=== PATIENT | male | born 1970 | race Caucasian/White ===

== ENCOUNTER 2022-12-29 13:15 | Outpatient (OUT) | payer OTHER, SELFPAY | END 2022-12-29 13:16 | disposition home or self-care (01) | LOC: SLEEP 12-30 07:55 | PROVIDERS: PCP Internal Medicine; Visit Provider Internal Medicine | DX: G47.33 Obstructive sleep apnea (adult) (pediatric) (principal) | CPT/HCPCS: 95806 ==

== ENCOUNTER 2023-04-20 16:53 | Outpatient (OUT) | payer OTHER, SELFPAY ==
--- NOTE | 2023-04-20 | XR_ITS ---
The [address] [address] Patient Name: MARIE DOMINIQUE MRN: [id number] date: 1970 Sex: M Assigned Patient Location: [facility] Current Patient Location: Accession/Order Number: [id number] Exam Date: 04/20/2023 17:18 Report Date: 04/21/2023 08:27 At the request of: SHAIKH PATRICK Procedure: XR cervical spine 2-3V EXAMINATION: XR cervical spine 2-3V HISTORY: neck pain M54.2 COMPARISON: No relevant comparison available. FINDINGS: BONES: Reversal of normal cervical lordosis. No acute fracture or spondylolisthesis. [id number] degenerative changes most significant C6-C7 DISC SPACES: Moderate disc space narrowing C6-C7 PARASPINOUS: Negative. No paraspinous abnormality is seen. OTHER: Negative. XR/XR cervical spine 2-3V IMPRESSION: Moderate degenerative changes C6-C7 with reversal cervical lordosis Electronically authenticated by: SUMAYA LOVE Date: 04/21/2023 08:27
== END 2023-04-20 16:54 | disposition home or self-care (01) ==
LOC: RAD 16:55
PROVIDERS: PCP Internal Medicine; Visit Provider Internal Medicine
DX: M54.2 Cervicalgia (principal)
CPT/HCPCS: 72040

== ENCOUNTER 2023-04-25 15:24 | Outpatient (RCR) | payer OTHER, SELFPAY | END 2023-05-07 15:54 | disposition home or self-care (01) | LOC: PT 15:24 | PROVIDERS: PCP Internal Medicine; Visit Provider Internal Medicine | DX: M54.2 Cervicalgia (principal) | CPT/HCPCS: 97110; 97140; 97163 ==

== ENCOUNTER 2023-05-08 23:25 | Inpatient (IN) | payer OTHER, SELFPAY ==
[2023-05-08 23:29] VITALS: BP 163/97; PULSE 82; RESP 22; TEMP 37.1; O2SAT 97; BMI 39.5
[2023-05-08 23:33] VITALS: BP 163/97; O2SAT 97
--- OUTSIDE RECORDS SUMMARY | 2023-05-08 23:43 | XMS_ITS | CCD ---
Author Name Unknown Address [address] [place] [address] Organization [facility] Care Team Providers Care Dice Dealer Name Role Phone Vj Evans Primary Care Provider [phone] VJ EVANS Referring Unavailable VJ EVANS Primary Care Unavailable VJ EVANS Referring Unavailable VJ EVANS Primary Care Unavailable Beata Cuello Unavailable FAWWAD, PINEDA H Admitting Unavailable FAWWAD, PINEDA H Attending Unavailable FAWWAD, PINEDA H Primary Care Unavailable FAWWAD, PINEDA H Admitting Unavailable FAWWAD, PINEDA H Attending Unavailable FAWWAD, PINEDA H Primary Care Unavailable FAWWAD, PINEDA H Admitting Unavailable FAWWAD, PINEDA H Attending Unavailable FAWWAD, PINEDA H Primary Care Unavailable FAWWAD, PINEDA H Consulting Unavailable Shandra Sánchez Unavailable Patricia Flower Unavailable FAWWAD, PINEDA Attending Unavailable FAWWAD, PINEDA Attending Unavailable Medications Current Medications Medication Drug Class(es) Dates Sig (Normalized) Sig (Original) 0.25 MG, 0.5 MG Dose 3 ML semaglutide 0.68 MG/ML Pen Injector [Ozempic] (2 sources) Ozempic (0.25 or 0.5 MG/DOSE) 2 MG/3ML as directed Subcutaneous Active dextromethorphan hydrobromide 15 mg / guaiFENesin 400 mg / pseudoephedrine hydrochloride 60 mg oral tablet (1 source) alpha-Adrenergic Agonist, Uncompetitive C-uvzkjs-E-aspartat e Receptor Antagonist, Sigma-1 Agonist Start: 03-15-2023 take 4 tablets by mouth every twenty-four hours as needed Capmist DM 60-15-400 MG as needed Orally every 4-6 hours as needed, max 4 tablets in 24 hours for 5 days Feb, Active hydrocortisone 10 mg/ml / neomycin 3.5 mg/ml / polymyxin b 66064 unt/ml otic solution (1 source) Aminoglycoside Antibacterial, Polymyxin-class Antibacterial, Corticosteroid Start: 07-06-2021 Neomycin-Polymyxi n-HC 3.5-22703-2 4 drops into affected ear Otic Three times a day for 7 day(s) Jun, Active predniSONE 20 mg oral tablet (3 sources) Start: 12-19-2022 take 1 tablet by mouth every twelve hours prednisone 20 MG 1 tablet Orally BID for 5 Feb, Active Problems Active Problems Problem Classification Problem Date Documented Da te Episodic/Chronic Other upper respiratory infections (2 sources) Acute pharyngitis, unspecified; Translations: [Acute upper respiratory infection, unspecified] Episodic Unclassified (3 sources) Patient encounter status; Translations: [Screening PSA (prostate specific antigen)] Past or Other Problems Problem Classification Problem Date Documented Da te Episodic/Chronic Other ear and sense organ disorders (1 source) Impacted cerumen, left ear Onset: 07-06-2021 Resolved: 07-06-2021 Episodic Other screening for suspected conditions (not mental disorders or infectious disease) (2 sources) Encounter for screening for diabetes mellitus; Translations: [Encounter for screening for lipoid disorders] Onset: 09-17-2021 Episodic Unclassified (1 source) Contact with and (suspected) exposure to covid-19 Z20.822 Viral infection (1 source) COVID-19 Results Test Name Value Interpretation Reference Range Facility COVID/FLU RT-PCRon SARS-CoV-2 (COVID-19) RNA CARLOS+probe Ql (Unsp spec) Negative [facility] Other COVID/FLU RT-PCR Negative [employer] Other COVID Quick Testingon 2022 Result Positive [facility] Other Quick Strepon 12-19-2022 S. pyogenes Org specific cx Ql (Throat) Negative [facility] Other Quick Strep [facility] Other CBC AUTO DIFFon 09-10-2021 BASO # 0.1 103/ul Normal 0.0-0.1 [facility] Comment on above: Performed By: #### C BC #### [facility] [address] [place] [address] Dr. Taylor Obregon Basophils/100 WBC (Bld) 0.6 % Normal 0.2-2.0 [facility] Comment on above: Performed By: #### C BC #### [facility] [address] [place] [address] Dr. Taylor Obregon EO # 0.1 103/ul Normal 0.0-0.7 [facility] Comment on above: Performed By: #### C BC #### [facility] [address] [place] [address] Dr. Taylor Obregon Eosinophils/100 WBC (Bld) 1.3 % Normal 0.9-7.0 [facility] Comment on above: Performed By: #### C BC #### [facility] [address] [place] [address] Dr. Taylor Obregon Erythrocyte distribution width (RBC) [Ratio] 12.7 % Normal 11.0-15.0 [facility] Comment on above: Performed By: #### C BC #### [facility] [address] [place] [address] Dr. Taylor Obregon Hematocrit (Bld) [Volume fraction] 43.3 % Normal 42.0-54.0 [facility] Comment on above: Performed By: #### C BC #### [facility] [address] [place] [address] Dr. Taylor Obregon Hemoglobin (Bld) [Mass/Vol] 14.5 g/dL Normal 14.0-18.0 [facility] Comment on above: Performed By: #### C BC #### [facility] [address] [place] [address] Dr. Taylor Obregon IG # 0.01 10e3/ul Normal 0.00-0.03 [facility] Comment on above: Performed By: #### C BC #### [facility] [address] [place] [address] Dr. Taylor Obregon IG % 0.1 % Normal 0.0-0.5 [facility] Comment on above: Performed By: #### C BC #### [facility] [address] [place] [address] Dr. Taylor Obregon LYMPH # 3.1 103/ul Normal 1.2-3.8 [facility] Comment on above: Performed By: #### C BC #### [facility] [address] [place] [address] Dr. Taylor Obregon Lymphocytes/100 WBC (Bld) 39.4 % Normal 20.5-60.0 [facility] Comment on above: Performed By: #### C BC #### [facility] [address] [place] [address] Dr. Taylor Obregon MANUAL DIFF REQ NO Normal [facility] Comment on above: Performed By: #### C BC #### [facility] [address] [place] [address] Dr. Taylor Obregon MCH (RBC) [Entitic mass] 30.2 pg Normal 25.9-34.0 [facility] Comment on above: Performed By: #### C BC #### [facility] [address] [place] [address] Dr. Taylor Obregon MCHC (RBC) [Mass/Vol] 33.5 g/dL Normal 29.9-35.2 [facility] Comment on above: Performed By: #### C BC #### [facility] [address] [place] [address] Dr. Taylor Obregon MCV (RBC) [Entitic vol] 90.2 fL Normal 80.0-94.0 [facility] Comment on above: Performed By: #### C BC #### [facility] [address] [place] [address] Dr. Taylor Obregon MONO # 0.6 103/ul Normal 0.3-0.8 [facility] Comment on above: Performed By: #### C BC #### [facility] [address] [place] [address] Dr. Taylor Obregon Monocytes/100 WBC (Bld) 7.2 % Normal 1.7-12.0 [facility] Comment on above: Performed By: #### C BC #### [facility] [address] [place] [address] Dr. Taylor Obregon NEUT # 4.1 103/ul Normal 1.4-6.5 [facility] Comment on above: Performed By: #### C BC #### [facility] [address] [place] [address] Dr. Taylor Obregon Neutrophils/100 WBC (Bld) 51.4 % Normal 43.0-75.0 [facility] Comment on above: Performed By: #### C BC #### [facility] [address] [place] [address] Dr. Taylor Obregon Platelet mean volume (Bld) [Entitic vol] 9.5 fL Normal 9.5-13.5 [facility] Comment on above: Performed By: #### C BC #### [facility] [address] [place] [address] Dr. Taylor Obregon PLT 249 103/ul Normal 150-450 [facility] Comment on above: Performed By: #### C BC #### [facility] [address] [place] [address] Dr. Taylor Obregon RBC 4.80 106/ul Normal 4.70-6.10 [facility] Comment on above: Performed By: #### C BC #### [facility] [address] [place] [address] Dr. Taylor Obregon WBC 7.9 103/ul Normal 4.0-11.0 [facility] Comment on above: Performed By: #### C BC #### [facility] [address] [place] [address] Dr. Taylor Obregon GLYCOHEMOGLOBIN A1Con 2021 ADA RECOMMENDATION SEE BELOW Normal [facility] Comment on above: Result Comment: ADA RECOMMENDED LIMIT 4.0 - 6.0 ADA THERAPEUTIC TARGET < 7.0 ACTION SUGGESTED > 7.0 Performed By: #### A 1C #### [facility] [address] [place] [address] Dr. Taylor Obregon Glucose [Mass/Vol] 140 mg/dL Normal [facility] Comment on above: Performed By: #### A 1C #### [facility] [address] [address] [address] Taylor Obregon HbA1c (Bld) [Mass fraction] 6.5 % Critically high 4.5-6.2 [facility] Comment on above: Performed By: #### A 1C #### [facility] [address] [place] [address] Dr. Taylor Obregon LIPID PROFILEon 09-10-2021 CHOL-HDL RATIO NORM SEE BELOW Normal [facility] Comment on above: Result Comment: 3.3 - 4.4 LOW RISK 4.4 - 7.1 AVERAGE RISK 7.1 - 11.0 MODERATE RISK >11.0 HIGH RISK Performed By: #### L IPID, CMP #### [facility] [address] [place] [address] Dr. Taylor Obregon Cholesterol [Mass/Vol] 176 mg/dL Normal <=200 [facility] Comment on above: Performed By: #### L IPID, CMP #### [facility] [address] [place] [address] Dr. Taylor Obregon Cholesterol in HDL [Mass/Vol] 40 mg/dL Normal 40-60 [facility] Comment on above: Performed By: #### L IPID, CMP #### [facility] [address] [place] [address] Dr. Taylor Obregon Cholesterol in LDL [Mass/Vol] 116.4 mg/dL Normal [facility] Comment on above: Performed By: #### L IPID, CMP #### [facility] [address] [place] [address] Dr. Taylor Obregon Cholesterol.total/Ch olesterol in HDL [Mass ratio] 4.4 {ratio} Normal [facility] Comment on above: Performed By: #### L IPID, CMP #### [facility] [address] [address] [address] Taylor Obregon HDL NORMAL > or = 60 mg/dl - LOW CARDIOVASCULAR RISK <40 mg/dl - HIGH CARDIOVASCULAR RISK Normal [facility] Comment on above: Performed By: #### L IPID, CMP #### [facility] [address] [address] [address] Taylor Obregon LDL CALC NORMAL SEE BELOW Normal [facility] Comment on above: Result Comment: <100 mg/dl OPTIMAL 100 - 129 mg/dl NEAR OR ABOVE OPTIMAL 130 - 159 mg/dl BORDERLINE HIGH 160 - 189 mg/dl HIGH >190 mg/dl VERY HIGH Performed By: #### L IPID, CMP #### [facility] [address] [place] [address] Dr. Taylor Obregon Triglyceride [Mass/Vol] 98 mg/dL Normal <=150 [facility] Comment on above: Performed By: #### L IPID, CMP #### [facility] [address] [address] [address] Taylor Obregon VLDL CALC 19.6 mg/dL Normal [facility] Comment on above: Performed By: #### L IPID, CMP #### [facility] [address] [place] [address] Dr. Taylor Obregon PROF 14(COMP METB)on 022 Albumin [Mass/Vol] 4.0 g/dL Normal 3.4-5.0 [facility] Comment on above: Performed By: #### L IPID, CMP #### [facility] [address] [place] [address] Dr. Taylor Obregon Albumin/Globulin [Mass ratio] 1.1 {ratio} Normal [facility] Comment on above: Performed By: #### L IPID, CMP #### [facility] [address] [place] [address] Dr. Taylor Obregon ALP [Catalytic activity/Vol] 65 U/L Normal 46-116 [facility] Comment on above: Performed By: #### L IPID, CMP #### [facility] [address] [place] [address] Dr. Taylor Obregon ALT [Catalytic activity/Vol] 40 U/L Normal 16-63 [facility] Comment on above: Performed By: #### L IPID, CMP #### [facility] [address] [place] [address] Dr. Taylor Obregon Anion gap [Moles/Vol] 11.4 mmol/L Normal [facility] Comment on above: Performed By: #### L IPID, CMP #### [facility] [address] [place] [address] Dr. Taylor Obregon AST [Catalytic activity/Vol] 23 U/L Normal 15-37 [facility] Comment on above: Performed By: #### L IPID, CMP #### [facility] [address] [place] [address] Dr. Taylor Obregon Bilirubin [Mass/Vol] 0.5 mg/dL Normal 0.2-1.0 [facility] Comment on above: Performed By: #### L IPID, CMP #### [facility] [address] [place] [address] Dr. Taylor Obregon Calcium [Mass/Vol] 9.3 mg/dL Normal 8.5-10.1 [facility] Comment on above: Performed By: #### L IPID, CMP #### [facility] [address] [place] [address] Dr. Taylor Obregon Chloride [Moles/Vol] 103 mmol/L Normal 98-107 [facility] Comment on above: Performed By: #### L IPID, CMP #### [facility] [address] [place] [address] Dr. Taylor Obregon CO2 [Moles/Vol] 25.8 mmol/L Normal 21.0-32.0 [facility] Comment on above: Performed By: #### L IPID, CMP #### [facility] [address] [place] [address] Dr. Taylor Obregon Creatinine [Mass/Vol] 1.15 mg/dL Normal 0.70-1.30 [facility] Comment on above: Performed By: #### L IPID, CMP #### [facility] [address] [address] [address] Taylor Obregon EGFR-AF WELSH >60 Normal >=60 [facility] Comment on above: Performed By: #### L IPID, CMP #### [facility] [address] [address] [address] Taylor Obregon EGFR-NON AF WELSH >60 Normal >=60 [facility] Comment on above: Performed By: #### L IPID, CMP #### [facility] [address] [address] [address] Taylor Obregon Globulin (S) [Mass/Vol] 3.7 g/dL Normal [facility] Comment on above: Performed By: #### L IPID, CMP #### [facility] [address] [place] [address] Dr. Taylor Obregon Glucose [Mass/Vol] 115 mg/dL Critically high 74-106 [facility] Comment on above: Performed By: #### L IPID, CMP #### [facility] [address] [place] [address] Dr. Taylor Obregon Potassium [Moles/Vol] 4.2 mmol/L Normal 3.5-5.1 [facility] Comment on above: Performed By: #### L IPID, CMP #### [facility] [address] [place] [address] Dr. Taylor Obregon Protein [Mass/Vol] 7.7 g/dL Normal 6.4-8.2 [facility] Comment on above: Performed By: #### L IPID, CMP #### [facility] [address] [place] [address] Dr. Taylor Obregon Sodium [Moles/Vol] 136 mmol/L Normal 136-145 [facility] Comment on above: Performed By: #### L IPID, CMP #### [facility] [address] [place] [address] Dr. Taylor Obregon Urea nitrogen [Mass/Vol] 16.0 mg/dL Normal 7.0-18.0 [facility] Comment on above: Performed By: #### L IPID, CMP #### [facility] [address] [address] [address] Taylor Obregon Urea nitrogen/Creatinine [Mass ratio] 13.9 mg/mg Normal [facility] Comment on above: Performed By: #### L IPID, CMP #### [facility] [address] [address] [address] KNEE LEFT WO CONTRASTon 0 12-14-2019 CT KNEE LEFT WO CONTRAST EXAMINATION: CT OF THE LEFT KNEE WITHOUT CONTRAST 12/14/2019 1:41 pm TECHNIQUE: CT of the left knee was performed without the administration of intravenous contrast. Multiplanar reformatted images are provided for review. Dose modulation, iterative reconstruction, and/or weight based adjustment of the mA/kV was utilized to reduce the radiation dose to as low as reasonably achievable. COMPARISON: None HISTORY ORDERING SYSTEM PROVIDED HISTORY: Sprain of left knee, unspecified ligament, initial encounter TECHNOLOGIST PROVIDED HISTORY: pain Reason for Exam: patient sprained his left knee Acuity: Unknown Type of Exam: Unknown 49-year-old male who sprained left knee. FINDINGS: Bones: Bone island in the lateral femoral condyle measuring 1.1 cm. Fragmentation of the anterior tibial tubercle likely related to remote Mcdonough-Schlatter's disease. Osseous alignment is normal. No acute fracture or dislocation. Bone island at the central femoral trochlea on images 26, series 602 measuring 8 mm. Soft Tissue: ACL and PCL are seen in their expected locations. Iliotibial band, biceps femoris, popliteus muscle/tendon and lateral collateral ligament as well as the MCL are seen in their expected locations. Distal quadriceps tendon and patellar tendon are seen in their expected locations. Joint: Small joint effusion. Mild degenerative changes of the patellofemoral compartment. Medial and lateral compartment joint spaces are relatively well maintained. IMPRESSION: 1. Bone islands as detailed above. Remote Dennis-Schlatter's disease. 2. No acute fracture or dislocation. 3. Small joint effusion. 4. Mild degenerative change of the patellofemoral compartment. Interpreted by: Luis Leslie MD Signed by: Luis Leslie MD 12/14/19 Final result Normal [facility] Glucose, Fastingon 0 Glucose [Mass/Vol] 110 mg/dL High 70-99 [facility] Comment on above: Performed By: #### G LUF, LIPRF, PSAS #### [facility] [place] [address] Sign Painter Helper: Param Hancock MD Glucose [Mass/Vol] 110 mg/dL High 70 - 99 mg/dL [facility] [place] Lipid Prof, Fastingon 2019 Cholesterol [Mass/Vol] 173 mg/dL Normal <200 [facility] Comment on above: Result Comment: Cholesterol Guidelines: <200 Desirable 200-240 Borderline >240 Undesirable Performed By: #### G LUF, LIPRF, PSAS #### [facility] [address] [place] [id number] Sign Painter Helper: Param Hancock MD Cholesterol in HDL [Mass/Vol] 37 mg/dL Low >40 [facility] Comment on above: Result Comment: HDL Guidelines: <40 Undesirable 40-59 Borderline >59 Desirable Performed By: #### G MARANDA, LIPRF, PSAS #### [facility] [address] [place] [id number] Sign Painter Helper: Param Hancock MD Cholesterol in LDL [Mass/Vol] 108 mg/dL Normal 0-130 [facility] Comment on above: Result Comment: LDL Guidelines: <100 Desirable 100-129 Near to/above Desirable 130-159 Borderline >159 Undesirable Direct (measured) LDL and calculated LDL are not interchangeable tests. Performed By: #### G KATERINAF, LIPRF, PSAS #### [facility] [address] [place] [id number] Sign Painter Helper: Param Hancock MD Cholesterol.total/Ch olesterol in HDL [Mass ratio] 4.7 {ratio} Normal <5 [facility] Comment on above: Performed By: #### G LUF, LIPRF, PSAS #### [facility] [address] [place] [phone] Sign Painter Helper: Param Hancock MD Triglyceride,Fasting 139 mg/dL Normal <150 [facility] Comment on above: Result Comment: Triglyceride Guidelines: <150 Desirable 150-199 Borderline 200-499 High >499 Very high Based on AHA Guidelines for fasting triglyceride, January 2012. Performed By: #### G REJI LOW, PSAS #### [facility] [address] [place] [address] Sign Painter Helper: Param Hancock MD Cholesterol in VLDL [Mass/Vol] NOT REPORTED Normal 1-30 [facility] Comment on above: Performed By: #### G KATERINAF, LIPRF, PSAS #### [facility] [address] [place], [place] [id number] Sign Painter Helper: Param Hancock MD Lipid, Fastingon 10-12-2019 Cholesterol [Mass/Vol] 173 mg/dL <200 [place], [place] Comment on above: Cholesterol Guidelines: <200 Desirable 200-240 Borderline >240 Undesirable Cholesterol in HDL [Mass/Vol] 37 mg/dL Low >40 [place] Comment on above: HDL Guidelines: <40 Undesirable 40-59 Borderline >59 Desirable Cholesterol in LDL [Mass/Vol] 108 mg/dL 0 - 130 mg/dL [place] Comment on above: LDL Guidelines: <100 Desirable 100-129 Near to/above Desirable 130-159 Borderline >159 Undesirable Direct (measured) LDL and calculated LDL are not interchangeable tests. Cholesterol in VLDL [Mass/Vol] NOT REPORTED 1 - 30 mg/dL [place], [place] Cholesterol.total/Ch olesterol in HDL [Mass ratio] 4.7 {ratio} <5 [place] Triglyceride, Fasting 139 mg/dL <150 [place], [place] Comment on above: Triglyceride Guidelines: <150 Desirable 150-199 Borderline 200-499 High >499 Very high Based on AHA Guidelines for fasting triglyceride, January 2012. Otheron 10-12-2019 Interpretation and review of laboratory results Abnormal [place], [place] PSA, Screeningon 10-12-2019 Prostatic Spec. Ag 1.34 ug/L Normal <4.1 [facility] Comment on above: Result Comment: The [employer] ECLIA assay is used. Results obtained with different assay methods cannot be used interchangeably. Performed By: #### G LUF, LIPRF, PSAS #### [facility] [employer] [address] [place] [address] Sign Painter Helper: Param Hancock MD Vital Signs Date Time Vital Sign Value Performing Clinician Facility 03-15-2023 17:20-0500 Body height 175.26 cm Patricia Flower Other [facility] Other 03-15-2023 17:20-0500 Body mass index (BMI) [Ratio] 41.43 kg/m2 Patricia Flower Other [facility] Other 03-15-2023 17:20-0500 Body temperature 99 [degF] Patricia Flower Other [facility] Other 03-15-2023 17:20-0500 Body weight 127.28 kg Patricia Flower Other [facility] Other 03-15-2023 17:20-0500 Diastolic blood pressure 71 mm[Hg] Patricia Flower Other [facility] Other 03-15-2023 17:20-0500 Respiratory rate 18 /min Patricia Flower Other [facility] Other 03-15-2023 17:20-0500 SaO2% (BldA) [Mass fraction] 95 % Patricia Flower Other [facility] Other 03-15-2023 17:20-0500 Systolic blood pressure 119 mm[Hg] Patricia Flower Other [facility] Other 12-19-2022 14:20-0400 Body height 175.26 cm Shandra Sánchez Other [facility] Other 12-19-2022 14:20-0400 Body mass index (BMI) [Ratio] 40.4 kg/m2 Shandra Sánchez Other [facility] Other 12-19-2022 14:20-0400 Body temperature 102 [degF] Shandra Sánchez Other [facility] Other 12-19-2022 14:20-0400 Body weight 124.1 kg Shandra Sánchez Other [facility] Other 12-19-2022 14:20-0400 Diastolic blood pressure 91 mm[Hg] Shandra Sánchez Other [facility] Other 12-19-2022 14:20-0400 Respiratory rate 20 /min Shandra Sánchez Other [facility] Other 12-19-2022 14:20-0400 SaO2% (BldA) [Mass fraction] 94 % Shandra Sánchez Other [facility] Other 12-19-2022 14:20-0400 Systolic blood pressure 124 mm[Hg] Shandra Sánchez Other [facility] Other 07-06-2021 16:30-0400 Body height 175.26 cm Beata Cuate Other [facility] Other 07-06-2021 16:30-0400 Body mass index (BMI) [Ratio] 40.61 kg/m2 Beata Cuate Other [facility] Other 07-06-2021 16:30-0400 Body temperature 98.4 [degF] Beata Cuate Other [facility] Other 07-06-2021 16:30-0400 Body weight 124.74 kg Beata Cuello Other [facility] Other 07-06-2021 16:30-0400 Diastolic blood pressure 81 mm[Hg] Beata Cuello Other [facility] Other 07-06-2021 16:30-0400 Respiratory rate 20 /min Beata Cuello Other [facility] Other 07-06-2021 16:30-0400 SaO2% (BldA) [Mass fraction] 99 % Beata Cuello Other [facility] Other 07-06-2021 16:30-0400 Systolic blood pressure 122 mm[Hg] Beata Cuello Other [facility] Other Encounters Encounter Date Encounter Type Care Provider Facility Start: 04-28-2023 End: 04-28-2023 ambulatory SHAIKH PATRICK Not Available Start: 04-20-2023 End: 04-20-2023 ambulatory SHAIKH PATRICK Not Available Start: 03-15-2023 End: 03-15-2023 ambulatory Patricia Flower Other [facility] Other Start: 03-15-2023 Office outpatient vi sit 25 minutes Patricia Flower [facility] Start: 12-19-2022 End: 12-19-2022 ambulatory Shandra Sánchez Other [facility] Other Start: 12-19-2022 Office outpatient vi sit 15 minutes Shandra Sánchez [facility] Start: 06-10-2022 ambulatory SHAIKH Triston NGUYEN Facilit y:H1 Start: 10-13-2021 ambulatory SHAIKH Triston NGUYEN Facilit y:[facility]1 Start: 09-17-2021 Encounter for genera l adult medical examination without abnormal findings SHAIKH Triston NGUYEN [facility] Start: 09-10-2021 End: 09-11-2021 ambulatory SHAIKH Triston NGUYEN Facility:[facility] Start: 09-10-2021 End: 09-11-2021 Encounter for general adult medical examination without abnormal findings SHAIKH Triston NGUYEN Facility:[facility]1 Start: 07-06-2021 End: 07-06-2021 ambulatory Beata Cuello Other [place] [facility] Other Start: 07-06-2021 Office outpatient vi sit 25 minutes Beata Cuello [facility] Start: 12-14-2019 End: 12-17-2019 Patient encounter procedure VJ Holly [facility] Start: 10-12-2019 End: 10-13-2019 [facility] Start: 10-12-2019 End: 10-12-2019 Subsequent hospital visit by physician [facility] Comment on above: Screening PSA (prost ate specific antigen); Screening for diabetes mellitus; Encounter for lipid screening for cardiovascular disease Procedures Date Procedure Procedure Detail Performing Clinician Start: 12-14-2019 Ct lower extremity w /o contrast material VJ EVANS Start: 10-12-2019 [object Object] Vj gaitan Comment on above: The Kavin ECLIA as say is used. Results obtained with different assay methods cannot be used interchangeably. Start: 10-12-[address] gtt 3 specimens VJ EVANS Start: 10-12-2019 Lipid panel VJ SANTOSAMBER NICK Start: 10-12-2019 PSA screening VJ NANCY DAILY Start: 10-12-[address] gtt 3 specimens Vj Holly Cristina Work Phone: Start: 10-12-2019 Lipid panel Vj Holly Santosleroy sean Work Phone: Start: 10-12-2019 PSA screening Vj Avni Santos gaitan Work Phone: Plan of Treatment Date Care Activity Detail Author Start: 12-18-2019 Influenza vaccination Flu vacc ine (Season Ended) [place], [place] Start: 2019 Screening for malign ant neoplasm of colon Colon cancer screen colonoscopy [place], [place] Start: 2019 Shingles Vaccine (1 of 2) Shingles Vaccine (1 of 2) [place], [place] Start: 2009 Lipid panel Lipid screen [place], [place] Start: 1988 DTaP/Tdap/Td vaccine (1 - Tdap) DTaP/Tdap/Td vaccine (1 - Tdap) [place], [place] Start: 1984 HIV screening HIV screen [place], [place] Immunizations Immunization Date Immunization Notes Care Provider Marty martinez 01-24-2016 tetanus toxoid, reduced diphtheria toxoid, and acellular pertussis vaccine, adsorbed Beata Cuello Other [facility] Other Payers Date Payer Category Payer Private Health Insurance [employer] A ETNA NAP CHOICE POS II xxxxxxxxxx 2019-Present [phone] [address] [place] [address] xxxxxxxxxx [id number] 1970 Unknown [id number] 1970 Unknown [id number] 1970 Unknown [id number] 1970 Unknown [id number] 1970 Unknown [id number] 1970 Unknown [id number] 1970 Unknown [id number] 1960 Private Health Insurance [id number] 1960 Self-pay Private Health Insurance [id number] Social History Date Type Detail Facility Start: 10-12-2019 Tobacco smoking status NHIS Never smoker [place], [place] Start: 10-12-2019 Alcohol intake Ex-drinker (finding) [place], [place] Sex Assigned At Not on file [place], [place] Sex Assigned At Sex Assigned At Bir th [facility] Other Evaluation note 03-15-2023 Note Date & Type Note Facility 03-15-2023 Evaluation note Encounter Date Diagnosis Assessment Notes Feb, Contact with and (suspected) exposure to covid-19 (ICD-10 - Z20.822) Feb, Viral URI with cough (ICD-10 - J06.9) Advised patient that COVID/Influenza A/B test PCR test was negative today. Advised patient that will treat as viral URI. Supportive care as directed, increase fluids and rest, Tylenol as directed, rx of Capmist and steroid, cool mist humidifier, throat lozenges. Discussed infection control practices such as good hand washing and mask wearing. Patient to follow up with PCP if symptoms persist or worsen despite treatment. Immediate eval for SOB, difficulty breathing, chest pain, fevers that do not break with antipyretic or any other concerning symptoms as reviewed on patient education handout. Patient verbalizes understanding and is agreeable to treatment plan. Patient left in stable condition [facility] Other Evaluation note 12-19-2022 Note Date & Type Note Facility 12-19-2022 Evaluation note Encounter Date Diagnosis Assessment Notes Dec, Sore throat (ICD-10 - J02.9) Dec, COVID-19 (ICD-10 - U07.1) Discharge Instructions for COVID-19 (Suspected or Confirmed ) material was printed Drink plenty fluids, get plenty of rest. Take Tylenol or Motrin for aches pains or fevers. You must quarantine for 5 days after the onset of your symptoms of COVID. Follow-up with your family physician if no improvement in 2 to 3 days [facility] Other Evaluation note 07-06-2021 Note Date & Type Note Facility 07-06-2021 Evaluation note Encounter Date Diagnosis Assessment Notes Jun, Impacted cerumen of left ear (ICD-10 - H61.22) Ear wax removal completed in office today. Recommend Debrox ear drops as directed in box to prevent future impaction as well as refraining from using Q-tips or other objects to clear out ears. Follow up with PCP or ENT if no improvement of symptoms or symptom return [facility] Other History general Narrative - Reported Note Date & Type Note Facility History general Narrative - Reported Type Surgical History right leg plates inserted 2015 Surgical History wisdom teeth Surgical History vasectomy Hospitalization History see above [facility] Other History general Narrative - Reported Note Date & Type Note Facility History general Narrative - Reported Type Surgical History right leg plates inserted 2015 Surgical History wisdom teeth Surgical History vasectomy Surgical History leg knee surgery Hospitalization History see above [facility] Other Assessments Diagnosis Screening PSA (prostate specific antigen) Special screening for malignant neoplasm of prostate Screening for diabetes mellitus Encounter for lipid screening for cardiovascular disease Advance Directives No Advanced Directives Records FoundDocuments on File Type Date Recorded Patient Digital Advisor Expl anation Advance Directives and Living Will Power of Adult Basic Education Instructor Summary Purpose Family History No Family History Records FoundNo Family History Records FoundNo Family History Records FoundNo Family History Records Found Additional Source Comments (unrecognized sect ion and content) No Status Records FoundNo Status Records FoundNo Status Records FoundNo Status Records Found INFORMATION SOURCE (unrecogn ized section and content) DATE CREATED AUTHOR 11/07/2019 [facility] DATE CREATED AUTHOR AUTHOR'S ORGANIZ ATION 12/17/2019 [facility] DATE CREATED AUTHOR AUTHOR'S ORGANIZ ATION 05/27/[address] [facility] DATE CREATED AUTHOR AUTHOR'S ORGANIZ ATION 04/30/2023 [facility] EPIC REASON FOR VISIT (unrecogniz ed section and content) LEFT EAR FEELS CLOGGEDCHEST HURTS WHEN HE COUGH, HEADACHE, CHILLS, COLD AND WEAKTHROAT SORE, NOSE INFECTION, COUGH, DRAINAGE, PHLEM FOR RECORDS PERTAINING TO PATIENTS WHO ARE OR HAVE BEEN ENROLLED IN A CHEMICAL DEPENDENCY/SUBSTANCEABUSE PROGRAM, SOME INFORMATION MAY BE OMITTED. This clinical summary was aggregated from multiple sources. Caution should be exercised in using it in the provision of clinical care. This summary normalizes information from multiple sources, and as a consequence, information in this document may materially change the coding, format and clinical context of patient data. In addition, data may be omitted in some cases. CLINICAL DECISIONS SHOULD BE BASED ON THE PRIMARY CLINICAL RECORDS. [employer] [facility]. provides no warranty or guarantee of the accuracy or completeness of information in this document.
--- NOTE | 2023-05-08 23:48 | ED_ITS ---
HPI - Fall General Chief Complaint: Fall Stated Complaint: BACK PAIN/ LEG WEAKNESS Time Seen by Provider: 05/08/23 23:40 Source: patient Mode of arrival: walk-in Limitations: no limitations History of Present Illness HPI Narrative: presents complaining of upper back pain ongoing since march. Seen by his PCP. States xray demonstrated degenerative disc disease. Treated with steroids and pain improved but did not resolved. has had a numbing sensation of his arms and across his chest. States his legs have felt weak for at least a couple of weeks. Now presents stating his hands and legs feel week bilat. 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 Standing tonight his left leg gave out and he fell back onto his tailbone and also struck his head. Family insisted he come in. Describes a numbness of his arms and across his chest Related Data Home Medications Medication Instructions Recorded Confirmed baclofen 10 mg tablet 10 mg PO BID 05/09/23 05/09/23 gabapentin 300 mg capsule 300 mg PO BID 05/09/23 05/09/23 meloxicam 15 mg tablet 15 mg PO DAILY 05/09/23 05/09/23 semaglutide 0.25 mg or 0.5 mg (2 0.25 mg subcut QWEEK 05/09/23 05/09/23 mg/1.5 mL) subcutaneous pen injector Allergies Allergy/AdvReac Type Severity Reaction Status Date / Time No Known Drug Allergies Allergy Verified 05/08/23 23:37 Review of Systems ROS Status of ROS 10 or more systems reviewed and unremark able except as noted in history and below [facility] Medical History (Updated 05/09/23 @ 12:30 by Ruddy Cash MD) Fall ?W19.XXXA - Unspecified fall, initial encounter (ICD-10) Degenerative tear of left medial meniscus ?M23.204 - Derangement of unspecified medial meniscus due to old tear or injury, left knee (ICD-10) Right leg injury ?S89.91XA - Unspecified injury of right lower leg, initial encounter (ICD-10) Weakness ?R53.1 - Weakness (ICD-10) Numbness ?R20.0 - Anesthesia of skin (ICD-10) Back pain ?M54.9 - Dorsalgia, unspecified (ICD-10) Surgical History (Updated 05/09/23 @ 02:31 by Anuja Walsh) H/O: vasectomy ?Z98.52 - Vasectomy status (ICD-10) Family History (Updated 05/09/23 @ 02:31 by Anuja Walsh) Mother Family history of diabetes mellitus Social History (Updated 05/09/23 @ 02:32 by Anuja Walsh) Within the past year, how often did you have a drink containing alcohol: never Score interpretation: A score less than 4 is consistent with normal alcohol consumption. 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 Highest level of school completed/degree received: Associate degree: academic program Are you now , , , , never or living with a partner: In a typical week, how many times do you talk on the telephone with family, friends, or neighbors: 3 or more times per week How often do you get together with friends or relatives: 3 or more times per week How often do you attend mu-ism or holiness services: never Do you belong to any clubs or organizations such as mu-ism groups unions, 55social or athletic groups, or school groups: no Total score: 2 Score interpretation: A score of greater than or equal to 2 indicates the lowest level of social isolation. Little interest or pleasure in doing things: not at all Feeling down, depressed, or hopeless: not at all Feel stressed/tense/nervous/anxious/difficulty sleeping: not at all Do you think of yourself as: straight/heterosexual Gender Identity: male Exam Constitutional Vital Signs, click to edit/add: Last Vital Signs Temp 97.9 F 05/09/23 13:29 Pulse 85 05/09/23 13:29 Resp 20 05/09/23 19:25 BP 128/79 05/09/23 13:29 Pulse Ox 97 05/09/23 13:29 O2 Del Method Room Air 05/09/23 13:29 Common normals: no apparent distress, average body habitus, oriented x3, no limitations, healthy appearing, alert and well nourished [facility] Common normals: normocephalic and head/scalp atraumatic Eye Common normals: PERRL, EOMs intact bilaterally and conjunctivae normal Respiratory Common normals: normal respiratory effort, no retractions, no use of accessory muscles and clear to auscultation bilaterally Cardio Common normals: regular rate, regular rhythm, S1 normal heart sound and S2 normal heart sound GI Common normals: Normal to inspection, nondistended, normoactive bowel sounds present, soft to palpation and non-tender Extremity Common normals: normal to inspection and full ROM Neuro Common normals: oriented x3, CN's II-XII intact bilaterally, moves all extremities, no focal motor deficits, no sensory deficits noted and deep tendon reflexes 2+ bilaterally (reflexes are not hype reflexive ) Psych Appearance: grossly normal Course Vital Signs Vital signs: Vital Signs Temperature 98.8 F 05/08/23 23:29 Pulse Rate 82 05/08/23 23:29 Respiratory Rate 22 05/08/23 23:29 Blood Pressure 163/97 H 05/08/23 23:29 Pulse Oximetry 97 05/08/23 23:29 Oxygen Delivery Method Room Air 05/08/23 23:29 Temperature 97.9 F 05/09/23 13:29 Pulse Rate 85 05/09/23 13:29 Respiratory Rate 20 05/09/23 19:25 Blood Pressure 128/79 05/09/23 13:29 Pulse Oximetry 97 05/09/23 13:29 Oxygen Delivery Method Room Air 05/09/23 13:29 MDM - Fall MDM Narrative Medical decision making narrative: patient presents complaining of pain of his upper thoracic spine area ongoing for past month. States he did see his PCP who treated him with steroids and the pain improved but did not resolved. has continued to experience numbing sensation of his arms and across his chest. Legs have felt weak for a couple of weeks. 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 Tonight he was standing in the bathroom and his left leg gave out and he fell. He now presents for evaluation. His exam is unremakable. CT with beam artifact of C-spine. no acute fracture. T-spine normal . CT L spine with mod-severe right and mod. left neural foraminal stenosis. Discussed with Neurologist Dr Hernandez at [facility] who recommends obs admission and MRI of C-T spine. he will also need EMG on nonemergent basis. Discussed with hospitalist and will plan obs admission Lab Data Labs: Lab Results 05/09/23 Range/Units 00:05 WBC 8.8 (4.0-11.0) 10^3/uL RBC 4.67 L (4.70-6.10) 10^6/uL Hgb 14.3 (14.0-18.0) g/dL Hct 42.9 (42.0-54.0) % MCV 91.9 (80.0-94.0) fL MCH 30.6 (25.9-34.0) pg MCHC 33.3 (29.9-35.2) g/dL RDW 12.4 (11.0-15.0) % Plt Count 236 (150-450) 10^3/uL MPV 8.9 L (9.5-13.5) fL Neut % (Auto) 52.6 (43.0-75.0) % Lymph % (Auto) 36.3 (20.5-60.0) % Overton % (Auto) 8.8 (1.7-12.0) % Eos % (Auto) 1.5 (0.9-7.0) % Baso % (Auto) 0.6 (0.2-2.0) % Neut # (Auto) 4.6 (1.4-6.5) 10^3/uL Lymph # (Auto) 3.2 (1.2-3.8) 10^3/uL Overton # (Auto) 0.8 (0.3-0.8) 10^3/uL Eos # (Auto) 0.1 (0.0-0.7) 10^3/uL Baso # (Auto) 0.1 (0.0-0.1) 10^3/uL Abs Immat Gran (auto) 0.02 (0.00-0.03) 10^3/uL Imm/Tot Granulo (auto) 0.2 (0.0-0.5) % ESR 23 H (<=20) mm/hr Sodium 141 (136-145) mmol/L Potassium 3.7 (3.5-5.1) mmol/L Chloride 106 (98-107) mmol/L Carbon Dioxide 27.4 (21.0-32.0) mmol/L Anion Gap 11.3 BUN 18.0 (7.0-18.0) mg/dL Creatinine 1.44 H (0.70-1.30) mg/dL Est GFR ( Amer) >60 (>=60) Est GFR (Non-Af Amer) 51 L (>=60) BUN/Creatinine Ratio 12.5 Glucose 119 H (74-106) mg/dL Calcium 8.6 (8.5-10.1) mg/dL C-Reactive Protein <0.50 (<=0.50) mg/dL Imaging Data CT scan - chest: Radiologist's impression: ITS Impressions Cervical Spine CT 05/08/23 23:51 IMPRESSION: 1. No acute intracranial abnormality. No hemorrhage or mass effect. 2. Vascular calcification. 3. Allowing for Beam hardening artifacts, cervical spondylosis. No acute cervical fracture. Electronically authenticated by: STEVE LEIVA Date: 05/09/2023 00:[address] 05/08/23 23:51 IMPRESSION: 1. No acute intracranial abnormality. No hemorrhage or mass effect. 2. Vascular calcification. 3. Allowing for Beam hardening artifacts, cervical spondylosis. No acute cervical fracture. Electronically authenticated by: STEVE LEIVA Date: 05/09/2023 00:[address] 05/08/23 23:51 IMPRESSION: No acute findings of the thoracolumbar spine. Moderate disc degeneration at L5-S1 with moderate to severe right and moderate left neural foraminal stenoses. Electronically authenticated by: TERESA STEPHENS Date: 05/09/2023 01:[address] 05/08/23 23:51 IMPRESSION: No acute findings of the thoracolumbar spine. Moderate disc degeneration at L5-S1 with moderate to severe right and moderate left neural foraminal stenoses. Electronically authenticated by: TERESA STEPHENS Date: 05/09/2023 01:02 Discharge Plan Discharge Chief Complaint: Fall Clinical Impression: Paresthesia and pain of both upper extremities, Fall Patient Disposition: Admitted as Observation Discharge Date/Time: 05/09/23 02:18
--- NOTE | 2023-05-08 23:51 | CT_ITS ---
[address] [address] Patient Name: MARIE DOMINIQUE MRN: [id number] date: 1970 Sex: M Assigned Patient Location: ER Current Patient Location: Accession/Order Number: [id number] Exam Date: 05/08/2023 23:59 Report Date: 05/09/2023 00:43 At the request of: JOSE YAO Procedure: CT cervical spine wo con INDICATION: 53 years old; Male. Fell off toilet and hit side of head against the bathtub. Numbness and tingling in fingers and weakness in the legs. TECHNIQUE: CT Head (ax/cor/sag reformats). Ionizing radiation dose reduced via iterative reconstruction/FBP blend and body size kV/mA adjustment. Comparison: None FINDINGS: POSTOPERATIVE CHANGES: None. BRAIN PARENCHYMA: No focal lesions. No mass effect. No midline shift or herniation. No intraparenchymal or extra-axial hemorrhage. Normal aguilera/white differentiation. VENTRICLES/EXTRA-AXIAL SPACES: Normal for patient's age. SINUSES/MASTOIDS: The visualized sinuses are clear. Mastoids and middle ears are clear. MSK: No displaced or depressed calvarial fracture. OTHER: Vascular calcification. No hyperdense intraluminal thrombus. TECHNIQUE: CT imaging of the cervical spine was performed. IV contrast: None. Dose reduction techniques were achieved by using automated exposure control and/or adjustment of mA and/or kV according to patient size and/or use of iterative reconstruction technique. COMPARISON: None available. FINDINGS: POSTOPERATIVE CHANGES: None. ALIGNMENT: Nonspecific straightening of the normal cervical curve. COMPRESSION FRACTURES: No fracture or vertebral body collapse is seen. No bone displacement is seen. No asymmetric widening of the facets. PREVERTEBRAL SOFT TISSUES: Normal. CRANIOCERVICAL JUNCTION: There is a normal relationship of the occipital condyles, lateral masses of C1, and articular surfaces of C2. The base of the dens and body of C2 are intact. There is narrowing of the predental space with spurring arising from the anterior arch of C1 and the dens. There is additional spurring along the undersurface of the anterior arch of C1 as well as calcification at the insertion of the longus colli tendon. POSTERIOR FOSSA: Cerebellar tonsils are above the foramen magnum. Disc levels: C2-C3: No disc herniation. No spinal canal or foraminal narrowing. C3-C4: Beam hardening artifacts. Facet degeneration. Central canal patent. Neural foramina patent. C4-C5: Beam hardening artifacts. Disc space narrowing. Posterior osteophyte formation uncovertebral joint degeneration. Facet degeneration. Central canal patent. Mild right foraminal stenosis. C5-C6: Beam hardening artifacts. Central canal patent. Neural foramina patent. Facet degeneration bilaterally. C6-C7: Beam hardening artifacts. Disc space narrowing. Anterior osteophyte formation. Disc osteophyte complex and uncovertebral joint degeneration posteriorly. Mild central canal stenosis. Mild bilateral foraminal stenosis. C7-T1: Beam hardening artifacts. Bony canal is patent. UPPER THORACIC SPINE: Not included in this examination. OTHER: No thyroid nodule or adenopathy. CT/CT cervical spine wo con IMPRESSION: 1. No acute intracranial abnormality. No hemorrhage or mass effect. 2. Vascular calcification. 3. Allowing for Beam hardening artifacts, cervical spondylosis. No acute cervical fracture. Electronically authenticated by: STEVE LEIVA Date: 05/09/2023 00:43
--- NOTE | 2023-05-08 23:51 | CT_ITS ---
The [address] [address] Patient Name: MARIE DOMINIQUE MRN: [id number] date: 1970 Sex: M Assigned Patient Location: ER Current Patient Location: ER Accession/Order Number: [id number] Exam Date: 05/08/2023 23:59 Report Date: 05/09/2023 01:02 At the request of: JOSE YAO Procedure: CT lumbar spine wo con EXAM: CT thoracic spine wo con, CT lumbar spine wo con HISTORY: pain upper T-spine weakness of extremities COMPARISON: None. TECHNIQUE: CT thoracic and lumbar spine without contrast. Multiplanar reformats obtained. The current study utilizes one or more of the following dose-reduction techniques: automated exposure control, iterative reconstruction, and/or manual adjustment of tube current and voltage for size. FINDINGS: Thoracic spine: No evidence of acute fracture or traumatic malalignment. Spinal canal neural foramen are grossly patent. Mild to moderate multilevel degenerative changes. Lumbar spine: No evidence of acute fracture or traumatic malalignment. Moderate disc degeneration at L5-S1. Moderate to severe right L5-S1 neural foraminal stenosis. Moderate left L5-S1 neural foraminal stenosis. Moderate left L4-L5 neural foraminal stenosis. Spinal canal is grossly patent. CT/CT lumbar spine wo con IMPRESSION: No acute findings of the thoracolumbar spine. Moderate disc degeneration at L5-S1 with moderate to severe right and moderate left neural foraminal stenoses. Electronically authenticated by: TERESA STEPHENS Date: 05/09/2023 01:02
--- NOTE | 2023-05-08 23:51 | CT_ITS ---
[address] [address] Patient Name: MARIE DOMINIQUE MRN: [id number] date: 1970 Sex: M Assigned Patient Location: ED.MAIN Current Patient Location: Accession/Order Number: [id number] Exam Date: 05/08/2023 23:59 Report Date: 05/09/2023 00:43 At the request of: JOSE YAO Procedure: CT head/brain wo con INDICATION: 53 years old; Male. Fell off toilet and hit side of head against the bathtub. Numbness and tingling in fingers and weakness in the legs. TECHNIQUE: CT Head (ax/cor/sag reformats). Ionizing radiation dose reduced via iterative reconstruction/FBP blend and body size kV/mA adjustment. Comparison: None FINDINGS: POSTOPERATIVE CHANGES: None. BRAIN PARENCHYMA: No focal lesions. No mass effect. No midline shift or herniation. No intraparenchymal or extra-axial hemorrhage. Normal aguilera/white differentiation. VENTRICLES/EXTRA-AXIAL SPACES: Normal for patient's age. SINUSES/MASTOIDS: The visualized sinuses are clear. Mastoids and middle ears are clear. MSK: No displaced or depressed calvarial fracture. OTHER: Vascular calcification. No hyperdense intraluminal thrombus. TECHNIQUE: CT imaging of the cervical spine was performed. IV contrast: None. Dose reduction techniques were achieved by using automated exposure control and/or adjustment of mA and/or kV according to patient size and/or use of iterative reconstruction technique. COMPARISON: None available. FINDINGS: POSTOPERATIVE CHANGES: None. ALIGNMENT: Nonspecific straightening of the normal cervical curve. COMPRESSION FRACTURES: No fracture or vertebral body collapse is seen. No bone displacement is seen. No asymmetric widening of the facets. PREVERTEBRAL SOFT TISSUES: Normal. CRANIOCERVICAL JUNCTION: There is a normal relationship of the occipital condyles, lateral masses of C1, and articular surfaces of C2. The base of the dens and body of C2 are intact. There is narrowing of the predental space with spurring arising from the anterior arch of C1 and the dens. There is additional spurring along the undersurface of the anterior arch of C1 as well as calcification at the insertion of the longus colli tendon. POSTERIOR FOSSA: Cerebellar tonsils are above the foramen magnum. Disc levels: C2-C3: No disc herniation. No spinal canal or foraminal narrowing. C3-C4: Beam hardening artifacts. Facet degeneration. Central canal patent. Neural foramina patent. C4-C5: Beam hardening artifacts. Disc space narrowing. Posterior osteophyte formation uncovertebral joint degeneration. Facet degeneration. Central canal patent. Mild right foraminal stenosis. C5-C6: Beam hardening artifacts. Central canal patent. Neural foramina patent. Facet degeneration bilaterally. C6-C7: Beam hardening artifacts. Disc space narrowing. Anterior osteophyte formation. Disc osteophyte complex and uncovertebral joint degeneration posteriorly. Mild central canal stenosis. Mild bilateral foraminal stenosis. C7-T1: Beam hardening artifacts. Bony canal is patent. UPPER THORACIC SPINE: Not included in this examination. OTHER: No thyroid nodule or adenopathy. CT/CT head/brain wo con IMPRESSION: 1. No acute intracranial abnormality. No hemorrhage or mass effect. 2. Vascular calcification. 3. Allowing for Beam hardening artifacts, cervical spondylosis. No acute cervical fracture. Electronically authenticated by: STEVE LEIVA Date: 05/09/2023 00:43
--- NOTE | 2023-05-08 23:51 | CT_ITS ---
The [address] [address] Patient Name: MARIE DOMINIQUE MRN: [id number] date: 1970 Sex: M Assigned Patient Location: ER Current Patient Location: ER Accession/Order Number: [id number] Exam Date: 05/08/2023 23:59 Report Date: 05/09/2023 01:02 At the request of: JOSE YAO Procedure: CT thoracic spine wo con EXAM: CT thoracic spine wo con, CT lumbar spine wo con HISTORY: pain upper T-spine weakness of extremities COMPARISON: None. TECHNIQUE: CT thoracic and lumbar spine without contrast. Multiplanar reformats obtained. The current study utilizes one or more of the following dose-reduction techniques: automated exposure control, iterative reconstruction, and/or manual adjustment of tube current and voltage for size. FINDINGS: Thoracic spine: No evidence of acute fracture or traumatic malalignment. Spinal canal neural foramen are grossly patent. Mild to moderate multilevel degenerative changes. Lumbar spine: No evidence of acute fracture or traumatic malalignment. Moderate disc degeneration at L5-S1. Moderate to severe right L5-S1 neural foraminal stenosis. Moderate left L5-S1 neural foraminal stenosis. Moderate left L4-L5 neural foraminal stenosis. Spinal canal is grossly patent. CT/CT thoracic spine wo con IMPRESSION: No acute findings of the thoracolumbar spine. Moderate disc degeneration at L5-S1 with moderate to severe right and moderate left neural foraminal stenoses. Electronically authenticated by: TERESA STEPHENS Date: 05/09/2023 01:02
[2023-05-09] VITALS (17 sets, daily range): BP systolic 97–174; BP diastolic 56–90; PULSE 74–104; RESP 18–20; TEMP 36.6–37.2; O2SAT 92–98; BMI 52.4
[2023-05-09 00:25] LABS: Basophils Absolute Auto 0.1 10^3/uL (0.0-0.1); Basophils Percent Auto 0.6 % (0.2-2.0); Eosinophils Absolute Auto 0.1 10^3/uL (0.0-0.7); Eosinophils Percent Auto 1.5 % (0.9-7.0); Hematocrit 42.9 % (42.0-54.0); Hemoglobin 14.3 g/dL (14.0-18.0); Immature Granulocytes Abs Auto 0.02 10^3/uL (0.00-0.03); Immature Granulocytes Pct Auto 0.2 % (0.0-0.5); Lymphocytes Absolute Auto 3.2 10^3/uL (1.2-3.8); Lymphocytes Percent Auto 36.3 % (20.5-60.0); Mean Corpuscular HGB Conc 33.3 g/dL (29.9-35.2); Mean Corpuscular Hemoglobin 30.6 pg (25.9-34.0); Mean Corpuscular Volume 91.9 fL (80.0-94.0); Mean Platelet Volume 8.9 fL (9.5-13.5); Monocytes Absolute Auto 0.8 10^3/uL (0.3-0.8); Monocytes Percent Auto 8.8 % (1.7-12.0); Neutrophils Absolute Auto 4.6 10^3/uL (1.4-6.5); Neutrophils Percent Auto 52.6 % (43.0-75.0); Platelet Count 236 10^3/uL (150-450); Red Blood Count 4.67 10^6/uL (4.70-6.10); Red Cell Distribution Width 12.4 % (11.0-15.0); White Blood Count 8.8 10^3/uL (4.0-11.0)
[2023-05-09 00:32] LABS: Anion Gap 11.3; BUN Creatinine Ratio 12.5; Calcium 8.6 mg/dL (8.5-10.1); Carbon Dioxide 27.4 mmol/L (21.0-32.0); Chloride 106 mmol/L (98-107); Estimated GFR (African America >60 (>=60); Estimated GFR (Non-African Ame 51 (>=60); Glucose 119 mg/dL (74-106); Potassium 3.7 mmol/L (3.5-5.1); Sodium 141 mmol/L (136-145)
[2023-05-09 00:35] LABS: Erythrocyte Sedimentation Rate 23 mm/hr (<=20)
[2023-05-09 00:44] LABS: C Reactive Protein <0.50 mg/dL (<=0.50)
--- OUTSIDE RECORDS SUMMARY | 2023-05-09 02:24 | XMS_ITS | CCD ---
Author Name Unknown Address [address] [place] [address] Organization [facility] Care Team Providers Care Senior Trial Attorney Name Role Phone Vj Evans Primary Care Provider VJ EVANS Referring Unavailable VJ EVANS Primary [...] oral tablet (1 source) alpha-Adrenergic Agonist, Uncompetitive H-lametr-O-aspartat e Receptor Antagonist, Sigma-1 Agonist Start: 03-15-2023 take 4 tablets by mouth every twenty-four hours as needed Capmist DM 60-15-400 MG as needed Orally every 4-6 hours as needed, max 4 tablets in 24 hours for 5 days Feb, Active hydrocortisone 10 mg/ml / neomycin 3.5 mg/ml / polymyxin b [id number] unt/ml otic solution (1 source) Aminoglycoside Antibacterial, Polymyxin-class Antibacterial, Corticosteroid Start: 07-06-2021 Neomycin-Polymyxi n-HC 3.5-51027-0 4 drops into affected ear Otic Three [...] (COVID-19) RNA CARLOS+probe Ql (Unsp spec) Negative [facility] Other COVID/FLU RT-PCR Negative [email or web address] Other COVID Quick Testingon 2022 Result Positive [facility] Other Quick Strepon 12-19-2022 S. pyogenes Org specific cx Ql (Throat) Negative [facility] [employer] Other Quick Strep [facility] Other CBC AUTO DIFFon 09-10-2021 BASO # 0.1 103/ul Normal 0.0-0.1 [facility] Comment on above: Performed By: #### C BC #### [facility] [address] [place] [address] Dr. Taylor Obregon Basophils/100 WBC (Bld) 0.6 % Normal 0.2-2.0 [facility] Comment on above: Performed By: #### C BC #### [facility] [address] [place] [address] Dr. Taylor Obregon EO # 0.1 103/ul Normal 0.0-0.7 [facility] Comment on above: Performed By: #### C BC #### [facility] [address] [place] [address] Dr. Taylor Obregon Eosinophils/100 WBC (Bld) 1.3 % Normal 0.9-7.0 [facility] Comment on above: Performed By: #### C BC #### [facility] [address] [place] [address] Dr. Taylor Obregon Erythrocyte distribution width (RBC) [Ratio] 12.7 % Normal 11.0-15.0 [facility] Comment on above: Performed By: #### C BC #### [facility] [address] [place] [address] Dr. Taylor Obregon Hematocrit (Bld) [Volume fraction] 43.3 % Normal 42.0-54.0 [facility] Comment on above: Performed By: #### C BC #### [facility] [address] [place] [address] Dr. Taylor Obregon Hemoglobin (Bld) [Mass/Vol] 14.5 g/dL Normal 14.0-18.0 [facility] Comment on above: Performed By: #### C BC #### [facility] [address] [place] [address] Dr. Taylor Obregon IG # 0.01 10e3/ul Normal 0.00-0.03 [facility] Comment on above: Performed By: #### C BC #### [facility] [address] [place] [address] Dr. Taylor Obregon IG % 0.1 % Normal 0.0-0.5 [facility] Comment on above: Performed By: #### C BC #### [facility] [address] [place] [address] Dr. Taylor Obregon LYMPH # 3.1 103/ul Normal 1.2-3.8 [facility] Comment on above: Performed By: #### C BC #### [facility] [address] [place] [address] Dr. Taylor Obregon Lymphocytes/100 WBC (Bld) 39.4 % Normal 20.5-60.0 [facility] Comment on above: Performed By: #### C BC #### [facility] [address] [place] [address] Dr. Taylor Obregon MANUAL DIFF REQ NO Normal [facility] Comment on above: Performed By: #### C BC #### [facility] [address] [place] [address] Dr. Taylor Obregon MCH (RBC) [Entitic mass] 30.2 pg Normal 25.9-34.0 [facility] Comment on above: Performed By: #### C BC #### [facility] [address] [place] [address] Dr. Taylor Obregon MCHC (RBC) [Mass/Vol] 33.5 g/dL Normal 29.9-35.2 [facility] Comment on above: Performed By: #### C BC #### [facility] [address] [place] [address] Dr. Taylor Obregon MCV (RBC) [Entitic vol] 90.2 fL Normal 80.0-94.0 [facility] Comment on above: Performed By: #### C BC #### [facility] [address] [place] [address] Dr. Taylor Obregon MONO # 0.6 103/ul Normal 0.3-0.8 [facility] Comment on above: Performed By: #### C BC #### [facility] [address] [place] [address] Dr. Taylor Obregon Monocytes/100 WBC (Bld) 7.2 % Normal 1.7-12.0 [facility] Comment on above: Performed By: #### C BC #### [facility] [address] [place] [address] Dr. Taylor Obregon NEUT # 4.1 103/ul Normal 1.4-6.5 [facility] Comment on above: Performed By: #### C BC #### [facility] [address] [place] [address] Dr. Taylor Obregon Neutrophils/100 WBC (Bld) 51.4 % Normal 43.0-75.0 [facility] Comment on above: Performed By: #### C BC #### [facility] [address] [place] [address] Dr. Taylor Obregon Platelet mean volume (Bld) [Entitic vol] 9.5 fL Normal 9.5-13.5 [facility] Comment on above: Performed By: #### C BC #### [facility] [address] [place] [address] Dr. Taylor Obregon PLT 249 103/ul Normal 150-450 [facility] Comment on above: Performed By: #### C BC #### [facility] [address] [place] [address] Dr. Taylor Obregon RBC 4.80 106/ul Normal 4.70-6.10 [facility] Comment on above: Performed By: #### C BC #### [facility] [address] [place] [address] Dr. Taylor Obregon WBC 7.9 103/ul Normal 4.0-11.0 [facility] Comment on above: Performed By: #### C BC #### [facility] [address] [place] [address] Dr. Taylor Obregon GLYCOHEMOGLOBIN A1Con 2021 ADA RECOMMENDATION SEE BELOW Normal [facility] Comment on above: Result Comment: ADA RECOMMENDED LIMIT 4.0 - 6.0 ADA THERAPEUTIC TARGET < 7.0 ACTION SUGGESTED > 7.0 Performed By: #### A 1C #### [facility] [address] [place] [address] Dr. Taylor Obregon Glucose [Mass/Vol] 140 mg/dL Normal [facility] Comment on above: Performed By: #### A 1C #### [facility] [address] [address] [address] Taylor Obregon HbA1c (Bld) [Mass fraction] 6.5 % Critically high 4.5-6.2 [facility] Comment on above: Performed By: #### A 1C #### [facility] [address] [place] [address] Dr. Taylor Obregon LIPID PROFILEon 09-10-2021 CHOL-HDL RATIO NORM SEE BELOW Normal [facility] Comment on above: Result Comment: 3.3 - 4.4 LOW RISK 4.4 - 7.1 AVERAGE RISK 7.1 - 11.0 MODERATE RISK >11.0 HIGH RISK Performed By: #### L IPID, CMP #### [facility] [address] [place] [address] Dr. Taylor Obregon Cholesterol [Mass/Vol] 176 mg/dL Normal <=200 [facility] Comment on above: Performed By: #### L IPID, CMP #### [facility] [address] [place] [address] Dr. Taylor Obregon Cholesterol in HDL [Mass/Vol] 40 mg/dL Normal 40-60 [facility] Comment on above: Performed By: #### L IPID, CMP #### [facility] [address] [place] [address] Dr. Taylor Obregon Cholesterol in LDL [Mass/Vol] 116.4 mg/dL Normal [facility] Comment on above: Performed By: #### L IPID, CMP #### [facility] [address] [place] [address] Dr. Taylor Obregon Cholesterol.total/Ch olesterol in HDL [Mass ratio] 4.4 {ratio} Normal [facility] Comment on above: Performed By: #### L IPID, CMP #### [facility] [address] [address] [address] Taylor Obregon HDL NORMAL > or = 60 mg/dl - LOW CARDIOVASCULAR RISK <40 mg/dl - HIGH CARDIOVASCULAR RISK Normal [facility] Comment on above: Performed By: #### L IPID, CMP #### [facility] [address] [address] [address] Taylor Obregon LDL CALC NORMAL SEE BELOW Normal [facility] Comment on above: Result Comment: <100 mg/dl OPTIMAL 100 - 129 mg/dl NEAR OR ABOVE OPTIMAL 130 - 159 mg/dl BORDERLINE HIGH 160 - 189 mg/dl HIGH >190 mg/dl VERY HIGH Performed By: #### L IPID, CMP #### [facility] [address] [place] [address] Dr. Taylor Obregon Triglyceride [Mass/Vol] 98 mg/dL Normal <=150 [facility] Comment on above: Performed By: #### L IPID, CMP #### [facility] [address] [address] [address] Taylor Obregon VLDL CALC 19.6 mg/dL Normal [facility] Comment on above: Performed By: #### L IPID, CMP #### [facility] [address] [place] [address] Dr. Taylor Obregon PROF 14(COMP METB)on 022 Albumin [Mass/Vol] 4.0 g/dL Normal 3.4-5.0 [facility] Comment on above: Performed By: #### L IPID, CMP #### [facility] [address] [place] [address] Dr. Taylor Obregon Albumin/Globulin [Mass ratio] 1.1 {ratio} Normal [facility] Comment on above: Performed By: #### L IPID, CMP #### [facility] [address] [place] [address] Dr. Taylor Obregon ALP [Catalytic activity/Vol] 65 U/L Normal 46-116 [facility] Comment on above: Performed By: #### L IPID, CMP #### [facility] [address] [place] [address] Dr. Taylor Obregon ALT [Catalytic activity/Vol] 40 U/L Normal 16-63 [facility] Comment on above: Performed By: #### L IPID, CMP #### [facility] [address] [place] [address] Dr. Taylor Obregon Anion gap [Moles/Vol] 11.4 mmol/L Normal [facility] Comment on above: Performed By: #### L IPID, CMP #### [facility] [address] [place] [address] Dr. Taylor Obregon AST [Catalytic activity/Vol] 23 U/L Normal 15-37 [facility] Comment on above: Performed By: #### L IPID, CMP #### [facility] [address] [place] [address] Dr. Taylor Obregon Bilirubin [Mass/Vol] 0.5 mg/dL Normal 0.2-1.0 [facility] Comment on above: Performed By: #### L IPID, CMP #### [facility] [address] [place] [address] Dr. Taylor Obregon Calcium [Mass/Vol] 9.3 mg/dL Normal 8.5-10.1 [facility] Comment on above: Performed By: #### L IPID, CMP #### [facility] [address] [place] [address] Dr. Taylor Obregon Chloride [Moles/Vol] 103 mmol/L Normal 98-107 [facility] Comment on above: Performed By: #### L IPID, CMP #### [facility] [address] [place] [address] Dr. Taylor Obregon CO2 [Moles/Vol] 25.8 mmol/L Normal 21.0-32.0 [facility] Comment on above: Performed By: #### L IPID, CMP #### [facility] [address] [place] [address] Dr. Taylor Obregon Creatinine [Mass/Vol] 1.15 mg/dL Normal 0.70-1.30 [facility] Comment on above: Performed By: #### L IPID, CMP #### [facility] [address] [address] [address] Taylor Obregon EGFR-AF MONEGASQUE >60 Normal >=60 [facility] Comment on above: Performed By: #### L IPID, CMP #### [facility] [address] [address] [address] Taylor Obregon EGFR-NON AF MONEGASQUE >60 Normal >=60 [facility] Comment on above: Performed By: #### L IPID, CMP #### [facility] [address] [address] [address] Taylor Obregon Globulin (S) [Mass/Vol] 3.7 g/dL Normal [facility] Comment on above: Performed By: #### L IPID, CMP #### [facility] [address] [place] [address] Dr. Taylor Obregon Glucose [Mass/Vol] 115 mg/dL Critically high 74-106 [facility] Comment on above: Performed By: #### L IPID, CMP #### [facility] [address] [place] [address] Dr. Taylor Obregon Potassium [Moles/Vol] 4.2 mmol/L Normal 3.5-5.1 [facility] Comment on above: Performed By: #### L IPID, CMP #### [facility] [address] [place] [address] Dr. Taylor Obregon Protein [Mass/Vol] 7.7 g/dL Normal 6.4-8.2 [facility] Comment on above: Performed By: #### L IPID, CMP #### [facility] [address] [place] [address] Dr. Taylor Obregon Sodium [Moles/Vol] 136 mmol/L Normal 136-145 [facility] Comment on above: Performed By: #### L IPID, CMP #### [facility] [address] [place] [address] Dr. Taylor Obregon Urea nitrogen [Mass/Vol] 16.0 mg/dL Normal 7.0-18.0 [facility] Comment on above: Performed By: #### L IPID, CMP #### [facility] [address] [address] [address] Taylor Obregon Urea nitrogen/Creatinine [Mass ratio] 13.9 mg/mg Normal [facility] Comment on above: Performed By: #### L IPID, CMP #### [facility] [address] [address] KNEE LEFT WO [...] anterior tibial tubercle likely related to remote Shoshoni-Schlatter's disease. Osseous alignment is normal. No acute [...] Luis Leslie MD 12/14/19 Final result Normal [facility] Glucose, Fastingon 0 Glucose [Mass/Vol] 110 mg/dL High 70-99 [facility] Comment on above: Performed By: #### G LUF, LIPRF, PSAS #### [facility] [place] [address] Station Agent: Param Hancock MD Glucose [Mass/Vol] 110 mg/dL High 70 - 99 mg/dL [facility] [place] Lipid Prof, Fastingon 2019 Cholesterol [Mass/Vol] 173 mg/dL Normal <200 [facility] Comment on above: Result Comment: Cholesterol Guidelines: <200 Desirable 200-240 Borderline >240 Undesirable Performed By: #### G LUF, LIPRF, PSAS #### [employer] [address] [place] [address] [id number] Station Agent: Param Hancock MD Cholesterol in HDL [Mass/Vol] 37 mg/dL Low >40 [facility] Comment on above: Result Comment: HDL Guidelines: <40 Undesirable 40-59 Borderline >59 Desirable Performed By: #### G MARANDA, LIPRF, PSAS #### [employer] [address] [place] [id number] Station Agent: Param Hancock MD Cholesterol in LDL [Mass/Vol] 108 mg/dL Normal 0-130 [facility] Comment on above: Result Comment: LDL Guidelines: <100 Desirable 100-129 Near to/above Desirable 130-159 Borderline >159 Undesirable Direct (measured) LDL and calculated LDL are not interchangeable tests. Performed By: #### G KATERINAF, LIPRF, PSAS #### [employer] [address] [place] [id number] Station Agent: Param Hancock MD Cholesterol.total/Ch olesterol in HDL [Mass ratio] 4.7 {ratio} Normal <5 [facility] Comment on above: Performed By: #### G LUF, LIPRF, PSAS #### [employer] [address] [place] [address] Station Agent: Param Hancock MD Triglyceride,Fasting 139 mg/dL Normal <150 [facility] Comment on above: Result Comment: Triglyceride Guidelines: <150 Desirable 150-199 Borderline 200-499 High >499 Very high Based on AHA Guidelines for fasting triglyceride, January 2012. Performed By: #### G REJI LOW, PSAS #### [facility] [address] [place] [address] Station Agent: Param Hancock MD Cholesterol in VLDL [Mass/Vol] NOT REPORTED Normal 1-30 [facility] Comment on above: Performed By: #### G KATERINAF, LIPRF, PSAS #### [facility] [address] [place], [place] [id number] Station Agent: Param Hancock MD Lipid, Fastingon 10-12-2019 Cholesterol [Mass/Vol] 173 mg/dL <200 [place] Comment on above: Cholesterol Guidelines: <200 Desirable 200-240 Borderline >240 Undesirable Cholesterol in HDL [Mass/Vol] 37 mg/dL Low >40 [place] Comment on above: HDL Guidelines: <40 Undesirable 40-59 Borderline >59 Desirable Cholesterol in LDL [Mass/Vol] 108 mg/dL 0 - 130 mg/dL [place] Comment on above: LDL Guidelines: <100 Desirable 100-129 Near to/above Desirable 130-159 Borderline >159 Undesirable Direct (measured) LDL and calculated LDL are not interchangeable tests. Cholesterol in VLDL [Mass/Vol] NOT REPORTED 1 - 30 mg/dL [place] Cholesterol.total/Ch olesterol in HDL [Mass ratio] 4.7 {ratio} <5 [place] Triglyceride, Fasting 139 mg/dL <150 [place] Comment on above: Triglyceride Guidelines: <150 Desirable 150-199 Borderline 200-499 High >499 Very high Based on AHA Guidelines for fasting triglyceride, January 2012. Otheron 10-12-2019 Interpretation and review of laboratory results Abnormal [place], [place] PSA, Screeningon 10-12-2019 Prostatic Spec. Ag 1.34 ug/L Normal <4.1 [facility] Comment on above: Result Comment: The Kavin ECLIA assay is used. Results obtained with different assay methods cannot be used interchangeably. Performed By: #### G LUF, LIPRF, PSAS #### [facility] [address] [place] [address] Station Agent: Param Hancock MD Vital Signs Date Time Vital Sign Value Performing Clinician Facility 03-15-2023 17:20-0500 Body height 175.26 cm Patricia Flower Other [facility] Other 03-15-2023 17:20-0500 Body mass index (BMI) [Ratio] 41.43 kg/m2 Patricia Flower Other [facility] Other 03-15-2023 17:20-0500 Body temperature 99 [degF] Patricia Flower Other [facility] Other 03-15-2023 17:20-0500 Body weight 127.28 kg Patricia Flower Other [facility] Other 03-15-2023 17:20-0500 Diastolic blood pressure 71 mm[Hg] Patricia Flower Other [facility] Other 03-15-2023 17:20-0500 Respiratory rate 18 /min Patricia Flower Other [facility] Other 03-15-2023 17:20-0500 SaO2% (BldA) [Mass fraction] 95 % Patricia Flower Other [facility] Other 03-15-2023 17:20-0500 Systolic blood pressure 119 mm[Hg] Patricia Flower Other [facility] Other 12-19-2022 14:20-0400 Body height 175.26 cm Shandra Sánchez Other [facility] Other 12-19-2022 14:20-0400 Body mass index (BMI) [Ratio] 40.4 kg/m2 Shandra Sánchez Other [facility] Other 12-19-2022 14:20-0400 Body temperature 102 [degF] Shandra Sánchez Other [facility] Other 12-19-2022 14:20-0400 Body weight 124.1 kg Shandra Sánchez Other [facility] Other 12-19-2022 14:20-0400 Diastolic blood pressure 91 mm[Hg] Shandra Sánchez Other [facility] Other 12-19-2022 14:20-0400 Respiratory rate 20 /min Shandra Sánchez Other [facility] Other 12-19-2022 14:20-0400 SaO2% (BldA) [Mass fraction] 94 % Shandra Sánchez Other [facility] Other 12-19-2022 14:20-0400 Systolic blood pressure 124 mm[Hg] Shandra Sánchez Other [facility] Other 07-06-2021 16:30-0400 Body height 175.26 cm Beata Cuate Other [facility] Other 07-06-2021 16:30-0400 Body mass index (BMI) [Ratio] 40.61 kg/m2 Betaa Cuate Other [facility] Other 07-06-2021 16:30-0400 Body temperature 98.4 [degF] Beata Cuate Other [facility] Other 07-06-2021 16:30-0400 Body weight 124.74 kg Beata Cuello Other [facility] Other 07-06-2021 16:30-0400 Diastolic blood pressure 81 mm[Hg] Beata Cuello Other [facility] Other 07-06-2021 16:30-0400 Respiratory rate 20 /min Beata Cuello Other [facility] Other 07-06-2021 16:30-0400 SaO2% (BldA) [Mass fraction] 99 % Beata Cuello Other [facility] Other 07-06-2021 16:30-0400 Systolic blood pressure 122 mm[Hg] Beata Cuello Other [facility] Other Encounters Encounter Date Encounter Type Care Provider Facility Start: 04-28-2023 End: 04-28-2023 ambulatory SHAIKH PATRICK Not Available Start: 04-20-2023 End: 04-20-2023 ambulatory SHAIKH PATRICK Not Available Start: 03-15-2023 End: 03-15-2023 ambulatory Patricia Flower Other [facility] Other Start: 03-15-2023 Office outpatient vi sit 25 minutes Patricia Flower [facility] Start: 12-19-2022 End: 12-19-2022 ambulatory Shandra Sánchez Other [facility] Other Start: 12-19-2022 Office outpatient vi sit 15 minutes Shandra Sánchez [facility] Start: 06-10-2022 ambulatory SHAIKH Triston NGUYEN Facilit y:[facility]1 Start: 10-13-2021 ambulatory SHAIKH Triston NGUYEN Facilit y:[facility] Start: 09-17-2021 Encounter for genera l adult medical examination without abnormal findings SHAIKH Triston NGUYEN [facility] Start: 09-10-2021 End: 09-11-2021 ambulatory SHAIKH Triston NGUYEN Facility:[facility] Start: 09-10-2021 End: 09-11-2021 Encounter for general adult medical examination without abnormal findings SHAIKH Triston NGUYEN Facility:[facility]1 Start: 07-06-2021 End: 07-06-2021 ambulatory Beata Cuello Other [facility] Other Start: 07-06-2021 Office outpatient vi sit 25 minutes Beata Cuello [facility] Start: 12-14-2019 End: 12-17-2019 Patient encounter procedure VJ Holly [facility] Start: 10-12-2019 End: 10-13-2019 [facility] Start: 10-12-2019 End: 10-12-2019 Subsequent hospital visit by physician [facility]j [facility] Comment on above: Screening PSA [...] Influenza vaccination Flu vacc ine (Season Ended) [place], [place] Start: 2019 Screening for malign ant neoplasm of colon Colon cancer screen colonoscopy [place], [place] Start: 2019 Shingles Vaccine (1 of 2) Shingles Vaccine (1 of 2) [place], [place] Start: 2009 Lipid panel Lipid screen [place], [place] Start: 1988 DTaP/Tdap/Td vaccine (1 - Tdap) DTaP/Tdap/Td vaccine (1 - Tdap) [place], [place] Start: 1984 HIV screening HIV screen [place], [place] Immunizations Immunization Date Immunization Notes Care Provider Marty martinez 01-24-2016 tetanus toxoid, reduced diphtheria toxoid, and acellular pertussis vaccine, adsorbed Beata Cuello Other [facility] Other Payers Date Payer Category Payer Private Health Insurance [employer] A ETNA NAP CHOICE POS II xxxxxxxxxx 2019-Present [phone] [address] [place] [address] xxxxxxxxxx [id number] 1969 Unknown [id number] 1969 Unknown [id number] 1969 Unknown [id number] .[id number] 1969 Unknown [id number] .593 1969 Unknown [id number] .593 1969 Unknown [id number] .[id number] 1969 Unknown [id number] .[id number] 1959 Private Health Insurance [id number] 1960 Self-pay Private Health Insurance [id number] Social History Date Type Detail Facility Start: 10-12-2019 Tobacco smoking status NHIS Never smoker [place], [place] Start: 10-12-2019 Alcohol intake Ex-drinker (finding) [place] Sex Assigned At Not on file [place] Sex Assigned At Sex Assigned At Bir th [facility] Other Evaluation note 03-15-2023 Note Date & [...] treatment plan. Patient left in stable condition [facility] Other Evaluation note 12-19-2022 Note Date & [...] no improvement in 2 to 3 days [facility] Other Evaluation note 07-06-2021 Note Date & [...] no improvement of symptoms or symptom return [facility] Other History general Narrative - Reported Note Date & Type Note Facility History general Narrative - Reported Type Surgical History right leg plates inserted 2015 Surgical History wisdom teeth Surgical History vasectomy Hospitalization History see above [facility] Other History general Narrative - Reported Note Date & Type Note Facility History general Narrative - Reported Type Surgical History right leg plates inserted 2015 Surgical History wisdom teeth Surgical History vasectomy Surgical History leg knee surgery Hospitalization History see above [facility] Other Assessments Diagnosis Screening PSA (prostate specific antigen) Special screening for malignant neoplasm of prostate Screening for diabetes mellitus Encounter for lipid screening for cardiovascular disease Advance Directives No Advanced Directives Records FoundDocuments on File Type Date 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 Advance Directives and Living Will Power of Weight Recorder Summary Purpose Family History No Family History Records FoundNo Family History Records FoundNo Family History Records FoundNo Family History Records Found Additional Source Comments (unrecognized sect ion and content) No Status Records FoundNo Status Records FoundNo Status Records FoundNo Status Records Found INFORMATION SOURCE (unrecogn ized section and content) DATE CREATED AUTHOR 11/07/2019 [facility] DATE CREATED AUTHOR AUTHOR'S ORGANIZ ATION 12/17/2019 [facility] DATE CREATED AUTHOR AUTHOR'S ORGANIZ ATION 05/27/2022 [facility] DATE CREATED AUTHOR AUTHOR'S ORGANIZ ATION 04/30/2023 [facility] EPIC REASON FOR VISIT (unrecogniz ed [...] BE BASED ON THE PRIMARY CLINICAL RECORDS. [facility]. provides no warranty or guarantee of the accuracy or completeness of information in this document.
--- NOTE | 2023-05-09 02:35 | MR_ITS ---
The [address] [address] Patient Name: MARIE DOMINIQUE MRN: [id number] date: 1970 Sex: M Assigned Patient Location: MS Current Patient Location: MS Accession/Order Number: [id number] Exam Date: 05/09/2023 09:45 Report Date: 05/09/2023 10:55 At the request of: HOMAR LLAMAS Procedure: MR cervical spine wo con HISTORY: Weakness in the arms with loss of strength. MR cervical spine wo con: 05/09/2023 9:45 AM EST COMPARISON: CT scan cervical spine 05/09/2023. TECHNIQUE: Sagittal T1, T2, STIR, axial T2, and T2 gradient echo images of the cervical spine were obtained. FINDINGS: There is moderate to severe discogenic disease again seen at the C6-C7 level and mild discogenic disease at the C5-C6 level. No fracture or subluxation is seen. The bone marrow signal intensity appears age appropriate. The craniovertebral junction appears grossly within normal limits. There is mild congenital/developmental spinal canal stenosis at the C3-C4 through the C6-C7 level secondary to short pedicles. C2-C3 level: No significant disc protrusion, spinal canal stenosis, or foraminal narrowing is seen. C3-C4 level: There is a small central disc protrusion contributing to mild spinal canal stenosis. No foraminal narrowing is seen. C4-C5 level: There is a small central/right paracentral disc protrusion causing moderate spinal canal stenosis with effacement of the thecal sac anteriorly and posteriorly. Uncovertebral arthropathy on the right appears to cause moderate to severe right foraminal narrowing. There is no left foraminal narrowing. C5-C6 level: There is a large broad-based central/bilateral paracentral disc extrusion with cranial and caudal migration of approximately 5 mm. This causes severe spinal canal stenosis with severe compression of the AP dimension of the cervical spinal cord to approximately 3 mm in the AP dimension. Uncovertebral arthropathy appears to cause moderate to severe bilateral foraminal narrowing. C6-C7 level: There is a posterior disc-osteophyte complex again seen and this causes moderate to severe spinal canal stenosis with mild flattening of the AP dimension of the spinal cord. Uncovertebral arthropathy appears to cause moderate to severe right and moderate left foraminal narrowing. C7-T1 level: There is moderate to severe bilateral facet joint arthropathy and there appears to be mild bilateral foraminal narrowing. No central spinal canal stenosis. The signal intensity of the cervical spinal cord appears grossly within normal limits. MR/MR cervical spine wo con IMPRESSION: 1. There are varying degrees of spinal canal stenosis at the C3-C4 through the C6-C7 level secondary to a combination of congenital/developmental spinal canal stenosis and other factors described above. This spinal canal stenosis is most severe at the C5-C6 level where there is a large broad-based central/bilateral paracentral disc extrusion causing severe compression of the spinal cord. However, the signal intensity of the cervical spinal cord appears grossly within normal limits. 2. There is multilevel foraminal narrowing at the C4-C5 through the C6-C7 level secondary to uncovertebral arthropathy. 3. There is mild bilateral foraminal narrowing at the C7-T1 level secondary to moderate to severe facet joint arthropathy. 4. Discogenic disease at the C5-C6 and C6-C7 levels. I discussed the critical findings of this case with the referring clinician, Dr. Negrito Cash, at 10:53 AM on 05/09/2023 shortly after the study was presented for interpretation. Electronically authenticated by: MUNDO PITTS Date: 05/09/2023 10:55
[2023-05-09 04:35] LABS: Basophils Absolute Auto 0.1 10^3/uL (0.0-0.1); Basophils Percent Auto 0.5 % (0.2-2.0); Eosinophils Absolute Auto 0.1 10^3/uL (0.0-0.7); Eosinophils Percent Auto 1.1 % (0.9-7.0); Hematocrit 41.5 % (42.0-54.0); Immature Granulocytes Abs Auto 0.02 10^3/uL (0.00-0.03); Immature Granulocytes Pct Auto 0.2 % (0.0-0.5); Lymphocytes Absolute Auto 3.2 10^3/uL (1.2-3.8); Lymphocytes Percent Auto 32.2 % (20.5-60.0); Mean Corpuscular HGB Conc 33.7 g/dL (29.9-35.2); Mean Corpuscular Hemoglobin 30.2 pg (25.9-34.0); Mean Corpuscular Volume 89.4 fL (80.0-94.0); Monocytes Absolute Auto 0.8 10^3/uL (0.3-0.8); Monocytes Percent Auto 7.7 % (1.7-12.0); Neutrophils Absolute Auto 5.8 10^3/uL (1.4-6.5); Neutrophils Percent Auto 58.3 % (43.0-75.0); Platelet Count 230 10^3/uL (150-450); Red Blood Count 4.64 10^6/uL (4.70-6.10); Red Cell Distribution Width 12.2 % (11.0-15.0); White Blood Count 9.9 10^3/uL (4.0-11.0)
[2023-05-09 04:52] LABS: Alanine Aminotransferase 35 U/L (16-63); Albumin Globulin Ratio 0.9; Albumin Level 3.4 g/dL (3.4-5.0); Alkaline Phosphatase 55 U/L (46-116); Anion Gap 12.5; Aspartate Amino Transferase 19 U/L (15-37); BUN Creatinine Ratio 18.2; Bilirubin Total 0.5 mg/dL (0.2-1.0); Calcium 8.6 mg/dL (8.5-10.1); Carbon Dioxide 27.2 mmol/L (21.0-32.0); Chloride 105 mmol/L (98-107); Estimated GFR (African America >60 (>=60); Estimated GFR (Non-African Ame >60 (>=60); Globulin 3.6 g/dL; Glucose 118 mg/dL (74-106); Potassium 3.7 mmol/L (3.5-5.1); Sodium 141 mmol/L (136-145)
[2023-05-09] MEDS: ENOXAPARIN SODIUM 40 MG/0.4 ML SYRINGE SUBQ (08:22)
--- NOTE | 2023-05-09 10:04 | CM.NOTE ---
Rounds made with Dr. Cash, pt will have MRI today and possible discharge to home this afternoon.
[2023-05-09] MEDS: METHYLPREDNISOLONE SOD SUCC PF 125 MG/2 ML VIAL 60 MG IVP ×3 (10:33→21:17)
[2023-05-09] MEDS: GABAPENTIN 300 MG CAPSULE PO ×2 (10:39→21:17)
[2023-05-09] MEDS: BACLOFEN 10 MG TABLET PO ×2 (10:39→21:17)
[2023-05-09] MEDS: MELOXICAM 7.5 MG TABLET 15 MG PO (10:44)
--- NOTE | 2023-05-09 10:48 | PM.HP ---
H&P: HPI History of Present Illness Chief complaint: BACK PAIN/ LEG WEAKNESS Narrative: 53 y/o male to ER with weakness in legs and numbness in hands. C/o neck pain and numbness in hands for several weeks. Seen by PCP and steroids helped pain. X-ray with cervical spondylosis. Started PT but radicular symptoms worsened. Continued numbness in hands and now weak hand slitter. Several days ago patient had problems using tongs. Developed increased weakness in legs and hard to lift. Day admission standing and left leg gave out causing patient to fall. To ER and CT cervical and lumbar spine with narrowing and arthritis changes. Thoracic spine normal. Continued pain and weakness and admitted. No loss of bowel or bladder control. Review of Systems ROS Constitutional Denies: fever, chills or fatigue Cardiovascular Denies: chest pain, palpitations or edema Respiratory Denies: shortness of breath, cough or wheezing Gastrointestinal Denies: abdominal pain, nausea, vomiting or diarrhea Genitourinary Denies: painful urination Musculoskeletal Reports: back pain, neck pain and muscle weakness Neurological Reports: numbness in extremities and weakness in extremities [facility] Medical History (Updated 05/09/23 @ 12:30 by Ruddy Cash MD) Fall ?W19.XXXA - Unspecified fall, initial encounter (ICD-10) Degenerative tear of left medial meniscus ?M23.204 - Derangement of unspecified medial meniscus due to old tear or injury, left knee (ICD-10) Right leg injury ?S89.91XA - Unspecified injury of right lower leg, initial encounter (ICD-10) Weakness ?R53.1 - Weakness (ICD-10) Numbness ?R20.0 - Anesthesia of skin (ICD-10) Back pain ?M54.9 - Dorsalgia, unspecified (ICD-10) Surgical History (Updated 05/09/23 @ 02:31 by Anuja Walsh) H/O: vasectomy ?Z98.52 - Vasectomy status (ICD-10) Family History (Updated 05/09/23 @ 02:31 by Anuja Walsh) Mother Family history of diabetes mellitus Social History (Updated 05/09/23 @ 02:32 by Anuja Walsh) Within the past year, how often did you have a drink containing alcohol: never Score interpretation: A score less than 4 is consistent with normal alcohol consumption. 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 Highest level of school completed/degree received: Associate degree: academic program Are you now , , , , never or living with a partner: In a typical week, how many times do you talk on the telephone with family, friends, or neighbors: 3 or more times per week How often do you get together with friends or relatives: 3 or more times per week How often do you attend mandaeism or confucianist services: never Do you belong to any clubs or organizations such as mandaeism groups unions, [employer] or athletic groups, or school groups: no Total score: 2 Score interpretation: A score of greater than or equal to 2 indicates the lowest level of social isolation. Little interest or pleasure in doing things: not at all Feeling down, depressed, or hopeless: not at all Feel stressed/tense/nervous/anxious/difficulty sleeping: not at all Do you think of yourself as: straight/heterosexual Gender Identity: male Meds Home Medications and Allergies Home Medications Medication Instructions Recorded Confirmed Type baclofen 10 mg tablet 10 mg PO BID 05/09/23 05/09/23 History gabapentin 300 mg capsule 300 mg PO BID 05/09/23 05/09/23 History meloxicam 15 mg tablet 15 mg PO DAILY 05/09/23 05/09/23 History semaglutide 0.25 mg or 0.5 mg (2 0.25 mg subcut QWEEK 05/09/23 05/09/23 History mg/1.5 mL) subcutaneous pen injector Allergies Allergy/AdvReac Type Severity Reaction Status Date / Time No Known Drug Allergies Allergy Verified 05/08/23 23:37 Exam Constitutional Vital Signs, click to edit/add: Last Vital Signs Temp 97.8 F 05/09/23 06:00 Pulse 75 05/09/23 06:00 Resp 18 05/09/23 06:00 BP 118/72 05/09/23 06:00 Pulse Ox 96 05/09/23 06:00 O2 Del Method Room Air 05/09/23 06:00 Documenting provider has reviewed patient's vital signs: yes Common normals: oriented x3 and alert HENMT Common normals: normocephalic Eye Common normals: PERRL and EOMs intact bilaterally Respiratory Common normals: normal respiratory effort and clear to auscultation bilaterally Cardio Common normals: regular rate, regular rhythm, no gallops, no murmurs and no rub GI Common normals: Normal to inspection, nondistended, normoactive bowel sounds present and non-tender Extremity Common normals: no pedal edema Results Labs Labs: Short CBC 05/09/23 05/09/23 Range/Units 00:05 04:05 WBC 8.8 9.9 (4.0-11.0) 10^3/uL Hgb 14.3 14.0 (14.0-18.0) g/dL Hct 42.9 41.5 L (42.0-54.0) % Plt Count 236 230 (150-450) 10^3/uL BMP 05/09/23 05/09/23 00:05 04:05 Sodium 141 141 Potassium 3.7 3.7 Chloride 106 105 Carbon Dioxide 27.4 27.2 BUN 18.0 22.0 H Creatinine 1.44 H 1.21 Glucose 119 H 118 H Calcium 8.6 8.6 Liver Function 05/09/23 Range/Units 04:05 Total Bilirubin 0.5 (0.2-1.0) mg/dL AST 19 (15-37) U/L ALT 35 (16-63) U/L Alkaline Phosphatase 55 (46-116) U/L Albumin 3.4 (3.4-5.0) g/dL Assessment and Plan Assessment and Plan (1) 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 Start solu-medrol for inflammation. MRI cervical spine showed disc herniation at C5/C6 with severe compression of spinal cord. Findings discussed with radiology and recommended urgent evaluation by neurosurgery. Contacted neurosurgeon at [facility] and recommended transfer. Spoke to hospitalist and accepted for transfer.
--- NOTE | 2023-05-09 21:43 | PC.NURSE ---
[facility] transfer line contacted regarding update on bed. Pt will not have a bed available until probably tomorrow afternoon, discharge dependent. Transfer line wants updated if any change in condition
[2023-05-10] MEDS: METHYLPREDNISOLONE SOD SUCC PF 125 MG/2 ML VIAL 60 MG IVP ×3 (04:16→15:01)
[2023-05-10 04:19] VITALS: BP 149/68; PULSE 98; RESP 18; TEMP 36.6; O2SAT 94
[2023-05-10 05:32] LABS: Basophils Percent Auto 0.1 % (0.2-2.0); Hematocrit 44.1 % (42.0-54.0); Hemoglobin 14.9 g/dL (14.0-18.0); Immature Granulocytes Abs Auto 0.06 10^3/uL (0.00-0.03); Immature Granulocytes Pct Auto 0.4 % (0.0-0.5); Lymphocytes Absolute Auto 1.6 10^3/uL (1.2-3.8); Lymphocytes Percent Auto 10.8 % (20.5-60.0); Mean Corpuscular HGB Conc 33.8 g/dL (29.9-35.2); Mean Corpuscular Hemoglobin 29.9 pg (25.9-34.0); Mean Corpuscular Volume 88.6 fL (80.0-94.0); Mean Platelet Volume 9.3 fL (9.5-13.5); Monocytes Absolute Auto 0.4 10^3/uL (0.3-0.8); Monocytes Percent Auto 2.5 % (1.7-12.0); Neutrophils Absolute Auto 12.7 10^3/uL (1.4-6.5); Neutrophils Percent Auto 86.2 % (43.0-75.0); Platelet Count 284 10^3/uL (150-450); Red Blood Count 4.98 10^6/uL (4.70-6.10); White Blood Count 14.7 10^3/uL (4.0-11.0)
[2023-05-10 05:56] LABS: Alanine Aminotransferase 32 U/L (16-63); Albumin Globulin Ratio 0.8; Albumin Level 3.4 g/dL (3.4-5.0); Alkaline Phosphatase 62 U/L (46-116); Anion Gap 13.1; Aspartate Amino Transferase 12 U/L (15-37); BUN Creatinine Ratio 14.7; Bilirubin Total 0.4 mg/dL (0.2-1.0); Calcium 9.3 mg/dL (8.5-10.1); Carbon Dioxide 22.8 mmol/L (21.0-32.0); Chloride 106 mmol/L (98-107); Estimated GFR (African America 59 (>=60); Estimated GFR (Non-African Ame 49 (>=60); Globulin 4.2 g/dL; Glucose 255 mg/dL (74-106); Potassium 3.9 mmol/L (3.5-5.1); Sodium 138 mmol/L (136-145); Total Protein 7.6 g/dL (6.4-8.2)
[2023-05-10] MEDS: GABAPENTIN 300 MG CAPSULE PO (09:16)
[2023-05-10] MEDS: BACLOFEN 10 MG TABLET PO (09:16)
--- NOTE | 2023-05-10 11:25 | CM.NOTE ---
Rounds made with Dr. Cash, pt awaiting transport to [facility].
[2023-05-10 13:13] VITALS: BP 125/85; PULSE 98; TEMP 36.6; O2SAT 98
[2023-05-10 16:11] VITALS: BMI 38.5
[2023-05-10 20:18] VITALS: BP 169/75; PULSE 100; RESP 18; TEMP 36.4; O2SAT 98
--- NOTE | 2023-05-10 20:50 | P.DS_ITS ---
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 53 y/o male to ER with weakness in legs and numbness in hands. C/o neck pain and numbness in hands for several weeks. Seen by PCP and steroids helped pain. X-ray with cervical spo ndylosis. Started PT but radicular symptoms worsened. 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 Several days ago patient had problems using tongs. Developed increased weakness in legs and hard to lift. Day admission standing and left leg gave out causing patient to fall. To ER and CT cervical and lumbar spine with narrowing and arthritis changes. Thoracic spine normal. Continued pain and weakness and admitted after failing outpatient treatment. Hospital course: MRI cervical spine ordered and started IV steroids. Discussed case with PT who was seeing as outpatient. Patient having hard time ambulating with a walker due to severe weakness in legs. Therapy concerned with quick progression of weakness and worsening radicular symptoms that suggested nerve involvement. Continued to have numbness and weakness but no loss of bowel or bladder control. MRI performed and received a call from radiologist to discuss results. MRI showed C5/C6 disc herniation with cord compression requiring urgent intervention. Contacted [facility] and discussed with neurosurgeon combination machine tool setter who also felt presentation consistent with cord compression and recommended transfer. Discussed with hospitalist who accepted patient for admission but no bed available. Pain and weakness in legs improved with steroids but continued numbness in hands. Bed available and patient transferred to [facility] in stable condition for further treatment. Time Spent with Patient Time attestation: Total time spent providing and/or coordinating discharge services: Exam Constitutional Vital Signs, click to edit/add: Last Vital Signs Temp 97.5 F L 05/10/23 20:18 Pulse 100 H 05/10/23 20:18 Resp 18 05/10/23 20:18 BP 169/75 H 05/10/23 20:18 Pulse Ox 98 05/10/23 20:18 O2 Del Method Room Air 05/10/23 20:18 Documenting provider has reviewed patient's vital signs: yes Common normals: no apparent distress, oriented x3 and alert HENMT Common normals: normocephalic Eye Common normals: PERRL and EOMs intact bilaterally Respiratory Common normals: normal respiratory effort and clear to auscultation bilaterally Cardio Common normals: regular rate, regular rhythm, no gallops, no murmurs and no rub GI Common normals: Normal to inspection, nondistended, normoactive bowel sounds present and non-tender Extremity Common normals: no pedal edema DS: Data Data Completed and Pending Labs on day of discharge: Labs from last 24 hours 05/10/23 04:33 WBC 14.7 H RBC 4.98 Hgb 14.9 Hct 44.1 MCV 88.6 MCH 29.9 MCHC 33.8 RDW 12.0 Plt Count 284 MPV 9.3 L Neut % (Auto) 86.2 H Lymph % (Auto) 10.8 L Mcminn % (Auto) 2.5 Eos % (Auto) 0.0 L Baso % (Auto) 0.1 L Neut # (Auto) 12.7 H Lymph # (Auto) 1.6 Mcminn # (Auto) 0.4 Eos # (Auto) 0.0 Baso # (Auto) 0.0 Abs Immat Gran (auto) 0.06 H Imm/Tot Granulo (auto) 0.4 Sodium 138 Potassium 3.9 Chloride 106 Carbon Dioxide 22.8 Anion Gap 13.1 BUN 22.0 H Creatinine 1.50 H Est GFR ( Amer) 59 L Est GFR (Non-Af Amer) 49 L BUN/Creatinine Ratio 14.7 Glucose 255 H Calcium 9.3 Total Bilirubin 0.4 AST 12 L ALT 32 Alkaline Phosphatase 62 Total Protein 7.6 Albumin 3.4 Globulin 4.2 Albumin/Globulin Ratio 0.8 Discharge Plan Discharge Disposition: [facility] Condition: Good Discharge Date/Time: 05/10/23 20:45 Discharge Location: [facility]
== END 2023-05-10 20:45 | disposition short-term general hospital (02) | DRG 552 ==
LOC: ER 05-09 02:02 → MS 05-09 02:22
PROVIDERS: Nurse Practitioner Acute Care; Admitting Provider Family Medicine; Emergency Provider Internal Medicine; PCP Internal Medicine; Visit Provider Family Medicine
DX: M50.022 Cervical disc disorder at C5-C6 level with myelopathy (principal); M47.12 Other spondylosis with myelopathy, cervical region; M48.02 Spinal stenosis, cervical region; M48.061 Spinal stenosis, lumbar region without neurogenic claudication; R20.2 Paresthesia of skin; E11.65 Type 2 diabetes mellitus with hyperglycemia; G47.33 Obstructive sleep apnea (adult) (pediatric); E66.01 Morbid (severe) obesity due to excess calories; Z98.52 Vasectomy status; Z83.3 Family history of diabetes mellitus; Z91.81 History of falling; Z68.38 Body mass index [BMI] 38.0-38.9, adult; Z79.85 Long-term (current) use of injectable non-insulin antidiabetic drugs
CPT/HCPCS: 36415; 70450; 72125; 72128; 72131; 72141; 80048; 80053; 85025; 85652; 86140; 96372; 96374; 96376; 99285; J1650; J2930

== ENCOUNTER 2024-07-16 12:49 | Outpatient (OUT) | payer OTHER, SELFPAY ==
--- NOTE | 2024-07-16 12:59 | ECG_ITS ---
The [facility] Test Date: 2024-07-16 Pat Name: MARIE DOMINIQUE Department: Room: - Gender: Male [employer]: : 1970 Requested By: ARELY BA Order Number: [id number] Reading MD: HOMAR LEHMAN M.D. Measurements Intervals [place] Rate: 69 P: 42 CT: 166 QRS: 46 QRSD: 89 T: 56 QT: 375 QTc: 404 Interpretive Statements SINUS RHYTHM Normal ECG No previous ECG available for comparison Electronically Signed On 07-16-2024 20:29:21 EDT by HOMAR LEHMAN M.D.
--- NOTE | 2024-07-16 13:26 | XR_ITS ---
[address] [address] Patient Name: MARIE DOMINIQUE MRN: [id number] date: 1970 Sex: M Assigned Patient Location: LAB Current Patient Location: LAB Accession/Order Number: [id number] Exam Date: 07/16/2024 14:46 Report Date: 07/16/2024 14:48 At the request of: ARELY BA NP Procedure: XR lumbar spine 2-3V 2 views Lumbar Spine HISTORY: Chronic back pain COMPARISON: None POSTSURGICAL CHANGES: None BONY ALIGNMENT: Adequate HYPERMOBILITY:No bending imaging. LISTHESIS:None FRACTURE: None DEGENERATIVE CHANGES: Moderate L5-S1 disc space narrowing with endplate spurring. Moderate retrolisthesis at the L5-S1 level. Lower lumbar facet degeneration. SOFT TISSUES: Unremarkable BONY MINERALIZATION:Adequate XR/XR lumbar spine 2-3V IMPRESSION: Extensive L5-S1 degeneration. Impression dictated by: Aubrey Marie M.D.07/16/2024 2:48 PM Dictation Location: [employer] Electronically authenticated by: [id number] Y Date: 07/16/2024 14:48
--- NOTE | 2024-07-16 13:26 | XR_ITS ---
The [address] [address] Patient Name: MARIE DOMINIQUE MRN: [id number] date: 1970 Sex: M Assigned Patient Location: LAB Current Patient Location: LAB Accession/Order Number: [id number] Exam Date: 07/16/2024 14:48 Report Date: 07/16/2024 14:50 At the request of: ARELY BA NP Procedure: XR thoracic spine 3V 3 views of thoracic spine COMPARISON: 05/09/2023 HISTORY: Chronic chest pain. The thoracic kyphosis is adequate. The disc spaces are maintained. Similar multilevel thoracic spondylosis/hyperostosis. No compression deformity identified The bony mineralization is adequate. No paraspinal abnormality seen. Postsurgical changes of the lower cervical spine. XR/XR thoracic spine 3V IMPRESSION: Similar multilevel thoracic hyperostosis/spondylosis. No acute findings. Impression dictated by: Aubrey Marie M.D.07/16/2024 2:50 PM Dictation Location: [employer] Electronically authenticated by: [id number] Y Date: 07/16/2024 14:50
[2024-07-16 13:47] LABS: Basophils Absolute Auto 0.1 10^3/uL (0.0-0.1); Basophils Percent Auto 0.7 % (0.2-2.0); Eosinophils Absolute Auto 0.1 10^3/uL (0.0-0.7); Eosinophils Percent Auto 1.1 % (0.9-7.0); Hematocrit 45.4 % (42.0-54.0); Hemoglobin 15.9 g/dL (14.0-18.0); Immature Granulocytes Abs Auto 0.02 10^3/uL (0.00-0.03); Immature Granulocytes Pct Auto 0.2 % (0.0-0.5); Lymphocytes Absolute Auto 3.1 10^3/uL (1.2-3.8); Mean Corpuscular Hemoglobin 30.7 pg (25.9-34.0); Mean Corpuscular Volume 87.6 fL (80.0-94.0); Mean Platelet Volume 8.7 fL (9.5-13.5); Monocytes Absolute Auto 0.7 10^3/uL (0.3-0.8); Monocytes Percent Auto 7.2 % (1.7-12.0); Neutrophils Absolute Auto 5.2 10^3/uL (1.4-6.5); Neutrophils Percent Auto 56.8 % (43.0-75.0); Platelet Count 267 10^3/uL (150-450); Red Blood Count 5.18 10^6/uL (4.70-6.10); Red Cell Distribution Width 12.4 % (11.0-15.0); White Blood Count 9.1 10^3/uL (4.0-11.0)
[2024-07-16 13:51] LABS: Bilirubin Urine NEGATIVE (NEGATIVE); Blood Urine TRACE-I (NEGATIVE); Clarity Urine CLEAR (CLEAR); Color Urine YELLOW (YELLOW); Glucose Urine UA NEGATIVE (NEGATIVE); Ketones Urine NEGATIVE (NEGATIVE); Leukocyte Esterase Urine NEGATIVE (NEGATIVE); Nitrite Urine NEGATIVE (NEGATIVE); Protein Urine NEGATIVE (NEG/TRACE); Specific Gravity Urine 1.025 (1.005-1.025); Urobilinogen Urine 0.2 EU/dL (0.2-1.0)
[2024-07-16 13:53] LABS: Urine Microscopic Indicated YES
[2024-07-16 14:00] LABS: Creatinine Urine Random 248.54 mg/dL (20.00-300.00); Microalbumin Urine Random 1.5 mg/dL (<=30.0)
[2024-07-16 14:01] LABS: Alanine Aminotransferase 36 U/L (16-63); Albumin Globulin Ratio 1.1; Alkaline Phosphatase 80 U/L (46-116); Anion Gap 15.4; Aspartate Amino Transferase 24 U/L (15-37); BUN Creatinine Ratio 10.8; Bilirubin Total 0.7 mg/dL (0.2-1.0); Calcium 9.2 mg/dL (8.5-10.1); Carbon Dioxide 25.8 mmol/L (21.0-32.0); Chloride 103 mmol/L (98-107); Cholesterol 177 mg/dL (<=200); Estimated GFR (African America >60 (>=60 mL/min/1.73m^2); Estimated GFR (Non-African Ame >60 (>=60 mL/min/1.73m^2); Globulin 3.6 g/dL; Glucose 141 mg/dL (74-106); HDL Cholesterol 44 mg/dL (40-60); Potassium 4.2 mmol/L (3.5-5.1); Sodium 140 mmol/L (136-145); Total Protein 7.6 g/dL (6.4-8.2); Triglycerides 153 mg/dL (<=150); VLDL CHOLESTEROL 30.6 mg/dL
[2024-07-16 14:02] LABS: Bacteria Urine NONE SEEN #/HPF (NONE SEEN); Cast Seen? SEEN #/LPF (NONE SEEN); Crystals Seen? None Seen #/HPF (None Seen); Hyaline Casts Urine RARE; Mucus Urine NONE SEEN (NONE SEEN); Squamous Epithelial Cell Urine RARE #/LPF (NONE/RARE); Urine Culture Indicated NO; WBC Urine 0-2 #/HPF (NONE SEEN)
[2024-07-16 14:06] LABS: Estimated Average Glucose 160 mg/dL; Glycohemoglobin A1C 7.2 % (4.5-6.2)
== END 2024-07-16 12:50 | disposition home or self-care (01) ==
LOC: LAB 12:52
PROVIDERS: PCP Internal Medicine; Visit Provider Nurse Practitioner
DX: R07.9 Chest pain, unspecified (principal); G89.29 Other chronic pain; M54.50 Low back pain, unspecified; Z12.5 Encounter for screening for malignant neoplasm of prostate; E11.9 Type 2 diabetes mellitus without complications; E78.5 Hyperlipidemia, unspecified; M47.814 Spondylosis without myelopathy or radiculopathy, thoracic region; M51.369 Other intervertebral disc degeneration, lumbar region without mention of lumbar back pain or lower extremity pain
CPT/HCPCS: 36415; 72072; 72100; 80053; 80061; 81001; 82043; 82570; 83036; 85025; 93005

== ENCOUNTER 2025-01-14 15:33 | Outpatient (OUT) | payer OTHER, SELFPAY ==
--- OUTSIDE RECORDS SUMMARY | 2025-01-14 15:00 | XMS_ITS ---
Author Name Auto Generated Organization OHIP Support Name Relationship Address Phone Pamella Lang Next of Kin Unknown [phone] RENETTA LANG Next of Kin [address] [place] [address] [address] [place] [address] Unavailable RENETTA LANG Next of Kin [address] [place] [address] [address] [place] [address] Unavailable RENETTA LANG Next of Kin [address] [place] [address] [address] [place] [address] Unavailable RENETTA LANG Next of Kin [address] [place] [address] [address] [place] [address] Unavailable RENETTA LANG Next of Kin [address] [place] [address] [address] [place] [address] Unavailable RENETTA LANG Next of Kin [address] [place] [address] [address] [place] [address] Unavailable PAMELLA LANG Next of Kin Unknown [phone] RENETTA LANG Next of Kin [address] [place] [address] [address] [place] [address] Unavailable PAMELLA LANG Next of Kin Unknown [phone] Pamella Lang Next of Kin Unknown [phone] Pamella Lang Next of Kin Unknown [phone] PAMELLA LANG Next of Kin Unknown [phone] PAMELLA LANG Next of Kin Unknown [phone] Pamella Lang Next of Kin Unknown [phone] Pamella Lang Next of Kin Unknown [phone] RENETTA LANG Next of Kin [address] [place] [address] [address] [place] [address] Unavailable [place] [address] [phone] RENETTA LANG Next of Kin [facility] [address] [place] [address] Unavailable [place] [address] [phone] PAMELLA LANG Next of Kin Unknown [phone] Care Team Providers Care Zigzag Stitcher Name Role Phone ARELY BA Attending Unavailable ARELY BA Attending Unavailable CALIXTO, AALIYAH Attending Unavailabl e ARELY BA Attending Unavailable FAWWAD, PINEDA Referring Unavailable FAWWAD, PINEDA Primary Care Unavailable EGAN, DYAN Attending Unavailable EGAN, DYAN Referring Unavailable FAWWAD, PINEDA Primary Care Unavailable NAVEENHARELY CAMACHO Referring Unavailable FAWWAD, PINEDA Primary Care Unavailable EGAN, DYAN Referring Unavailable FAWWAD, PINEDA Primary Care Unavailable EGAN, DYAN Attending Unavailable FAWWAD, PINEDA Referring Unavailable FAWWAD, PINEDA Primary Care Unavailable VERMARY SANCHEZ Attending Unavailable EGAN, DYAN Referring Unavailable FAWWAD, PINEDA Primary Care Unavailable CASTRO, SALIMA E Admitting Unavailable CASTRO, SALIMA E Attending Unavailable EGAN, DYAN Referring Unavailable FAWWAD, PINEDA Primary Care Unavailable CASTRO, SALIMA E Attending Unavailable CASTRO, SALIMA E Referring Unavailable FAWWAD, PINEDA Primary Care Unavailable VERHOMARY GAUTHIER Attending Unavailable FAWWAD, PINEDA Referring Unavailable FAWWAD, PINEDA Primary Care Unavailable RadhaIsamar durna E Attending Unavailable Radha, Isamar E Admitting Unavailable NO FAMILY, PHYSICIAN Primary Care Unavailable RADHA, ISAMAR E Attending Unavailable CALIXTO, AALIYAH Primary Care Unavailabl e RADHA, ISAMAR E Admitting Unavailable RADHA, ISAMAR E Attending Unavailable CALIXTO, AALIYAH Primary Care Unavailabl e RADHA ISAMAR E Attending Unavailable CALIXTO, AALIYAH Primary Care Unavailabl e RADHA, ISAMAR E Attending Unavailable CALIXTO, AALIYAH Primary Care Unavailabl e RADHA ISAMAR E Attending Unavailable CALIXTO, AALIYAH Primary Care Unavailabl e PROBLEMS DATE TYPE CONDITION / CODE ATTENDING STATUS [facility] 11/23/2024 Unknown Lumbosacral spondylosis without myelopathy [721.3] / UNK(Unknown) SALIMA CASTRO [facility] 10/31/2024 Unknown Spondylosis with out myelopathy or radiculopathy, lumbosacral region / M47.817(ICD-10) [facility] 10/31/2024 Unknown Spondylosis with out myelopathy or radiculopathy, lumbar region / M47.816(ICD-10) MARY VEGAS [facility] 10/31/2024 Unknown Back Pain / FREETEXT(AOF) MARY VEGAS [facility] 10/22/2024 Unknown Spinal stenosis, lumbar region without neurogenic claudication / M48.061(ICD-10) JIGNESH [facility] 10/22/2024 Unknown Anesthesia of sk in / R20.0(ICD-10) HOLLY BLUFF [facility] 10/22/2024 Unknown Paresthesia of s kin / R20.2(ICD-10) HOLLY BLUFF [facility] 10/03/2024 Unknown Low back pain, unspecified / M54.50(ICD-10) [facility] 10/03/2024 Unknown Spondylolisthesi s, lumbosacral region / M43.17(ICD-10) [facility] 07/18/2024 Unknown Elevated prostat e specific antigen [PSA] / R97.20(ICD-10) Isamar Garcia [facility] 04/24/2024 Unknown Arthrodesis stat us / Z98.1(ICD-10) JIGNESH [facility] 04/24/2024 Unknown Follow-up / FREETEXT(AOF) JIGNESH [facility] PROCEDURES No Procedure Records Found RESULTS BEDSIDE GLUCOSE Collected: 11/23/2024 12:28 PM Status: COMPLETED Source: [facility] TYPE CODE TESTS RESULT OUT OF RANGE REFERENCE UNITS LAB BEDG BEDSIDE GLUCOSE BEDG 138 High 65-99 mg/dL Performed By: #### BEDG #### [facility]) [address] [place] [place] [address] VIR XR LUMBAR SPINE AP, LATERAL, FLEXION AND EXTENSION ONLY Observed: 10/22/2024 10:39 AM Status: COMPLETED Source: [facility] XR LUMBAR SPINE AP, LATERAL, FLEXION AND EXTENSION ONLY EXAM: XR LUMBAR SPINE AP, LATERAL, FLEXION AND EXTENSION ONLY CLINICAL INFORMATION: Low back pain, unspecified back pain laterality, unspecified chronicity, unspecified whether sciatica present. COMPARISON: None. FINDINGS: The lumbar spine maintains a normal lordotic curvature. Minimal 1 degenerative anterolisthesis of L4 on L5 and minimal degenerative retrolisthesis of L5 on S1 is stable in flexion and extension. There is no significant loss of the vertebral body heights. There is localized moderate L5-S1 degenerative disc disease. There is no radiographic evidence for an acute displaced fracture. IMPRESSION: 1. No evidence for an acute displaced fracture of the lumbar spine. 2. Minimal grade 1 degenerative anterolisthesis of L4 on L5 and minimal degenerative retrolisthesis of L5 on S1, stable in flexion and extension. Finalized by Stevie Callahan MD on 10/24/2024 11:48 PM MR LUMBAR SPINE WO CONT Observed: 2024 10:21 AM Status: COMPLETED Source: [facility] MR LUMBAR SPINE WO CONT MR LUMBAR SPINE WO CONT: 10/03/2024 PROVIDED HISTORY: * 54 years old Male * Lumbar back pain; Acquired spondylolisthesis of lumbosacral region COMPARISON: MRI lumbar spine 09/20/2023 TECHNIQUE: Multiplanar multisequence imaging of the lumbar spine was performed. Examination performed without the administration of intravenous contrast. Findings: The lumbar spine is visualized on sagittal imaging from the thoracolumbar junction through the sacrum with the lowest complete disc space labeled L5/S1. Mild lumbar lordosis straightening. Minimal retrolisthesis L5 on S1, favor degenerative. Vertebral body heights and facet joint alignment are relatively preserved. Edema along the left greater than right pedicles articular facets at L4 and L5, similar to prior, favor degenerative. No suspicious marrow signal abnormality. Disc height loss with desiccation which is moderate at L5-S1 and mild at L4-L5. Visualized spinal cord is within normal limits without signal abnormality. Conus medullaris terminates at L2. Cauda equina nerve roots, without suspicious nodularity or clumping. L1-L2: Ligamentum flavum redundancy. No significant spinal canal or foraminal stenosis. L2-L3: Disc bulge, ligamentum flavum redundancy. Mild abutment of the descending L3 nerve roots. Mild spinal canal stenosis. Mild bilateral foraminal stenosis. L3-L4: Disc bulge, ligamentum flavum redundancy. Mild spinal stenosis. Mild bilateral foraminal stenosis. L4-L5: Disc bulge with central protrusion component, facet arthrosis, ligamentum flavum redundancy. Mild/moderate spinal canal stenosis. Mild/moderate left greater than right foraminal stenosis. L5-S1: Disc bulge with right foraminal protrusion component. No significant spinal canal stenosis. Moderate right greater than left foraminal stenosis. Paraspinal soft tissues are within normal limits. No acute process in the visualized abdominal or pelvic compartment. IMPRESSION: Multilevel spondylotic changes most notable at L5/S1 where there is moderate bilateral foraminal stenosis, overall similar to prior. Finalized by Sonia Norton MD on 10/05/2024 2:39 PM PATIENT EDUCATION Observed: 07/26/2024 9:44 AM Status: F Source: [facility] Patient Education Oncology Prostate Cancer Screening Prostate cancer screening is testing that is done to check for the presence of prostate cancer in men. The prostate gland is a walnut-sized gland that is located below the bladder and in front of the rectum in males. The function of the prostate is to add fluid to semen during ejaculation. Prostate cancer is one of the most common types of cancer in men. Who should have prostate cancer screening? Screening recommendations vary based on age and other risk factors, as well as between the professional organizations who make the recommendations. In general, screening is recommended if: ??? You are age 50 to 70 and have an average risk for prostate cancer. You should talk with your health care provider about your need for screening and how often screening should be done. Because most prostate cancers are slow growing and will not cause , screening in this age group is generally reserved for men who have a 10- to 15-year life expectancy. ??? You are younger than age 50, and you have these risk factors: ? Having a father, brother, or uncle who has been diagnosed with prostate cancer. The risk is higher if your family member's cancer occurred at an early age or if you have multiple family members with prostate cancer at an early age. ? Being a male who is Black or is of [place] or sub-Saharan descent. In general, screening is not recommended if: ??? You are younger than age 40. ??? You are between the ages of 40 and 49 and you have no risk factors. ??? You are 70 years of age or older. At this age, the risks that screening can cause are greater than the benefits that it may provide. If you are at high risk for prostate cancer, your health care provider may recommend that you have screenings more often or that you start screening at a younger age. How is screening for prostate cancer done? The recommended prostate cancer screening test is a blood test called the prostate-specific antigen (PSA) test. PSA is a protein that is made in the prostate. As you age, your prostate naturally produces more PSA. Abnormally high PSA levels may be caused by: ??? Prostate cancer. ??? An enlarged prostate that is not caused by cancer (benign prostatic hyperplasia, or BPH). This condition is very common in older men. ??? A prostate gland infection (prostatitis) or urinary tract infection. ??? Certain medicines such as male hormones (like testosterone) or other medicines that raise testosterone levels. A rectal exam may be done as part of prostate cancer screening to help provide information about the size of your prostate gland. When a rectal exam is performed, it should be done after the PSA level is drawn to avoid any effect on the results. Depending on the PSA results, you may need more tests, such as: ??? A physical exam to check the size of your prostate gland, if not done as part of screening. ??? Blood and imaging tests. ??? A procedure to remove tissue samples from your prostate gland for testing (biopsy). This is the only way to know for certain if you have prostate cancer. What are the benefits of prostate cancer screening? Screening can help to identify cancer at an early stage, before symptoms start and when the cancer can be treated more easily. ??? There is a small chance that screening may lower your risk of dying from prostate cancer. The chance is small because prostate cancer is a slow-growing cancer, and most men with prostate cancer from a different cause. What are the risks of prostate cancer screening? The main risk of prostate cancer screening is diagnosing and treating prostate cancer that would never have caused any symptoms or problems. This is called overdiagnosisand overtreatment. PSA screening cannot tell you if your PSA is high due to cancer or a different cause. A prostate biopsy is the only procedure to diagnose prostate cancer. Even the results of a biopsy may not tell you if your cancer needs to be treated. Slow-growing prostate cancer may not need any treatment other than monitoring, so diagnosing and treating it may cause unnecessary stress or other side effects. Questions to ask your health care provider ??? When should I start prostate cancer screening? What is my risk for prostate cancer? How often do I need screening? What type of screening tests do I need? How do I get my test results? What do my results mean? Do I need treatment? Where to find more information ??? The [place] [employer]: www.cancer.org ??? [place] [employer]: www.auanet.org Contact a health care provider if: ??? You have difficulty urinating. ??? You have pain when you urinate or ejaculate. ??? You have blood in your urine or semen. ??? You have pain in your back or in the area of your prostate. Summary ??? Prostate cancer is a common type of cancer in men. The prostate gland is located below the bladder and in front of the rectum. This gland adds fluid to semen during ejaculation. ??? Prostate cancer screening may identify cancer at an early stage, when the cancer can be treated more easily and is less likely to have spread to other areas of the body. ??? The prostate-specific antigen (PSA) test is the recommended screening test for prostate cancer, but it has associated risks. ??? Discuss the risks and benefits of prostate cancer screening with your health care provider. If you are age 70 or older, the risks that screening can cause are greater than the benefits that it may provide. This information is not intended to replace advice given to you by your health care provider. Make sure you discuss any questions you have with your health care provider. Document Revised: 09/28/2021 Document Reviewed: 09/28/2021 [employer] Patient Education ? 2023 [employer]. AMBULATORY VISIT SUMMARY Observed: 07/26 8:08 AM Status: F Source: [facility] Ambulatory Visit Summary MARIE LANG :1970 Visit Date:07/26/2024 Ambulatory Visit Instructions Your Diagnosis Elevated PSA Your Care Team Attending Physician - ISAMAR GARCIA PA-C Primary Care Physician - EVERARDO, MS. AALIYAH PRAKASH This Is Your Medications List oxybutynin (oxybutynin 5 mg ER Tab) Procedures Performed History of knee surgery, Post-surgery back pain. Discharge Vitals Temperature (Temporal Artery) 36.8 ???C Heart Rate (Peripheral) 79 Respiratory Rate 16 Blood Pressure 138/82 Height 177 cm Height 70 in Weight 130.5 kg Weight 287.703 lb BMI 41.65 Medications What How Much When Instructions Unchanged oxybutynin (oxybutynin 5 mg ER Tab) 1 Tablets By Mouth Every day Allergies No Known Allergies Problems Ongoing - Any problem that you are currently receiving treatment for. Elevated PSA Prostate cancer screening Urinary urgency Patient Survey You may receive a survey via text or e-mail asking about your office visit. Please share your experience with us by completing your survey. We appreciate your feedback and thank you for choosing us for your care. UROLOGY OFFICE/CLINIC NOTE Observed: 01/2025 8:08 AM Status: F Source: [facility] Urology Office/Clinic Note Chief Complaint f/u with MRI HPI Staff 54yr old male here for MRI f/u and med check Previous Dx: urinary urgency, prostate cancer screening *oxybutynin 5mg qd, pt is not taking, has not gotten yet PSA: 10/12/19 - 1.34 05/21/24 - 2.5 Incomplete bladder emptying less than half the time. Frequency pt states he is voiding every 3 hours during the day and urgency more than half the time. Nocturia x3. IPSS score is 13 today. JOSSUE score is 22. Denies any visible blood at any time, no dysuria or abdominal/flank pain. Review of Systems PHQ Score Initial Depression Screen Score: 0 SCORE no fever, chills, malaise, myalgia. Physical Exam Vitals & Measurements T: 36.8 ???C(Temporal Artery) HR: 79(Peripheral) RR: 16 BP: 138/82 HT: 177 cm HT: 70 in WT: 130.5 kg WT: 287.703 lb BMI: 41.65 General: nontoxic, NAD Mouth: moist mucosa Lungs: normal respiratory effort Cardio: regular rate, good distal perfusion Abdomen: nondistended Neurologic: Grossly normal Skin: No rashes or suspicious lesions Assessment/Plan 1. Elevated PSA (R97.20: Elevated prostate specific antigen [PSA]) PSA: 10/12/19 - 1.34 05/21/24 - 2.5 No family hx prostate cancer. YOLY: benign. no asymmetry, induration, nodules. Discussed that the rate of rise over 5 years is not worrisome. However the overall number is higher than expected for his young age. While <4.0 is considered normal for the general population, we would expect a much lower number for someone who is only 54yo. MRI 07/18/24 shows evidence of prior prostatitis but no evidence of malignancy. This is encouraging. I did explain that MRI can miss cancer about 10% of the time. Therefore we will continue to keep a close eye on his PSA. -PSA 6 mos Ordered: E&M of Est. Patient Moderate 30-39 Min 06485 Urnls Dip Stick Auto w/o Microscopy POC 12050 2. Urinary urgency (R39.15: Urgency of urination) 05/21/24: Has had frequency/nocturia his entire life but in the past year has noticed worsening urgency with even some rare UUI. This is bothersome. Has never seen Uro before. Has never tried meds before. Denies constipation. Denies excessive fluid intake. PVR low. UA negative. A1c 09/10/21 - 6.5 09/09/22 - 6.1 -start with Oxybutynin. 06/01/24: Pt has not started med yet. Says pharmacy never called him that it's ready. Did confirm that it was sent on 05/21. Recommended he call pharmacy to see what's going on. Assess efficacy when pt returns to discuss MRI results. TODAY: Pt took Oxybutynin x 1 mo. Did not refill bc it did not improve his urgency or frequency. No bothesome side effects. Will try Vesicare 5mg daily. Risks/benefits/side effects discussed. Pt will call in 1 mo w update. Can increase to 10mg if no s/e or if doing well then schedule ov to make sure PVR remaining low on anticholinergic. -Dc Oxybutynin -Start Vesicare 5mg Ordered: E&M of Est. Patient Moderate 30-39 Min 90829 Orders: solifenacin, 5 mg = 1 tab(s), Oral, Daily, # 30 tab(s), Refills(s) 1, Pharmacy: [facility]/pharmacy #[id number], 177, cm, 07/26/24 8:28:00 EDT, Height/Length Dosing, 130.5, kg, 07/26/24 8:28:00 EDT, Weight Dosing Follow-up With When Contact Information RADHA ZHENG, ISAMAR Garcia, URL In 6 months [address] [place] [address] Additional Instructions: Patient Education Prostate Cancer Screening Problem List/Past Medical History Ongoing Elevated PSA Prostate cancer screening Urinary urgency Historical No qualifying data Procedure/Surgical History History of knee surgery, Post-surgery back pain. Medications Vesicare 5 mg Tab, 5 mg= 1 tab(s), Oral, Daily, 1 refills Allergies No Known Allergies Social History Alcohol Never., 05/20/2024 Substance Abuse Never., 05/20/2024 Tobacco Never (less than 100 in lifetime) Tobacco Use:. Never Smokeless Tobacco Use:. Household tobacco concerns: No., 07/26/2024 Family History Diabetes: Mother. Lab Results Ambulatory Point of Care Results Bilirubin Urine Dipstick: Negative (07/26/24 08:23:00) Blood Urine Dipstick: Trace-intact (07/26/24 08:23:00) Glucose Urine Dipstick: Negative (07/26/24 08:23:00) Ketones Urine Dipstick: Negative (07/26/24 08:23:00) Leukocytes Urine Dipstick: Negative (07/26/24 08:23:00) Nitrite Urine Dipstick: Negative (07/26/24 08:23:00) Protein Urine Dipstick: Negative (07/26/24 08:23:00) Specific [place] Urine Dipstick: 1.025 (07/26/24 08:23:00) Urine Appearance Urine Dipstick: Clear (07/26/24 08:23:00) Urine Color Urine Dipstick: Yellow (07/26/24 08:23:00) Urobilinogen Urine Dipstick: Normal 0.2-1 EU/dl (07/26/24 08:23:00) pH Urine Dipstick: 5.5 (07/26/24 08:23:00) Result Comment: Electronical ly Signed By: ISAMAR GARCIA PA-C\Date and Time Signed: 07/26/24 09:45 EDT MR PROSTATE WO/W CON Observed: 5 8:38 AM Status: COMPLETED Source: [facility] [place] [address] MRI Report Signed Patient: Marie Lang JR MR#: [id number] : 1970 Acct:[id number] Age/Sex: 54 / M ADM Date: 07/18/24 Loc: MR Room: Type: [facility] Attending Dr: Isamar Garcia PA-C Copies to: Isamar Garcia PA-C Ordering Provider: Isamar Garcia PA-C Date of Service: 07/18/24 MR/MR prostate wo/w con: ELEVATED PSA EXAMINATION: MR prostate wo/w con HISTORY: Elevated PSA COMPARISON: NONE TECHNIQUE: Multiparametric imaging of the prostate gland was performed with IV contrast. FINDINGS: Prostate Dimensions: 4.7 x 4.4 x 6.1 cm. Prostate Volume: 66 mL. Peripheral Zone: Heterogenous inT2 signal suggestive of prior prostatitis. No suspicious T2 or ADC map abnormality is identified to suggest prostate malignancy. Central/Transitional Zone: BPH changes. Seminal Vesicles: Unremarkable Neurovascular bundles: Unremarkable. Lymphadenopathy: No evidence of lymphadenopathy. Bladder: No focal lesion. Bowel: The visualized bowel is without acute abnormality. Peritoneal Cavity: Left-sided fat filled inguinal hernia. Bones: No suspicious bony lesion. MR/MR prostate wo/w con IMPRESSION: No MRI evidence of clinically significant prostate cancer. Impression dictated by: Brett Damon Jr., D.ORubén07/19/2024 8:59 AM Dictation Location: [facility]--22 Transcribed By: [facility] 07/19/24 0859 Dictated By: Brett Damon Jr, DO 07/19/24 0838 Signed By: <Electronically signed by Brett Damon Jr, DO in OV> 07/19/24 0859 AMBULATORY VISIT SUMMARY Observed: 06/01 12:09 PM Status: F Source: [facility] Ambulatory Visit Summary MARIE LANG :1970 Visit Date:06/01/2024 Ambulatory Visit Instructions Your Diagnosis Elevated PSA Urinary urgency Your Care Team Attending Physician - ISAMAR GARCIA PA-C Primary Care Physician - MS. AALIYAH CALIXTO This Is Your Medications List oxybutynin (oxybutynin 5 mg ER Tab) Discharge Vitals Heart Rate (Peripheral) 64 Blood Pressure 138/86 Height 177 cm Height 70 in Weight 123 kg Weight 271.168 lb BMI 39.26 What to do next Scheduled Follow-Up Appointments Tuesday 3:00 PM EDT With: ISAMAR GARCIA PA-C Where: [facility] [address] [address] You Need to Schedule the Following Appointments Follow Up with ISAMAR GARCIA PA-C, URL When: Within 6 weeks Where: [address] [place] [address] Business (1) Medications What How Much When Instructions Unchanged oxybutynin (oxybutynin 5 mg ER Tab) 1 Tablets By Mouth Every day Allergies No Known Allergies Problems Ongoing - Any problem that you are currently receiving treatment for. Elevated PSA Prostate cancer screening Urinary urgency Patient Survey You may receive a survey via text or e-mail asking about your office visit. Please share your experience with us by completing your survey. We appreciate your feedback and thank you for choosing us for your care. Education Materials Prostate Cancer Screening Prostate cancer screening is testing that is done to check for the presence of prostate cancer in men. The prostate gland is a walnut-sized gland that is located below the bladder and in front of the rectum in males. The function of the prostate is to add fluid to semen during ejaculation. Prostate cancer is one of the most common types of cancer in men. Who should have prostate cancer screening? Screening recommendations vary based on age and other risk factors, as well as between the professional organizations who make the recommendations. In general, screening is recommended if: ??? You are age 50 to 70 and have an average risk for prostate cancer. You should talk with your health care provider about your need for screening and how often screening should be done. Because most prostate cancers are slow growing and will not cause , screening in this age group is generally reserved for men who have a 10- to 15-year life expectancy. ??? You are younger than age 50, and you have these risk factors: ? Having a father, brother, or uncle who has been diagnosed with prostate cancer. The risk is higher if your family member's cancer occurred at an early age or if you have multiple family members with prostate cancer at an early age. ? Being a male who is Black or is of [place] or sub-Saharan descent. In general, screening is not recommended if: ??? You are younger than age 40. ??? You are between the ages of 40 and 49 and you have no risk factors. ??? You are 70 years of age or older. At this age, the risks that screening can cause are greater than the benefits that it may provide. If you are at high risk for prostate cancer, your health care provider may recommend that you have screenings more often or that you start screening at a younger age. How is screening for prostate cancer done? The recommended prostate cancer screening test is a blood test called the prostate-specific antigen (PSA) test. PSA is a protein that is made in the prostate. As you age, your prostate naturally produces more PSA. Abnormally high PSA levels may be caused by: ??? Prostate cancer. ??? An enlarged prostate that is not caused by cancer (benign prostatic hyperplasia, or BPH). This condition is very common in older men. ??? A prostate gland infection (prostatitis) or urinary tract infection. ??? Certain medicines such as male hormones (like testosterone) or other medicines that raise testosterone levels. A rectal exam may be done as part of prostate cancer screening to help provide information about the size of your prostate gland. When a rectal exam is performed, it should be done after the PSA level is drawn to avoid any effect on the results. Depending on the PSA results, you may need more tests, such as: ??? A physical exam to check the size of your prostate gland, if not done as part of screening. ??? Blood and imaging tests. ??? A procedure to remove tissue samples from your prostate gland for testing (biopsy). This is the only way to know for certain if you have prostate cancer. What are the benefits of prostate cancer screening? Screening can help to identify cancer at an early stage, before symptoms start and when the cancer can be treated more easily. ??? There is a small chance that screening may lower your risk of dying from prostate cancer. The chance is small because prostate cancer is a slow-growing cancer, and most men with prostate cancer from a different cause. What are the risks of prostate cancer screening? The main risk of prostate cancer screening is diagnosing and treating prostate cancer that would never have caused any symptoms or problems. This is called overdiagnosisand overtreatment. PSA screening cannot tell you if your PSA is high due to cancer or a different cause. A prostate biopsy is the only procedure to diagnose prostate cancer. Even the results of a biopsy may not tell you if your cancer needs to be treated. Slow-growing prostate cancer may not need any treatment other than monitoring, so diagnosing and treating it may cause unnecessary stress or other side effects. Questions to ask your health care provider ??? When should I start prostate cancer screening? What is my risk for prostate cancer? How often do I need screening? What type of screening tests do I need? How do I get my test results? What do my results mean? Do I need treatment? Where to find more information ??? The [place] [employer]: www.cancer.org ??? [place] [employer]: www.auanet.org Contact a health care provider if: ??? You have difficulty urinating. ??? You have pain when you urinate or ejaculate. ??? You have blood in your urine or semen. ??? You have pain in your back or in the area of your prostate. Summary ??? Prostate cancer is a common type of cancer in men. The prostate gland is located below the bladder and in front of the rectum. This gland adds fluid to semen during ejaculation. ??? Prostate cancer screening may identify cancer at an early stage, when the cancer can be treated more easily and is less likely to have spread to other areas of the body. ??? The prostate-specific antigen (PSA) test is the recommended screening test for prostate cancer, but it has associated risks. ??? Discuss the risks and benefits of prostate cancer screening with your health care provider. If you are age 70 or older, the risks that screening can cause are greater than the benefits that it may provide. This information is not intended to replace advice given to you by your health care provider. Make sure you discuss any questions you have with your health care provider. Document Revised: 09/28/2021 Document Reviewed: 09/28/2021 [employer] Patient Education ??? 2023 [employer]. UROLOGY OFFICE/CLINIC NOTE Observed: 10:42 AM Status: F Source: [facility] Urology Office/Clinic Note Chief Complaint 2-3 mth f/u HPI Staff 54yr old male pt here for 1-2wk OV and possible select mdx collection. Previous Dx: urinary urgency, prostate cancer screening *oxybutynin 5mg qd, pt is not taking, has not gotten yet PSA: 10/12/19 - 1.34 05/21/24 - 2.5 Dysuria: _no Incomplete bladder emptying: _no Hematuria: _no Frequency: _about half the time has to void <2hrs, other times can hold it 2- 3hrs. Urgency: _yes Nocturia: _3x Stream: _normal Leaking: _not often Post void dripping: _no Wearing pads/ Depends: _no Urge incontinence: _rarely Stress incontinence: _no Incontinence without Sensory Awareness: _no Abdominal pain: _no Flank pain: _no Sexual complaints: _ Review of Systems PHQ Score Initial Depression Screen Score: 0 SCORE No fever, chills, malaise, myalgia. No dysuria, pain w/ ejaculation, pain w/ BM. No blood in urine, ejaculate, or stool. No straining, stream changes. No discharge, odor, or change in color of urine. No perineal pain/pressure, scrotal pain, or suprapubic pain. Physical Exam Vitals & Measurements HR: 64(Peripheral) BP: 138/86 HT: 70 in HT: 177 cm WT: 123 kg WT: 271.168 lb BMI: 39.26 Nontoxic Assessment/Plan 1. Elevated PSA (R97.20: Elevated prostate specific antigen [PSA]) PSA: 10/12/19 - 1.34 05/21/24 - 2.5 No family hx prostate cancer. YOLY: benign. no asymmetry, induration, nodules. Discussed that the rate of rise over 5 years is not worrisome. However the overall number is higher than expected for his young age. While <4.0 is considered normal for the general population, we would expect a much lower number for someone who is only 54yo. I discussed the pros and cons of PSA with the patient today. The various causes of PSA elevation were outlined, including prostate cancer, prostate enlargement, infection of the prostate, inflammation without infection, as well as prostate manipulation. The options regarding this PSA elevation, including prostate biopsy versus close monitoring, versus obtaining an MRI of the prostate were discussed. The patient has decided upon obtaining an MRI of the prostate. If it is normal, then we will continue PSA monitoring, consider q6mos for a few years to confirm stability. If MRI abnl, will discuss prostate biopsy. Ordered: E&M of Est. Patient Moderate 30-39 Min 18124 2. Urinary urgency (R39.15: Urgency of urination) 05/21/24: Has had frequency/nocturia his entire life but in the past year has noticed worsening urgency with even some rare UUI. This is bothersome. Has never seen Uro before. Has never tried meds before. Denies constipation. Denies excessive fluid intake. PVR low. UA negative. A1c 09/10/21 - 6.5 09/09/22 - 6.1 -start with Oxybutynin. TODAY: Pt has not started med yet. Says pharmacy never called him that it's ready. Did confirm that it was sent on 05/21. Recommended he call pharmacy to see what's going on. Assess efficacy when pt returns to discuss MRI results. Ordered: E&M of Est. Patient Moderate 30-39 Min 06301 Follow-up With When Contact Information ISAMAR GARCIA PA-C, URL Within 6 weeks [address] [place] [address] [facility] (1) Additional Instructions: Patient Education Prostate Cancer Screening Problem List/Past Medical History Ongoing Elevated PSA Prostate cancer screening Urinary urgency Historical No qualifying data Medications oxybutynin 5 mg ER Tab, 5 mg= 1 tab(s), Oral, Daily, 2 refills Allergies No Known Allergies Social History Alcohol Never., 05/20/2024 Substance Abuse Never., 05/20/2024 Tobacco Never (less than 100 in lifetime) Tobacco Use:., 06/01/2024 Result Comment: Electronical ly Signed By: ISAMAR GARCIA [email or web address]\Date and Time Signed: 06/01/24 10:43 EST PATIENT EDUCATION Observed: 06/01/2024 10:42 AM Status: F Source: [facility] Patient Education Oncology Prostate Cancer Screening Prostate cancer screening is testing that is done to check for the presence of prostate cancer in men. The prostate gland is a walnut-sized gland that is located below the bladder and in front of the rectum in males. The function of the prostate is to add fluid to semen during ejaculation. Prostate cancer is one of the most common types of cancer in men. Who should have prostate cancer screening? Screening recommendations vary based on age and other risk factors, as well as between the professional organizations who make the recommendations. In general, screening is recommended if: ??? You are age 50 to 70 and have an average risk for prostate cancer. You should talk with your health care provider about your need for screening and how often screening should be done. Because most prostate cancers are slow growing and will not cause , screening in this age group is generally reserved for men who have a 10- to 15-year life expectancy. ??? You are younger than age 50, and you have these risk factors: ? Having a father, brother, or uncle who has been diagnosed with prostate cancer. The risk is higher if your family member's cancer occurred at an early age or if you have multiple family members with prostate cancer at an early age. ? Being a male who is Black or is of [place] or sub-Saharan descent. In general, screening is not recommended if: ??? You are younger than age 40. ??? You are between the ages of 40 and 49 and you have no risk factors. ??? You are 70 years of age or older. At this age, the risks that screening can cause are greater than the benefits that it may provide. If you are at high risk for prostate cancer, your health care provider may recommend that you have screenings more often or that you start screening at a younger age. How is screening for prostate cancer done? The recommended prostate cancer screening test is a blood test called the prostate-specific antigen (PSA) test. PSA is a protein that is made in the prostate. As you age, your prostate naturally produces more PSA. Abnormally high PSA levels may be caused by: ??? Prostate cancer. ??? An enlarged prostate that is not caused by cancer (benign prostatic hyperplasia, or BPH). This condition is very common in older men. ??? A prostate gland infection (prostatitis) or urinary tract infection. ??? Certain medicines such as male hormones (like testosterone) or other medicines that raise testosterone levels. A rectal exam may be done as part of prostate cancer screening to help provide information about the size of your prostate gland. When a rectal exam is performed, it should be done after the PSA level is drawn to avoid any effect on the results. Depending on the PSA results, you may need more tests, such as: ??? A physical exam to check the size of your prostate gland, if not done as part of screening. ??? Blood and imaging tests. ??? A procedure to remove tissue samples from your prostate gland for testing (biopsy). This is the only way to know for certain if you have prostate cancer. What are the benefits of prostate cancer screening? Screening can help to identify cancer at an early stage, before symptoms start and when the cancer can be treated more easily. ??? There is a small chance that screening may lower your risk of dying from prostate cancer. The chance is small because prostate cancer is a slow-growing cancer, and most men with prostate cancer from a different cause. What are the risks of prostate cancer screening? The main risk of prostate cancer screening is diagnosing and treating prostate cancer that would never have caused any symptoms or problems. This is called overdiagnosisand overtreatment. PSA screening cannot tell you if your PSA is high due to cancer or a different cause. A prostate biopsy is the only procedure to diagnose prostate cancer. Even the results of a biopsy may not tell you if your cancer needs to be treated. Slow-growing prostate cancer may not need any treatment other than monitoring, so diagnosing and treating it may cause unnecessary stress or other side effects. Questions to ask your health care provider ??? When should I start prostate cancer screening? What is my risk for prostate cancer? How often do I need screening? What type of screening tests do I need? How do I get my test results? What do my results mean? Do I need treatment? Where to find more information ??? The [place] [employer]: www.cancer.org ??? [place] [employer]: www.auanet.org Contact a health care provider if: ??? You have difficulty urinating. ??? You have pain when you urinate or ejaculate. ??? You have blood in your urine or semen. ??? You have pain in your back or in the area of your prostate. Summary ??? Prostate cancer is a common type of cancer in men. The prostate gland is located below the bladder and in front of the rectum. This gland adds fluid to semen during ejaculation. ??? Prostate cancer screening may identify cancer at an early stage, when the cancer can be treated more easily and is less likely to have spread to other areas of the body. ??? The prostate-specific antigen (PSA) test is the recommended screening test for prostate cancer, but it has associated risks. ??? Discuss the risks and benefits of prostate cancer screening with your health care provider. If you are age 70 or older, the risks that screening can cause are greater than the benefits that it may provide. This information is not intended to replace advice given to you by your health care provider. Make sure you discuss any questions you have with your health care provider. Document Revised: 09/28/2021 Document Reviewed: 09/28/2021 [employer] Patient Education ? 2023 [employer]. PSA SCREEN, TOTAL Collected: 5 3:36 PM Status: F Source: [facility] TYPE CODE TESTS RESULT OUT OF RANGE REFERENCE UNITS LAB 2857-1([facility]) PROSTATE SPECIFIC AG:MCNC:PT:S ER/PLAS:QN: 2.5 Normal 0.1-3.5 ng/mL Result Comment: The concentr ation of PSA determined by different manufacturers can vary due to differences in assay methods and reagent specificity. Values obtained from different assay methods cannot be used interchangeably. The methodology used for this result was chemiluminescence using [employer] Access Hybritech PSA reagent. Performed By: #### [id number] #### [facility] [address] [place] [address] UROLOGY OFFICE/CLINIC NOTE Observed: 06/2024 3:10 PM Status: F Source: [facility] Urology Office/Clinic Note Chief Complaint referral - urgency HPI Staff 54yr old male pt referred by Aaliyah Calixto NP for increased urinary frequency and urgency. PSA 10/12/19 - 1.34 A1c 09/10/21 - 6.5 09/09/22 - 6.1 Dysuria: _no Incomplete bladder emptying: _no Hematuria: _no Frequency: _about half the time has to void <2hrs, other times can hold it 2- 3hrs. Urgency: _yes Nocturia: _3x Stream: _normal Leaking: _not often Post void dripping: _no Wearing pads/ Depends: _no Urge incontinence: _rarely Stress incontinence: _no Incontinence without Sensory Awareness: _no Abdominal pain: _no Flank pain: _no Sexual complaints: _ Review of Systems PHQ Score Initial Depression Screen Score: 0 SCORE no fever, chills, malaise, myalgia. no rash/lesions. no chest pain, palpitations, or SOB. no abdominal pain, nausea, vomiting. Physical Exam Vitals & Measurements HR: 72(Peripheral) BP: 126/72 HT: 70 in HT: 177 cm WT: 123 kg WT: 271.168 lb BMI: 39.26 General: nontoxic, NAD Mouth: moist mucosa Lungs: normal respiratory effort Cardio: regular rate, good distal perfusion Abdomen: nondistended, no suprapubic distention or tenderness, no CVA tenderness Neurologic: Grossly normal Skin: No rashes or suspicious lesions Assessment/Plan 1. Urinary urgency (R39.15: Urgency of urination) Has had frequency/nocturia his entire life but in the past year has noticed worsening urgency with even some rare UUI. This is bothersome. Has never seen Uro before. Has never tried meds before. Denies constipation. Denies excessive fluid intake. PVR low. UA negative. A1c 09/10/21 - 6.5 09/09/22 - 6.1 Discussed tx options for bothersome urinary sx including oral medications, Botox, SNM. Medication management includes anticholinergics and beta-3 agonists. Beta-3's (Myrbetriq/Gemtesa) are often preferable due to lower side effect profile, but most insurances won't cover without trying anticholinergics first. Therefore we will start with Oxybutynin. Pt will start with lowest daily dose and slowly titrate up as pt tolerates. I explained the most common side effects are dry mouth, dry eyes, and constipation. We discussed OTC options to help with these side effects. Pt will stop medication and call office if side effects become intolerable. F/u 2-3 mos to assess med efficacy and check PVR. Ordered: E&M of New Patient Moderate 45-59 Min 64964 2. Prostate cancer screening (Z12.5: Encounter for screening for malignant neoplasm of prostate) No family hx prostate cancer. PSA 10/12/19 - 1.34 Drawn IO today. Ordered: E&M of New Patient Moderate 45-59 Min 65653 Orders: oxybutynin, 5 mg = 1 tab(s), Oral, Daily, # 30 tab(s), Refills(s) 2, Pharmacy: [facility]/pharmacy #[id number], 177, cm, 05/21/24 14:26:00 EST, Height/Length Dosing, 123, kg, 05/21/24 14:26:00 EST, Weight Dosing 59390 Measure Post Void residual urine and/or bladder capacity by US- non- imaging Urnls Dip Stick Auto w/o Microscopy POC [id number] Follow-up With When Contact Information RADHA ZHENG, ISAMAR Garcia, URL In 3 months [address] [place] [address] Additional Instructions: Patient Education Prostate Cancer Screening Problem List/Past Medical History Ongoing Prostate cancer screening Urinary urgency Historical No qualifying data Medications oxybutynin 5 mg ER Tab, 5 mg= 1 tab(s), Oral, Daily, 2 refills Allergies No Known Allergies Social History Alcohol Never., 05/20/2024 Substance Abuse Never., 05/20/2024 Tobacco Never (less than 100 in lifetime) Tobacco Use:., 05/21/2024 Lab Results Ambulatory Point of Care Results Bilirubin Urine Dipstick: Negative (05/21/24 14:17:00) Blood Urine Dipstick: Negative (05/21/24 14:17:00) Glucose Urine Dipstick: Negative (05/21/24 14:17:00) Ketones Urine Dipstick: Negative (05/21/24 14:17:00) Leukocytes Urine Dipstick: Negative (05/21/24 14:17:00) Nitrite Urine Dipstick: Negative (05/21/24 14:17:00) Protein Urine Dipstick: Negative (05/21/24 14:17:00) Specific [place] Urine Dipstick: 1.025 (05/21/24 14:17:00) Urine Appearance Urine Dipstick: Clear (05/21/24 14:17:00) Urine Color Urine Dipstick: Yellow (05/21/24 14:17:00) Urobilinogen Urine Dipstick: Normal 0.2-1 EU/dl (05/21/24 14:17:00) pH Urine Dipstick: 5.5 (05/21/24 14:17:00) Result Comment: Electronical ly Signed By: ISAMAR GARCIA [email or web address].br\Date and Time Signed: 05/21/24 15:11 EST PATIENT EDUCATION Observed: 05/21/2024 3:09 PM Status: F Source: [facility] Patient Education Oncology Prostate Cancer Screening Prostate cancer screening is testing that is done to check for the presence of prostate cancer in men. The prostate gland is a walnut-sized gland that is located below the bladder and in front of the rectum in males. The function of the prostate is to add fluid to semen during ejaculation. Prostate cancer is one of the most common types of cancer in men. Who should have prostate cancer screening? Screening recommendations vary based on age and other risk factors, as well as between the professional organizations who make the recommendations. In general, screening is recommended if: ??? You are age 50 to 70 and have an average risk for prostate cancer. You should talk with your health care provider about your need for screening and how often screening should be done. Because most prostate cancers are slow growing and will not cause , screening in this age group is generally reserved for men who have a 10- to 15-year life expectancy. ??? You are younger than age 50, and you have these risk factors: ? Having a father, brother, or uncle who has been diagnosed with prostate cancer. The risk is higher if your family member's cancer occurred at an early age or if you have multiple family members with prostate cancer at an early age. ? Being a male who is Black or is of [place] or sub-Saharan descent. In general, screening is not recommended if: ??? You are younger than age 40. ??? You are between the ages of 40 and 49 and you have no risk factors. ??? You are 70 years of age or older. At this age, the risks that screening can cause are greater than the benefits that it may provide. If you are at high risk for prostate cancer, your health care provider may recommend that you have screenings more often or that you start screening at a younger age. How is screening for prostate cancer done? The recommended prostate cancer screening test is a blood test called the prostate-specific antigen (PSA) test. PSA is a protein that is made in the prostate. As you age, your prostate naturally produces more PSA. Abnormally high PSA levels may be caused by: ??? Prostate cancer. ??? An enlarged prostate that is not caused by cancer (benign prostatic hyperplasia, or BPH). This condition is very common in older men. ??? A prostate gland infection (prostatitis) or urinary tract infection. ??? Certain medicines such as male hormones (like testosterone) or other medicines that raise testosterone levels. A rectal exam may be done as part of prostate cancer screening to help provide information about the size of your prostate gland. When a rectal exam is performed, it should be done after the PSA level is drawn to avoid any effect on the results. Depending on the PSA results, you may need more tests, such as: ??? A physical exam to check the size of your prostate gland, if not done as part of screening. ??? Blood and imaging tests. ??? A procedure to remove tissue samples from your prostate gland for testing (biopsy). This is the only way to know for certain if you have prostate cancer. What are the benefits of prostate cancer screening? Screening can help to identify cancer at an early stage, before symptoms start and when the cancer can be treated more easily. ??? There is a small chance that screening may lower your risk of dying from prostate cancer. The chance is small because prostate cancer is a slow-growing cancer, and most men with prostate cancer from a different cause. What are the risks of prostate cancer screening? The main risk of prostate cancer screening is diagnosing and treating prostate cancer that would never have caused any symptoms or problems. This is called overdiagnosisand overtreatment. PSA screening cannot tell you if your PSA is high due to cancer or a different cause. A prostate biopsy is the only procedure to diagnose prostate cancer. Even the results of a biopsy may not tell you if your cancer needs to be treated. Slow-growing prostate cancer may not need any treatment other than monitoring, so diagnosing and treating it may cause unnecessary stress or other side effects. Questions to ask your health care provider ??? When should I start prostate cancer screening? What is my risk for prostate cancer? How often do I need screening? What type of screening tests do I need? How do I get my test results? What do my results mean? Do I need treatment? Where to find more information ??? The [place] [employer]: www.cancer.org ??? [place] [employer]: www.auanet.org Contact a health care provider if: ??? You have difficulty urinating. ??? You have pain when you urinate or ejaculate. ??? You have blood in your urine or semen. ??? You have pain in your back or in the area of your prostate. Summary ??? Prostate cancer is a common type of cancer in men. The prostate gland is located below the bladder and in front of the rectum. This gland adds fluid to semen during ejaculation. ??? Prostate cancer screening may identify cancer at an early stage, when the cancer can be treated more easily and is less likely to have spread to other areas of the body. ??? The prostate-specific antigen (PSA) test is the recommended screening test for prostate cancer, but it has associated risks. ??? Discuss the risks and benefits of prostate cancer screening with your health care provider. If you are age 70 or older, the risks that screening can cause are greater than the benefits that it may provide. This information is not intended to replace advice given to you by your health care provider. Make sure you discuss any questions you have with your health care provider. Document Revised: 09/28/2021 Document Reviewed: 09/28/2021 Elsevier Patient Education ? 2023 [employer] XR SPINE CERVICAL FLEXION/EXTENSION ONLY Observed: 04/24/2024 3:13 PM Status: COMPLETED Source: [facility] XR SPINE CERVICAL FLEXION/EX TENSION ONLY XR SPINE CERVICAL FLEXION/EXTENSION ONLY IMPRESSION: Clinical Information: Status post cervical spinal fusion Comparison: 05/14/23. * C5-6 ACDF. No instability on dynamic imaging. Cervicothoracic junction is poorly assessed. Facet degenerative changes. Finalized by Rio Delgado MD on 04/24/2024 3:27 PM ALLERGIES DATE TYPE / CODE NAME / CODE REACTION SEVERITY SOURCE 07/18/2024 Drug Allergy/7680000 02(SNOMED CT) No Known Allergies/E983470433 (RXNORM) [facility]/718806221(SN OMED CT) No Known Allergies [facility] Drug Class/601393046 (SNOMED CT) NO KNOWN ALLERGIES [facility] Ambulatory PPG ENCOUNTERS ADMIT/DISCHARGE ACCOUNT NUMBER ADMITTING ENCOUNTER CLASS LOCATION SOURCE 01/14/2025 [id number] Ambulatory EU [place]:EU [place] : Exam 3 [facility] 12/12/2024/12/13/19 25 [id number] Ambulatory Building:[facility] _[facility] 11/23/2024/11/24/19 25 [id number] Ambulatory Building:PFM _XR [facility] 11/23/2024/11/24/19 25 [id number] SALIMA CASTRO Ambulatory Building:PFM _PERIOPP [facility] 10/31/2024/11/01/19 25 [id number] [facility] 25 [id number] Ambulatory Buildin 02 [facility] Ambulatory PPG 10/22/2024/10/23/19 25 [id number] Ambulatory Building:PTH _NSCXR [facility] 10/15/2024/10/16/19 [id number] Ambulatory Building:[facility]IC 10/03/2024/10/04/19 25 [id number] Ambulatory Building:PFM _MRI [facility] 08/13/2024/08/14/19 [id number] Ambulatory Building:[facility] EP[facility] 07/26/2024/07/27/19 25 [id number] Ambulatory EU [place]:EU [place] : Exam 1 [facility] 07/18/2024/07/19/19 25 [id number] Isamar Garcia [facility] 07/11/2024/07/12/19 [id number] Ambulatory Building:[facility] 06/01/2024/06/01/19 [id number] Ambulatory EU [place]:EU [place] : CD:[id number] 3 [facility] 05/21/2024/05/21/19 25 [id number] ISAMAR GARCIA Ambulatory FTMCBuilding :FT LAB [facility] 05/21/2024/05/21/19 25 [id number] Ambulatory EU [place]:EU [place] : CD:[id number] 5 [facility] 04/24/2024/04/24/19 25 [id number] Ambulatory Building:PTH _NSCXR [facility] 04/24/2024/04/24/19 25 [id number] Ambulatory Buildin 02 [facility] Ambulatory PPG 03/27/2024 [id number] Ambulatory [place] [facility] 03/26/2024/03/26/20 24 [id number] Ambulatory Building:[facility] EPIC PAYERS ENCOUNTER GUARANTOR PAYER SUBSCRIBER SOURCE 01/14/2025 MARIE MORRIS: [id number] 19Tel: ~~(5 6 (HP) Primary Insurance:MEDICAL MUTUALPolicy Number: [id number] Date:[id number], [place] [address]GU: MARIELOPEZ [facility] 12/12/2024 MARIE LANG JR.: [facility] [address], [place] [address]Zmn: (HP) Primary Insurance:MMO SUPERMEDPolicy Number: [id number] Date:2024-04-18 MARIE LANG JR.: [id number] [address], [place] [address]Mde: (WP) [facility] 11/23/2024 MARIE LANG JR.: [address], [place] [address]Ekj: (HP) Primary Insurance:MMO SUPERMEDPolicy Number: [id number] Date:2024-04-18 MARIE LANG JR.: [id number] [address], [place] [address]Olp: (WP) [facility] 11/23/2024 MARIE LANG JR.: [address], [place] [address]Obw: (HP) Primary Insurance:MMO SUPERMEDPolicy Number: [id number] Date:2024-04-18 MARIE LANG JR.: [id number] [address], [place] [address]Uhu: (WP) [facility] 10/31/2024 MARIE LANG JR.: [facility] [address], [place] [address]Uuq: (HP) Primary Insurance:MMO SUPERMEDPolicy Number: [id number] Date:2024-04-18 MARIE Laly RICKEY BRISENO: [id number] [address], [place] [address]Zla: (WP) [facility] 10/22/2024 MARIE Laly RICKEY BRISENO: [facility] [address] [address], [place] [address]Cam: (HP) Primary Insurance:[facility] SUPERMEDPolicy Number: [id number] Date:2024-04-18 MARIE Ruffin RICKEY BRISENO: [id number] [address], [place] [address]Heq: (WP) [facility] 10/22/2024 MARIEKHAN JR.: [address], [place] [address]Rfb: (HP) Primary Insurance:[facility] SUPERMEDPolicy Number: [id number] Date:2024-04-18 MARIE Laly RICKEY BRISENO: [id number] [address], [place] [address]Wpl: (WP) [facility] 10/15/2024 MARIEKHANDOB: [facility] [address] [address], [place] [address]Ovd: (HP) (WP) Primary Insurance:CIGNAPolicy Number: [id number] e Date:4396-17-90NF PRIYA 537049BCNQPDEEFHX, [place] [address]BN: MARIE LANGDOB: [id number] [facility] [address] [address], [place] [address] [facility] 10/03/2024 MARIE LANG JR.: [address], [place] [address]Ymg: (HP) Primary Insurance:O SUPERMEDPolicy Number: [id number] Date:2024-04-18 MARIE Laly RICKEY BRISENO: [id number] [address] [address]Mlh: (WP) [facility] 08/13/2024 MARIE LANGB: [facility] [address], [place] [address]Poa: (HP) (WP) Primary Insurance:CIGNAPolicy Number: [id number] e Date:0222-97-75XK [address]IOCOALQNBQE, [place] [address]BD: MARIE Ruffin RICKEYDOB: [id number] [facility] [address] [address], [place] [address] [facility] 07/26/2024 MARIE Ruffin SEBASTIANPEDROB: [facility] [address] 19Tel: ~~(5 6 (HP) Primary Insurance:MEDICAL MUTUALPolicy Number: [id number] Date:3788-67-91GW [address] [place] [address]KR: MARIE NUÑEZ [facility] 07/18/2024 MariehKan JR740 [facility] [address], [place] [address]Jfa: (HP) Primary Insurance:MMOPolicy Number: [id number] Date:7969-97-79AG [address] [place] [address]TS: Marie Laly Rickey NOVAKDOB: [id number] [facility] [address], [place] [address]Nrz: (HP) [facility] 07/18/2024 Secondary Insurance:Self PayPolicy Number: Effective Date:2024-06-21 [facility] 07/11/2024 MARIE MORRIS: [address] [address]Uxd: (HP) (WP) Primary Insurance:MEDICAL MUTUALPolicy Number: [id number] Date: - MARIE LANGB: [id number] [address] [address] [facility] 06/01/2024 MARIE LANGB: [place] [address] [address]Tel: ~~(5 6 (HP) Primary Insurance:MEDICAL MUTUALPolicy Number: [id number] Date:4687-56-82IO [address] [address]ZX: MARIE NUÑEZ [facility] 05/21/2024 MARIE LANGB: [place] [address] [address]Tel: ~~(5 6 (HP) Primary Insurance:MEDICAL MUTUALPolicy Number: [id number] Date:0744-84-69RO [address] [address]GL: MARIE NUÑEZ [facility] 05/21/2024 MARIE KINGB: [place] [address] [address]Tel: ~~(5 6 (HP) Primary Insurance:MEDICAL MUTUALPolicy Number: [id number] Date:7623-42-93CW [address] [address]CH: [facility] 04/24/2024 MARIE LANG JR.: [address], [place] [address]Ywn: (HP) Primary Insurance:[facility] SUPERMEDPolicy Number: [id number] Date:2024-04-18 MARIE LANG JR.: [id number] [address] [address]Hea: (WP) [facility] 04/24/2024 MARIE LANG JR.: [address] [address]Twn: (HP) Primary Insurance:[facility] SUPERMEDPolicy Number: [id number] Date:2024-04-18 MARIE LANG JR.: [id number] [address] [address]Ndo: (WP) [facility] 03/26/2024 MARIE KINGB: [address], [place] [address]Dar: (HP) (WP) Primary Insurance:AETNAPolicy Number: [id number] Date:8542-73-41Ozsj Name:OLEKSANDR POWERS [id number] HUGHES [address]LO: MARIE KINGB: [id number] [address], [place] [address] [facility] EPIC
--- OUTSIDE RECORDS SUMMARY | 2025-01-14 15:35 | XMS_ITS | Encounter Summary ---
Author Organization [facility] Address [address] [place] [address] Care Team Providers Care Scanning Clerk Name Role Phone Ruddy Cash MD Primary Care Provider [phone] Aaliyah Calixto BUSINESS DEVELOPMENT ASSOCIATE Unavailable [phone] Encounter Details Date Type Department Care Team (Late st Contact Info) Description 05/23/2024 Orders Only [facility] [address] [facility] [place] [address] Aaliyah Calixto NP Social History Tobacco Use Types Packs/Day Years Used Date Smoking Tobacco: Never Smokeless Tobacco: Never Alcohol Use Standard Drinks/Week Comments Never 0 (1 standard drink = 0.6 oz pur e alcohol) PHQ-2 Answer Date Recorded Patient Health Questionnaire-2 Score 0 04/20/2023 Sex and Gender Information Value Date Recorded Sex Assigned at Not on file Legal Sex Male 11:00 PM EDT Gender Identity Not on file Sexual Orientation Not on file documented as of this encounter Plan of Treatment Not on file documented as of this encounter Procedures Procedure Name Priority Date/Time Associated Diagnosis Comments SCANNED LABS Routine 05/23/2024 2:36 PM EST documented in this encounter Results * SCANNED LABS (05/23/2024 2:36 PM EST) Aaliyah Calixto BUSINESS DEVELOPMENT ASSOCIATE LAB CHG PERFORMABLES Fin al Result documented in this encounter Visit Diagnoses Not on filedocumented in this encounter Care Teams Scanning Clerk Relationship Specialty Start Date End Date Ruddy Cash MD PCP - General Family Medicine 11/30/23 Aaliyah Calixto NP Nurse Practitioner Family Medicine 11/30/23 documented as of this encounter
--- OUTSIDE RECORDS SUMMARY | 2025-01-14 15:36 | XMS_ITS | Encounter Summary ---
Author Organization [facility] tem Address [facility] [address] [place] [address] Care Team Providers Care Counter Hop Name Role Phone Shaikh INDY Mendes Primary Care Provider [phone] Encounter Details Date Type Department Care Team (Late st Contact Info) Description 11/23/2024 Results Follow-Up [facility] - Pain Procedures [address] [place] [address] Chad Cisneros MD [address] [place] [address] Bedside Glucose *Place/Obtain serum glucose if >500 per glucometer. Social History Tobacco Use Types Packs/Day Years Used Date Smoking Tobacco: Never Smokeless Tobacco: Never Alcohol Use Standard Drinks/Week Comments No 0 (1 standard drink = 0.6 oz pur e alcohol) AUDIT-C Answer Date Recorded Q1: How often do you have a drink containing alcohol? Never 05/11/2023 Q2: How many drinks containi ng alcohol do you have on a typical day when you are drinking? Patient does not drink Q3: How often do you have si x or more drinks on one occasion? Never 05/11/2023 PHQ-2 Answer Date Recorded Total Score 1 05/11/2023 Childcare Answer Date Recorded Childcare Unknown 09/27/2018 Employment Answer Date Recorded Employment Unknown 09/27/2018 Hunger Screening Answer Date Recorded Within the past 12 months we worried whether our food would run out before we got money to buy more. Never True 10/31/2024 Within the past 12 months th e food we bought just didn't last and we didn't have money to get more. Never True 10/31/2024 Purpose - Life Answer Date Recorded Purpose and direction in life Unknown Sex and Gender Information Value Date Recorded Sex Assigned at Male 12/27/2022 10:19 AM EDT Legal Sex Male 11:57 AM EDT Gender Identity Male 12/27/2022 10:19 AM EDT Sexual Orientation Straight 12/27/2022 10 :19 AM EDT documented as of this encounter Plan of Treatment Upcoming Encounters Date Type Department Care Team (Late st Contact Info) Description 01/23/2025 2:00 PM EDT Office Visit [facility] - Pain Management Clinic [address] [place] [address] Cindy Couch, PA-C [address] [facility] [address] [place] [address] documented as of this encounter Goals Goal Patient Goal Type Associated Problems Recent Progress Patient-Stated? Author discharge General Yes Yojana Denson, RN Note: Evaluation of progress towards goal: To return home upon discharge with his and adult child. documented as of this encounter Visit Diagnoses Not on filedocumented in this encounter Additional Health Concerns Assessment Noted Time PHQ-9 Depression Total Score: 1 05/11/19 24 9:04 AM EST documented as of this encounter Care Teams Counter Hop Relationship Specialty Start Date End Date Shaikh Mendes MD PCP - General Internal Medicine 10/13/21 documented as of this encounter
--- OUTSIDE RECORDS SUMMARY | 2025-01-14 15:36 | XMS_ITS | Encounter Summary ---
Author Organization [facility] Address [address] [place] [address] Care Team Providers Care Cd Mixer Name Role Phone Shaikh INDY Mendes Primary Care Provider [phone] Shaikh INDY Mendes Primary Care Provider [phone] Ruddy Cash MD Primary Care Provider [phone] Aaliyah Calixto ORGANIC CHEMISTRY TEACHER Unavailable [phone] Encounter Details Date Type Department Care Team (Late st Contact Info) Description 05/02/2023 Orders Only [facility] [address] [place] [address] Shaikh Mendes MD [address] [place] [address] Social History Tobacco Use Types Packs/Day Years [...] Procedure Name Priority Date/Time Associated Diagnosis Comments XR CERVICAL SPINE 2-3 VIEWS Routine 04/20/2023 12:04 PM EST documented in this encounter Results * XR cervical spine 2 or 3 views (04/20/2023 12:04 PM EST) Anatomical Region Laterality Modality Spine, C-spine Radiographic Migdalia ging Shaikh Vaughn [facility] XR PROCEDURES Final Result documented in this encounter Visit Diagnoses Not on filedocumented in this encounter Care Teams Cd Mixer Relationship Specialty Start Date End Date Shaikh Mendes MD PCP - General Internal Medicine 10/28/22 08/21/23 Shaikh Mendes MD PCP - General Internal Medicine 08/22/23 11/29/23 Ruddy Cash MD PCP - General Family Medicine 11/30/23 Aaliyah Calixto NP Nurse Practitioner Family Medicine 11/30/23 documented as of this encounter
--- OUTSIDE RECORDS SUMMARY | 2025-01-14 15:36 | XMS_ITS | Encounter Summary ---
Author Organization [facility] Address [id number] [place] [address] Care Team Providers Care Service Line Bus Cleaner Name Role Phone Shaikh INDY Mendes Primary Care Provider [phone] Reason for Referral * Diagnostic Imaging (Routine) - Closed Specialty Diagnoses / Procedures Referred By Obinna bello Referred To Contact Radiology Diagnoses Pain Procedures CT thoracic spine without contrast [facility] [address] [place] [phone] Phone: tel: fax: Referral ID Status Reason Start Date Expiration Date Visits Re quested Visits Authorized [id number] Closed 05/10/2023 05/09/2024 1 1 Encounter Details Date Type Department Care Team (Late st Contact Info) Description 05/10/2023 Orders Only [facility] [address] [place] [phone] Transcribe, Orders Support User Pain (Primary Dx) Social History Tobacco Use Types Packs/Day Years [...] Employment Answer Date Recorded Employment Unknown 09/27/2018 Purpose - Life Answer Date Recorded Purpose and direction in life Unknown Sex and Gender Information Value Date Recorded Sex Assigned at Male 12/27/2022 10:19 AM EDT Legal Sex Male 11:57 AM EDT Gender Identity Male 12/27/2022 10:19 AM EDT Sexual Orientation Straight 12/27/2022 10 :19 AM EDT documented as of this encounter Functional Status * Audit-C Score Answer Date of Assessment Author 0 05/11/2023 9:02 AM Virginie Zhou RN * Question Answer Date of Assessment Author Q1: How often do you have a drink containing alcohol? Never 05/11/2023 9:02 AM Virginie Zhou RN Q2: How many drinks containing alcohol do you have on a typical day when you are drinking? Patient does not drink 05/11/2023 9:02 AM Virginie Zhou RN Q3: How often do you have six or more drinks on one occasion? Never 05/11/2023 9:02 AM Virginie Zhou RN * Question Answer Date of Assessment Author Functional Status Independent 05/11/2023 9:03 AM Virginie Zhou RN documented as of this encounter Plan of Treatment Upcoming Encounters Date Type Department Care Team (Late st Contact Info) Description 01/23/2025 2:00 PM EDT Office Visit [facility] - Pain Management Clinic [address] [place] [address] Cindy Couch PA-C [address] [place] [address] documented as of this encounter Goals Goal Patient Goal Type Associated Problems Recent Progress Patient-Stated? Author discharge General Yes Yojana Denson RN Note: Evaluation of progress towards goal: To return home upon discharge with his and adult child. documented as of this encounter Results * CT thoracic spine without contrast (05/09/2023 12:40 AM EST) us Scanning Provider External IMG CT ORDERABLES Fin al Result documented in this encounter Visit Diagnoses Diagnosis Pain- Primary Generalized pain documented in this encounter Additional Health Concerns Assessment Noted Time PHQ-9 Depression Total Score: 0 01/11/20 20 9:17 AM EDT documented as of this encounter Care Teams Service Line Bus Cleaner Relationship Specialty Start Date End Date Shaikh Mendes MD PCP - General Internal Medicine 10/13/21 documented as of this encounter
--- OUTSIDE RECORDS SUMMARY | 2025-01-14 15:36 | XMS_ITS | Encounter Summary ---
Author Organization [facility] Address [address] [place] [address] Care Team Providers Care Intellectual Property Paralegal Name Role Phone Shaikh INDY Mendes Primary Care Provider [phone] Shaikh INDY Mendes Primary Care Provider [phone] Ruddy Cash MD Primary Care Provider [phone] Aaliyah Calixto METEOROLOGY PROFESSOR Unavailable [phone] Reason for Referral * Imaging (Routine) - Closed Specialty Diagnoses / Procedures Referred By Contac t Referred To Contact Radiology Diagnoses Neck pain, acute Procedures MR cervical spine wo contrast Shaikh Mendes MD Phone: tel: fax: [facility] [address] [place] [address] Phone: tel: fax: Referral ID Status Reason Start Date Expiration Date Visits Re quested Visits Authorized [id number] Closed 04/27/2023 10/24/2023 1 1 Encounter Details Date Type Department Care Team (Late st Contact Info) Description 04/27/2023 Orders Only [facility] [address] [facility] [place] [address] Shaikh Mendes MD [address] [place] [address] Neck pain, acute (Primary Dx) Social History Tobacco Use Types [...] on file documented as of this encounter Progress Notes * Shaikh Vaughn MD - 04/27/2023 9:30 AM ESTAssociated Problem(s): Neck pain, acute (Deleted) Acute on chronic neck pain, persistent, worsens with neck extension with shooting pain, tingling and numbness in his right upper extremity. No trauma or prior hx of neck pain/injury or surgery. Pain ongoing for few weeks, acutely worsened in past few days. Exam indicative/concerning for acute cervical plexopathy/myelopathy with abnormal neurological exam(numbness/weakness in C5-6 nerve distribution. XR cervical spine revealed reversal of cervical lordosis and moderate degenerative changes at C6-7. Will order MRI as severe persistent pain, neurological symptoms and was barely able to participate in PT * Shaikh Vaughn MD - 04/27/2023 9:27 AM ESTAssociated Problem(s): Cervical cord compression with myelopathy (HCC) >>ASSESSMENT AND PLAN FOR NECK PAIN, ACUTE WRITTEN ON 04/27/2023 9:30 AM BY SHAIKH VAUGHN MD Acute on chronic neck pain, persistent, worsens with neck extension with shooting pain, tingling and numbness in his right upper extremity. No trauma or prior hx of neck pain/injury or surgery. Pain ongoing for few weeks, acutely worsened in past few days. Exam indicative/concerning for acute cervical plexopathy/myelopathy with abnormal neurological exam(numbness/weakness in C5-6 nerve distribution. XR cervical spine revealed reversal of cervical lordosis and moderate degenerative changes at C6-7. Will order MRI as severe persistent pain, neurological symptoms and was barely able to participate in PT documented in this encounter Plan of Treatment Scheduled Orders Name Type Priority Associated Diagnoses Orde r Schedule MR cervical spine wo contrast Imaging Routine Neck pain, acute Expected: 04/27/2023, Expires: 04/27/2024 documented as of this encounter Visit Diagnoses Diagnosis Neck pain, acute- Primary documented in this encounter Care Teams Intellectual Property Paralegal Relationship Specialty Start Date End Date Shaikh Mendes MD PCP - General Internal Medicine 10/28/22 08/21/23 Shaikh Mendes MD PCP - General Internal Medicine 08/22/23 11/29/23 Ruddy Cash MD PCP - General Family Medicine 11/30/23 Aaliyah Calixto NP Nurse Practitioner Family Medicine 11/30/23 documented as of this encounter
--- OUTSIDE RECORDS SUMMARY | 2025-01-14 15:36 | XMS_ITS | Clinical Summary ---
Author Organization [facility] Address [address] [place] [address] Care Team Providers [employer] Supervisor Name Role Phone Ruddy Cash MD Primary Care Provider [phone] Aaliyah Calixto AFFILIATE MARKETING SPECIALIST Unavailable [phone] Allergies No known active allergies Medications solifenacin (VESIcare) 5 MG tablet Take 5 mg by mouth Daily 07/27/19 25 Active aspirin 81 MG EC tablet Take 81 mg by mouth Daily Active metFORMIN (Glucophage) 500 MG tabletIndicatio ns:Type 2 diabetes mellitus without complication, without long-term current use of insulin (HCC) Take 1 tablet (500 mg) by mouth Daily 90 tablet 11/21/19 25 025 Active atorvastatin (Lipitor) 10 MG tabletIndicatio ns:Hyperlipidem ia, unspecified TAKE 1 TABLET BY MOUTH EVERYDAY AT BEDTIME 30 tablet 1 12/17/19 25 Active atorvastatin (Lipitor) 10 MG tabletIndicatio ns:Hyperlipidem ia, unspecified Take 1 tablet (10 mg) by mouth at bedtime 30 tablet 1 10/16/19 25 025 Discontinued Active Problems Problem Noted Date Diagnosed Date Type 2 diabetes mellitus with other specified co mplication 10/15/2024 Assessment & Plan (10/15/2024 7:14 AM EDT): HLD Colon cancer screening 10/15/2024 Lumbar spondylosis 10/15/2024 Assessment & Plan (10/15/2024 3:14 PM EDT): Referred to Dr Smith Reviewed MRI Type 2 diabetes mellitus, [facility] long-term current use of insulin 08/13/2024 Assessment & Plan (10/15/2024 2:52 PM EDT): Check blood sugars daily, notify if <70 or >200. Take medications (pills or insulin) as directed. Monitor for s/s of hypoglycemia (sweaty, dizziness, nausea, vomiting, or shakiness). Watch for increase in thirst, urination, or appetite. Inspect feet frequently monitoring for open wounds , and also recommend yearly eye exam. Pt should attempt to remain as physically active as chronic conditions allow, as well as trying to follow a diet low in carbohydrates, and simple sugars. Current meds: metformin A1c: 6.8% 10/15/24, 7.2% 07/16/24 Assessment & Plan (08/13/2024 8:12 PM EDT): New dx Will start with metformin at 500mg daily w biggest meal Recommend increased physical activity, cutting back on carbs and sugars Recheck A1c in 3 months Acquired spondylolisthesis of lumbosacral region 08/13/2024 Asymptomatic microscopic hematuria 07/17/2024 Assessment & Plan (08/13/2024 8:18 PM EDT): Pt reports has had Urology work up in [facility] Morbid (severe) obesity due to excess calories 0 07/11/2024 Assessment & Plan (10/15/2024 7:11 AM EDT): Discussed with patient their BMI (actual, verses recommended). We have also discussed lifestyle modifications: attempts to perform physical activity as chronic conditions allow, also to monitor dietary intake: increasing protein/fruits/veggies and lowering carb intake (unless contraindicated). Limit sodas, juices, and sugary drinks. Assessment & Plan (08/13/2024 7:33 AM EDT): Discussed with patient their BMI (actual, verses recommended). We have also discussed lifestyle modifications: attempts to perform physical activity as chronic conditions allow, also to monitor dietary intake: increasing protein/fruits/veggies and lowering carb intake (unless contraindicated). Limit sodas, juices, and sugary drinks. Assessment & Plan (07/11/2024 3:27 PM EDT): Discussed with patient their BMI (actual, verses recommended). We have also discussed lifestyle modifications: attempts to perform physical activity as chronic conditions allow, also to monitor dietary intake: increasing protein/fruits/veggies and lowering carb intake (unless contraindicated). Limit sodas, juices, and sugary drinks. Also discussed oral medications that can be utilized for weight loss, as well as surgical options for weight loss. Hyperlipidemia, unspecified 07/11/2024 Body mass index (BMI) 37.0-37.9, adult Prostate cancer screening 07/11/2024 Chronic thoracic back pain 07/11/2024 Assessment & Plan (07/11/2024 3:49 PM EDT): Check xray Lumbar back pain 07/11/2024 Assessment & Plan (08/13/2024 8:14 PM EDT): Xray with facet arthropathy, retrolithesis, severe disc space narrowing Was not a surgical candidate last year, will obtain updated MRI lumbar spine, and flex/extension views Assessment & Plan (07/11/2024 3:49 PM EDT): Check xray Chest pain 07/11/2024 Assessment & Plan (08/13/2024 7:34 AM EDT): EKG was normal Assessment & Plan (07/11/2024 4:02 PM EDT): No strong hx CAD, has had stress test in the past Will check EKG But I suspicion that it may be more muscle related Fu in 4 weeks Check labs Mixed stress and urge urinary incontinence 03/26 Assessment & Plan (03/26/2024 4:08 PM EST): Increased urinary frequency and urgency. Denies difficulty starting, maintain or stopping urinary flow Denies Pain with urination Blood in urine Burning with urination Discoloration Odor Referral sent to urology Cervical stenosis of spinal canal 05/23/2023 Assessment & Plan (07/11/2024 4:03 PM EDT): Hx of surgery, was cleared from surgeon no need for return last seen 05/12 Cervical cord compression with myelopathy 2023 Assessment & Plan (08/22/2023 1:25 PM EDT): >>ASSESSMENT AND PLAN FOR NECK PAIN, ACUTE WRITTEN ON 04/20/2023 4:08 PM BY SHAIKH PATRICK MD Acute neck pain, persistent, worsens with neck extension with shooting pain, tingling and numbness in his right upper extremity. No trauma or prior hx of neck pain/injury or surgery. Exam indicative/concerning for acute cervical plexopathy/myelopathy with abnormal neurological exam (numbness/weakness in C5-6 nerve distribution. Will start with an XR but based on exam, will likely need an MRI. Trial of medrol dose pack, Meloxicam, baclofen along with PT eval and rx ordered for the patient. Assessment & Plan (08/22/2023 1:25 PM EDT): >>ASSESSMENT AND PLAN FOR NECK PAIN, ACUTE WRITTEN ON 04/21/2023 3:34 PM BY SHAIKH PATRICK MD Acute on chronic neck pain, persistent, worsens with neck extension with shooting pain, tingling and numbness in his right upper extremity. No trauma or prior hx of neck pain/injury or surgery. Pain ongoing for few weeks, acutely worsened in past few days. Exam indicative/concerning for acute cervical plexopathy/myelopathy with abnormal neurological exam (numbness/weakness in C5-6 nerve distribution. XR cervical spine revealed reversal of cervical lordosis and moderate degenerative changes at C6-7. Trial of medrol dose pack, Meloxicam, baclofen along with PT eval and rx ordered for the patient. Assessment & Plan (08/22/2023 1:25 PM EDT): >>ASSESSMENT AND PLAN FOR NECK PAIN, ACUTE WRITTEN ON 04/27/2023 9:30 AM BY SHAIKH PATRICK MD Acute on chronic neck pain, persistent, worsens with neck extension with shooting pain, tingling and numbness in his right upper extremity. No trauma or prior hx of neck pain/injury or surgery. Pain ongoing for few weeks, acutely worsened in past few days. Exam indicative/concerning for acute cervical plexopathy/myelopathy with abnormal neurological exam (numbness/weakness in C5-6 nerve distribution. XR cervical spine revealed reversal of cervical lordosis and moderate degenerative changes at C6-7. Will order MRI as severe persistent pain, neurological symptoms and was barely able to participate in PT Assessment & Plan (08/22/2023 1:25 PM EDT): >>ASSESSMENT AND PLAN FOR NECK PAIN, ACUTE WRITTEN ON 04/28/2023 3:46 PM BY SHAIKH PATRICK MD Acute on chronic neck pain, persistent, worsens with neck extension with shooting pain, tingling and numbness in his right upper extremity. No trauma or prior hx of neck pain/injury or surgery. Pain ongoing for few weeks, acutely worsened in past few days. Exam indicative/concerning for acute cervical plexopathy/myelopathy with abnormal neurological exam (numbness/weakness in C5-6 nerve distribution. XR cervical spine revealed reversal of cervical lordosis and moderate degenerative changes at C6-7. No improvement with PT, if anything he feels worse after each PT session. Patient unable to return to work due to persistent pain, numbness in his hands and this has worsened from before. Will start on Gabapentin. Patient counseled and educated on adverse effects, drug interactions and to reach out to office/pharmacy if questions or concerns related to new medications. Referred to Pain physician. MRI neck ordered, pending PA. Assessment & Plan (08/22/2023 1:25 PM EDT): S/p cervical fusion for it on 06/13/23 Doing well. Denies neck pain, weakness/numbness. Returned to work this month. C/w gabapentin 300 at bedtime. Assessment & Plan (05/23/2023 4:57 PM EST): Patient was being seen as outpatient for neck pain. Due to abnormal neurological exam - we ordered an MRI for him. He was also undergoing PT. He had a fall at home and was unable to ambulate after wards and was seen at [facility] where work up revealed acute cervical cord compression. Patient was transferred to [facility] and had cervical fusion for it on 06/13/23 and is seen her today after hospital discharge. He is doing well. Denies neck pain, weakness. Still experiencing numbness in hands bilaterally. Chondromalacia of patella 04/07/2023 Late effect of fracture of lower extremity 04/07 Other chronic pain 04/07/2023 Primary insomnia 04/07/2023 Stiffness of ankle joint, right 04/07/2023 Resolved Problems Problem Noted Date Diagnosed Date Resolved Date Pre-diabetes 07/11/2024 10/15/2024 Assessment & Plan (07/11/2024 3:33 PM EDT): >>ASSESSMENT AND PLAN FOR TYPE 2 DIABETES MELLITUS WITHOUT COMPLICATIONS (CMS/[facility]) WRITTEN ON 07/11/2024 7:07 AM BY ISATU PAYNE NP Check blood sugars daily, notify if <70 or >200. Take medications (pills or insulin) as directed. Monitor for s/s of hypoglycemia (sweaty, dizziness, nausea, vomiting, or shakiness). Watch for increase in thirst, urination, or appetite. Inspect feet frequently monitoring for open wounds , and also recommend yearly eye exam. Pt should attempt to remain as physically active as chronic conditions allow, as well as trying to follow a diet low in carbohydrates, and simple sugars. A1c: Assessment & Plan (07/11/2024 4:02 PM EDT): Check blood sugars daily, notify if <70 or >200. Take medications (pills or insulin) as directed. Monitor for s/s of hypoglycemia (sweaty, dizziness, nausea, vomiting, or shakiness). Watch for increase in thirst, urination, or appetite. Inspect feet frequently monitoring for open wounds , and also recommend yearly eye exam. Pt should attempt to remain as physically active as chronic conditions allow, as well as trying to follow a diet low in carbohydrates, and simple sugars. Check a1c Thoracic back pain 07/11/2024 Class 2 obesity due to exces s calories without serious comorbidity in adult 08/22/2023 Assessment & Plan (03/26/2024 3:47 PM EST): Discussed with patient their BMI (actual, verses recommended). We have also discussed lifestyle modifications: attempts to perform physical activity as chronic conditions allow, also to monitor dietary intake: increasing protein/fruits/veggies and lowering carb intake (unless contraindicated). Limit sodas, juices, and sugary drinks. Also discussed oral medications that can be utilized for weight loss, as well as surgical options for weight loss. Assessment & Plan (08/22/2023 1:26 PM EDT): On Ozempic. Losing weight on it. He gained some weight in between because of his illness, neck pain that required hospital stay and surgery. C/w same Body mass index (BMI) of 40. 1 to 44.9 in adult 05/23/2023 07/11/2024 Hospital discharge follow-up 05/23/2023 07/11/2024 Assessment & Plan (05/23/2023 4:57 PM EST): Patient here for follow up after recent hospital admission at Reviewed hospital records. Answered patient's questions and concerns related to hospital stay/medication changes/results of testing. Other spondylosis with myelo nayan, cervical region 05/11/2023 07/11/2024 Cervical myelopathy 05/10/2023 07/12/19 25 Body mass index (BMI) 40.0-44.9, adult 04/07/2023 07/11/2024 Encounters Date Type Department Care Team Description 12/16/2024 [facility]ill [facility] [address] [place] [id number] Isatu Payne NP Hyperlipidemia, unspecified 11/19/2024 Refill [facility] [address] [place] [id number] Isatu Payne NP Type 2 diabetes mellitus without complication, without long-term current use of insulin (HCC) 10/15/2024 2:20 PM EDT Office Visit [facility] [address] [place] [address] Isatu Payne NP Type 2 diabetes mellitus without complication, without long-term current use of insulin (HCC) (Primary Dx); Morbid (severe) obesity due to excess calories (CMS-HCC); Type 2 diabetes mellitus with other specified complication (HCC); Hyperlipidemia, unspecified ; Colon cancer screening; Lumbar spondylosis 10/15/2024 Bamboo flowsheet [facility] [address] [place] [phone] Isatu Payne NP 10/14/2024 Travel from Last 3 Months Immunizations Immunization Administration Dates Next Due Hep B, Adolescent or Pediatric 07/15/1997,1996,01/10/1997 Influenza, injectable, quadr ivalent, preservative free 04/23/2021 Rabies, intramuscular 09/30/2012 Tdap 01/24/2016 Family History Medical History Relation Name Comments No Known Problems Daughter No Known Problems Son 1 No Known Problems Son 2 Relation Name Status Comments Daughter Alive Father Mother Other Spouse Alive Son 1 Alive Son 2 Alive Social History Tobacco Use Types Packs/Day Years Used Date Smoking Tobacco: Never Smokeless Tobacco: Never Tobacco Cessation:Counseling Given: Not Answered Alcohol Use Standard Drinks/Week Comments Never 0 (1 standard drink = 0.6 oz pur e alcohol) B1300 Health Literacy Answer Date Recor ded How often do you need to hav e someone help you when you read instructions, pamphlets, or other written material from your doctor or pharmacy? Never 10/14/2024 Humiliation, Afraid, Rape, and Kick questionnair e Answer Date Recorded Within the last year, have y ou been afraid of your partner or ex-partner? No 10/14/2024 Within the last year, have y ou been humiliated or emotionally abused in other ways by your partner or ex-partner? No Within the last year, have y ou been kicked, hit, slapped, or otherwise physically hurt by your partner or ex-partner? No 10/14/2024 Within the last year, have y ou been raped or forced to have any kind of sexual activity by your partner or ex-partner? No 10/14/2024 Social Connection and Isolat ion Panel [NHANES] Answer Date Recorded In a typical week, how many times do you talk on the phone with family, friends, or neighbors? Three times a week 10/14/2024 How often do you get togethe r with friends or relatives? More than three times a week 10/14/2024 How often do you attend chur ch or religion services? Never 10/14/2024 Do you belong to any clubs o r organizations such as judaism groups, unions, fraternal or athletic groups, or school groups? Yes 10/14/2024 How often do you attend meet ings of the clubs or organizations you belong to? Never 10/14/2024 Are you , , di vorced, , never , or living with a partner? 10/14/2024 AUDIT-C Answer Date Recorded Q1: How often do you have a drink containing alcohol? Never 10/14/2024 Q2: How many drinks containi ng alcohol do you have on a typical day when you are drinking? Patient does not drink Q3: How often do you have si x or more drinks on one occasion? Never 10/14/2024 Overall Financial Resource Strain (CARDIA) Answe r Date Recorded How hard is it for you to pa y for the very basics like food, housing, medical care, and heating? Not hard at all 10/14/2024 PHQ-2 Answer Date Recorded Patient Health Questionnaire-2 Score 0 04/20/2023 [facility] - Occupational Stress Questionnaire Answer Date Recorded Do you feel stress - tense, restless, nervous, or anxious, or unable to sleep at night because your mind is troubled all the time - these days? Not at all 10/14/2024 Exercise Vital Sign Answer Date Recorde d On average, how many days pe r week do you engage in moderate to strenuous exercise (like a brisk walk)? 0 days 10/14/2024 On average, how many minutes do you engage in exercise at this level? 0 min 10/14/2024 Hunger Vital Sign Answer Date Recorded Within the past 12 months, y ou worried that your food would run out before you got the money to buy more. Never true 10/15/19 25 Within the past 12 months, t he food you bought just didn't last and you didn't have money to get more. Never true 10/14/2024 PRAPARE - Transportation Answer Date Re corded In the past 12 months, has l ack of transportation kept you from medical appointments or from getting medications? No 09/17 In the past 12 months, has l ack of transportation kept you from meetings, work, or from getting things needed for daily living? No 10/14/2024 Housing Stability Vital Sign Answer Haider e Recorded In the last 12 months, was t here a time when you were not able to pay the mortgage or rent on time? No 10/14/2024 In the past 12 months, how m any times have you moved where you were living? 0 10/14/2024 At any time in the past 12 m [facility], were you homeless or living in a custodial (including now)? No 10/14/2024 Sex and Gender Information Value Date Recorded Sex Assigned at Not on file Legal Sex Male 11:00 PM EDT Gender Identity Not on file Sexual Orientation Not on file Last Filed Vital Signs Vital Sign Reading Time Taken Comments Blood Pressure 118/78 10/15/2024 2:26 PM EDT Pulse 80 10/15/2024 2:26 PM EDT Temperature 36.6 C (97.9 F) 10/15/2024 2:26 PM EDT Respiratory Rate 18 10/15/2024 2:26 PM EDT Oxygen Saturation 95% 10/15/2024 2:26 PM EDT Inhaled Oxygen Concentration - - Weight 123 kg (270 lb 12.8 oz) 10/15/2024 2:26 P M EDT Height 177.8 cm (5' 10 ) 03/26/2024 3:23 PM EST Body Mass Index 38.86 03/26/2024 3:23 PM EST Plan of Treatment Health Maintenance Due Date Last Done Comments CT Colonography 1969 Colonoscopy 1969 FIT 1969 FOBT 1969 Sigmoidoscopy 1969 Influenza Vaccine (#1) 2024 04/23/2021 Diabetes: Urine Protein Screening 07/16/2025 025 Colorectal Cancer Screening 10/31/2027 FIT-DNA 10/31/2027 10/30/2024, 11/05/2021 Diabetes: Hemoglobin A1C Discontinued 10/15/2024 Diabetes: Retinopathy Screening Discontinued Procedures Procedure Name Priority Date/Time Associated Diagnosis Comments LAB COLOGUARD COLON CANCER SCREEN Routine 10/30/2024 7:00 PM EDT Colon cancer screening POCT GLYCOSYLATED HEMOGLOBIN (HGB A1C) Routine 10/15/2024 2:39 PM EDT Type 2 diabetes mellitus without complication, without long-term current use of insulin (HCC) from Last 3 Months Results * Cologuard?? colon cancer screening (10/30/2024 7:00 PM EDT) NONINV COLON CA DNA+OCC BLD SCRN STL-IMP Negative Negative 11/11/2024 6:01 AM EDT [facility] (CLIA #:[id number]) Comment: The Cologuard (TM) test was performed on this specimen. NEGATIVE TEST RESULT. A negative Cologuard result indicates a low likelihood that a colorectal cancer (CRC) or advanced adenoma (adenomatous polyps with more advanced pre-malignant features) is present. The chance that a person with a negative Cologuard test has a colorectal cancer is less than 1 in 1500 (negative predictive value >99.9%) or has an advanced adenoma is less than 5.3% (negative predictive value 94.7%). These data are based on a prospective cross-sectional study of 10,000 individuals at average risk for colorectal cancer who were screened with both Cologuard and colonoscopy. (Rashel Ho al, N Engl J Med 2014;370(14):1286- 1297) The normal value (reference range) for this assay is negative. COLOGUARD RE-SCREENING RECOMMENDATION: Periodic colorectal cancer screening is an important part of preventive healthcare for asymptomatic individuals at average risk for colorectal cancer. Following a negative Cologuard result, the [place] [employer] and U.S. [facility]-Society Task Force screening guidelines recommend a Cologuard re-screening interval of 3 years. References: [employer] Guideline for Colorectal Cancer Screening: https://www.cancer.org/cancer/ddwwk-nydzcg-wnlkvf/ibkusqdpd-noduhulmz-vrjqjre/ac s-rec ommendations.html.; Yogi DK, Debo CR, Kate AlvesK, Colorectal Cancer Screening: Recommendations for Physicians and Patients from the U.S. Multi-Society Task Force on Colorectal Cancer Screening , Am J Gastroenterology 2017; 112:9636-8114. TEST DESCRIPTION: Composite algorithmic analysis of stool DNA-biomarkers with hemoglobin immunoassay. Quantitative values of individual biomarkers are not reportable and are not associated with individual biomarker result reference ranges. Cologuard is intended for colorectal cancer screening of adults of either sex, 45 years or older, who are at average-risk for colorectal cancer (CRC). Cologuard has been approved for use by the U.S. FDA. The performance of Cologuard was established in a cross sectional study of average-risk adults aged 50-84. Cologuard performance in patients ages 45 to 49 years was estimated by sub-group analysis of near-age groups. Colonoscopies performed for a positive result may find as the most clinically significant lesion: colorectal cancer [4.0%], advanced adenoma (including sessile serrated polyps greater than or equal to 1cm diameter) [20%] or non- advanced adenoma [31%]; or no colorectal neoplasia [45%]. These estimates are derived from a prospective cross-sectional screening study of 10,000 individuals at average risk for colorectal cancer who were screened with both Cologuard and colonoscopy. (Rashel Ho al, N Engl J Med 2014;370(14):6609-4036.) Cologuard may produce a false negative or false positive result (no colorectal cancer or precancerous polyp present at colonoscopy follow up). A negative Cologuard test result does not guarantee the absence of CRC or advanced adenoma (pre-cancer). The current Cologuard screening interval is every 3 years. ([place] [employer] and U.S. Multi-Society Task Force). Cologuard performance data in a 10,000 patient pivotal study using colonoscopy as the reference method can be accessed at the following location: www.[employer].Clone/results. Additional description of the Cologuard test process, warnings and precautions can be found at www.cologTactigard.com. Stool specimen (specimen) 10/30/2024 7:00 PM EDT 11/01/2024 12:45 PM EDT Isatu Payne NP LAB MOLECULAR DIAGNOSTICS ORDER MAHIN Final Result .[employer] (CLIA #:[id number]) [address] [id number], [facility] (CLIA #:[id number]) [address] [id number] * (ABNORMAL) POCT glycosylated hemoglobin (Hb A1C) docked device (10/15/2024 2:39 PM EDT) Hemoglobin A1C 6.8 Blood Venous blood specimen / Unknown 10/15/2024 2:39 PM EDT Isatu Payne NP POINT OF CARE TEST ENTER/EDIT O RDERABLES Final Result from Last 3 Months Insurance [address] [place] [address] [facility] Care Teams [employer] Supervisor Relationship Specialty Start Date End Date Ruddy Cash MD PCP - General Family Medicine 11/30/23 Aaliyah Calixto NP Nurse Practitioner Family Medicine 11/30/23
--- OUTSIDE RECORDS SUMMARY | 2025-01-14 15:36 | XMS_ITS | Encounter Summary ---
Author Organization [facility] Address [id number] [place] [address] Care Team Providers Care Legal Technician Name Role Phone Shaikh INDY Mendes Primary Care Provider [phone] Encounter Details Date Type Department Care Team (Late st Contact Info) Description 10/16/2024 Orders Only [facility] [address] [place] [phone] Frieda Thrasher, LEASE OUT WORKER-LOCAL HAZMAT DRIVER [address] [id number] Low back pain, unspecified back pain laterality, unspecified chronicity, unspecified whether sciatica present (Primary Dx) Social History Tobacco Use Types [...] got money to buy more. Never True 10/18/2023 Within the past 12 months th e food we bought just didn't last and we didn't have money to get more. Never True 10/18/2023 Purpose - Life Answer Date Recorded Purpose [...] Description 01/23/2025 2:00 PM EDT Office Visit [facility] [address] [place] [phone] Cindy Couch PA-C [address] [place] [address] documented as of this encounter Goals Goal Patient Goal Type Associated Problems Recent Progress Patient-Stated? Author discharge General Yes Yojana Denson, RN Note: Evaluation of progress towards goal: To return home upon discharge with his and adult child. documented as of this encounter Results * X-ray spine lumbar ap, lateral, flexion and extension only (10/22/2024 10:46 AM EDT) Anatomical Region Laterality Modality MSK, Neuro, Spine, L-spine N/A Compu titus Radiography 10/24/2024 11:4 7 PM EDT Narrative 10/24/2024 11:48 PM EDT EXAM: XR LUMBAR SPINE AP, LATERAL, FLEXION [...] Stevie Callahan MD on 10/24/2024 11:48 PM Procedure Note Stevie Callahan MD - 10/24/2024 EXAM: XR LUMBAR SPINE AP, LATERAL, FLEXION AND EXTENSION ONLY CLINICAL INFORMATION: Low back pain, unspecified back pain laterality,unspecified chronicity, unspecified whether sciatica present. COMPARISON: None. FINDINGS: The lumbar spine maintains a normal lordotic curvature. Minimal 1degenerative anterolisthesis of L4 on L5 and minimal degenerativeretrolisthesis of L5 on S1 is stable in flexion and extension. There is nosignificant loss of the vertebral body heights. There is localizedmoderate L5-S1 degenerative disc disease. There is no radiographic evidence for an acutedisplaced fracture. IMPRESSION: 1. No evidence for an acute displaced fracture of the lumbar spine. 2. Minimal grade 1 degenerative anterolisthesis of L4 on L5 and minimaldegenerative retrolisthesis of L5 on S1, stable in flexion andextension. Finalized by Stevie Callahan MD on 10/24/2024 11:48 PM Frieda Thrasher LEASE OUT WORKER-LOCAL HAZMAT DRIVER IMG DIAGNOSTIC IMAGING ORDERABLES Final Result documented in this encounter Visit Diagnoses Diagnosis Low back pain, unspecified back pain laterality, unspecified chronicity, unspecified whether sciatica present- Primary Low back pain, unspecified back pain laterality, unspecified chronicity, unspecified whether sciatica present documented in this encounter Additional Health Concerns Assessment Noted Time PHQ-9 Depression Total Score: 1 05/11/19 24 9:04 AM EST documented as of this encounter Care Teams Legal Technician Relationship Specialty Start Date End Date Shaikh Mendes MD PCP - General Internal Medicine 10/13/21 documented as of this encounter
--- OUTSIDE RECORDS SUMMARY | 2025-01-14 15:36 | XMS_ITS | Clinical Summary ---
Author Organization [facility] Address [address], [address] [place] [address] Care Team Providers Care Bindery Machine Operator Name Role Phone Nilo Evans APRN - FARM PLANNER Primary Care Provider Allergies No known active allergies Medications No known medications Active Problems No known active problems Family History Medical History Relation Name Comments Dementia Father COPD Maternal Grandmother Dementia Mother Diabetes Mother Relation Name Status Comments Father Maternal Grandfather Maternal Grandmother Mother Paternal Grandfather Paternal Grandmother Social History Tobacco Use Types Packs/Day Years Used Date Smoking Tobacco: Never Smokeless Tobacco: Never Alcohol Use Standard Drinks/Week Comments Not Currently 0 (1 standard drink = 0.6 oz pur e alcohol) PHQ-2 Answer Date Recorded PHQ-9 Total Score 0 10/12/2019 Sex and Gender Information Value Date Recorded Sex Assigned at Not on file Legal Sex Male 9:40 AM EDT Gender Identity Not on file Sexual Orientation Not on file Last Filed Vital Signs Vital Sign Reading Time Taken Comments Blood Pressure 116/82 12/11/2019 1:45 PM EDT Pulse 63 10/12/2019 10:49 AM EDT Temperature 36.1 C (97 F) 12/11/2019 1:45 PM EDT Respiratory Rate - - Oxygen Saturation 98% 10/12/2019 10: 49 AM EDT Inhaled Oxygen Concentration - - Weight 132.8 kg (292 lb 12.8 oz) 12/11/2019 1:45 PM EDT Height - - Body Mass Index - - Plan of Treatment Not on file Insurance [employer] Care Teams Bindery Machine Operator Relationship Specialty Start Date End Date Nilo Evans, WALLPAPER HANGER - FARM PLANNER [address] [place] [address] PCP - General Family Nurse Practitioner 10/12/19
--- OUTSIDE RECORDS SUMMARY | 2025-01-14 15:36 | XMS_ITS | Encounter Summary ---
Author Organization [facility] Address [address] [place] [address] Care Team Providers Care Fishing Tackle Repairer Name Role Phone Shaikh INDY Mendes Primary Care Provider [phone] Shaikh INDY Mendes Primary Care Provider [phone] Ruddy Cash MD Primary Care Provider [phone] Aaliyah Calixto NP Unavailable [phone] Encounter Details Date Type Department Care Team (Late st Contact Info) Description 04/21/2023 Clinisync Result Encounter [facility] External Department Unsolicited Shaikh Mendes MD [address] [facility] [place] [address] Social History Tobacco Use Types Packs/Day Years [...] Date/Time Associated Diagnosis Comments XR CERVICAL SPINE 2-3V 04/21/2023 8:27 AM EST documented in this encounter Results * XR CERVICAL SPINE 2-3V (04/21/2023 8:27 AM EST) Anatomical Region Laterality Modality Other 04/21/2023 8:27 AM EST Narrative 04/21/2023 8:30 [place] [address] XRay Report Signed Patient: OLEKSANDR LANG MR#: [id number] : 1970 Acct:[id number] Age/Sex: 52 / M ADM Date: 04/20/23 Loc: RAD Attending Dr: Shaikh Vaughn Pitt Ordering Physician: Shaikh Sweetie Mendes Date of Service: 04/20/23 Procedure(s): XR cervical spine 2-3V Accession Number(s): [id number] cc: Shaikh Sweetie Mendes [place] [address] Patient Name: OLEKSANDR LANG MRN: [id number] date: 1970 Sex: M Assigned Patient Location: [facility] Current Patient Location: Accession/Order Number: [id number] Exam Date: 04/20/2023 17:18 Report Date: 04/21/2023 08:27 At the request of: SHAIKH VAUGHN Procedure: XR cervical spine 2-3V EXAMINATION: XR cervical spine 2-3V HISTORY: neck pain M54.2 COMPARISON: No relevant comparison available. FINDINGS: BONES: Reversal of normal cervical lordosis. No acute fracture or spondylolisthesis. Shtr-fk-oheaqvhq degenerative changes most significant C6-C7 DISC SPACES: Moderate disc space narrowing C6-C7 PARASPINOUS: Negative. No paraspinous abnormality is seen. OTHER: Negative. XR/XR cervical spine 2-3V IMPRESSION: Moderate degenerative changes C6-C7 with reversal cervical lordosis Electronically authenticated by: SUMAYA LOVE Date: 04/21/2023 08:27 Dictated By: Sumaya Love M.D. Signed By: 04/21/23829 DD/ 6 TD/TT: Supervisor Packing Room: Procedure Note Radiology, Radiologist, - 04/21/2023 [place] [address] XRay Report Signed Patient: OLEKSANDR LANG WMR#: [id number] : 1970Acct:[id number] Age/Sex: 52 / MADM Date: 04/20/23 Loc: RAD Attending Dr: Shaikh Vaughn Pitt Ordering Physician: Shaikh Sweetie Mendes Date of Service: 04/20/23 Procedure(s): XR cervical spine 2-3V Accession Number(s): [id number] cc: Shaikh Sweetie Mendes [place] [address] Patient Name: OLEKSANDR LANG MRN: [id number] date: 1970 Sex: M Assigned Patient Location: [facility] Current Patient Location: Accession/Order Number: [id number] Exam Date: 04/20/2023 17:18 Report Date: 04/21/2023 08:27 At the request of: SHAIKH VAUGHN Procedure: XR cervical spine 2-3V EXAMINATION: XR cervical spine 2-3V HISTORY: neck pain M54.2 COMPARISON: No relevant comparison available. FINDINGS: BONES: Reversal of normal cervical lordosis. No acute fracture or spondylolisthesis. Ygsp-qi-tepqyzff degenerative changes most significant C6-C7 DISC SPACES: Moderate disc space narrowing C6-C7 PARASPINOUS: Negative. No paraspinous abnormality is seen. OTHER: Negative. XR/XR cervical spine 2-3V IMPRESSION: Moderate degenerative changes C6-C7 with reversal cervical lordosis Electronically authenticated by: SUMAYA LOVE Date: 04/21/2023 08:27 Dictated By: Sumaya Love M.D. Signed By:04/21/23829 DD/ 6 TD/TT: Supervisor Packing Room: Shaikh Vaughn [facility] Final Result documented in this encounter Visit Diagnoses Not on filedocumented in this encounter Care Teams Fishing Tackle Repairer Relationship Specialty Start Date End Date Fawwad, Jean, MD PCP - General Internal Medicine 10/28/22 08/21/23 Shaikh Mendes MD PCP - General Internal Medicine 08/22/23 11/29/23 Ruddy Cash MD PCP - General Family Medicine 11/30/23 Aaliyah Calixto NP Nurse Practitioner Family Medicine 11/30/23 documented as of this encounter
--- OUTSIDE RECORDS SUMMARY | 2025-01-14 15:36 | XMS_ITS | Clinical Summary ---
Author Organization [facility] Address [id number] [place] [address] Care Team Providers Care Informatics Consultant Name Role Phone Shaikh INDY Mendes Primary Care Provider [phone] Allergies No known active allergies Medications aspirin 81 mg Take 1 tablet (81 mg total) by mouth in the morning. Active solifenacin (VESICARE) 5 mg tablet Take 1 tablet (5 mg total) by mouth. Active celecoxib (CeleBREX) 200 mg capsuleIndicatio ns:Lumbar facet arthropathy Take 1 capsule (200 mg total) by mouth in the morning. 30 capsule 1 5 Active metFORMIN (GLUCOPHAGE) 500 mg tablet Take 1 tablet (500 mg total) by mouth in the morning. 5 01/14/20 25 Active Problems Problem Noted Date Diagnosed Date Lumbar spondylosis 10/31/2024 Lumbosacral spondylosis without myelopathy 10/31 Herniated cervical disc 05/11/2023 Other spondylosis with myelopathy, cervical viktor on 05/11/2023 Cervical myelopathy 05/10/2023 Encounters Date Type Department Care Team Description 12/12/2024 2:30 PM EDT Office Visit [facility] [address] [place] [phone] Cindy Couch, PAZuhairC Lumbar spondylosis (Primary Dx) 12/12/2024 Travel 11/23/2024 1:23 PM EDT - 11/23/2024 1:30 PM EDT Surgery [facility] - Pain Procedures [address] [place] [address] Chad Cisneros MD INJECTION BLOCK NERVE MEDIAL BRANCH Bilat L 4/5, 5/1 [74218 (CPT )] 11/23/2024 12:18 PM EDT - 11/23/2024 11:59 PM EDT Hospital Encounter [facility] [address] [place] [address] Chad Cisneros MD Discharge Disposition: Home 11/23/2024 10:15 AM EDT - 11/23/2024 12:17 PM EDT Hospital Encounter [facility] - Radiology [address] [place] [address] Chad Cisneros MD Lumbosacral spondylosis without myelopathy Discharge Disposition: Home 11/23/2024 Results Follow-Up [facility] [address] [place] [address] Chad Cisneros MD Bedside Glucose *Place/Obtain serum glucose if >500 per glucometer. 10/31/2024 10:00 AM EDT Office Visit [facility] [address] [place] [address] Cindy Couch, PAZuhairC Lumbosacral spondylosis without myelopathy (Primary Dx); Lumbar facet arthropathy; Lumbar foraminal stenosis; Lumbar spondylosis 10/29/2024 Travel 10/22/2024 11:00 AM EDT Office Visit [facility] [address] [place] [address] Frieda Thrasher APRN-GUERO Lumbar foraminal stenosis (Primary Dx); Lumbar facet arthropathy; Numbness and tingling of both lower extremities 10/22/2024 10:34 AM EDT - 10/22/2024 11:59 PM EDT Hospital Encounter [facility] [address] [place] [address] Low back pain, unspecified back pain laterality, unspecified chronicity, unspecified whether sciatica present Discharge Disposition: Home 10/22/2024 Travel 10/16/2024 Orders Only [facility] [address] [place] [address] Frieda Thrasher APRN-CNP Low back pain, unspecified back pain laterality, unspecified chronicity, unspecified whether sciatica present (Primary Dx) from Last 3 Months Immunizations Immunization Administration Dates Next Due Hep B, Adolescent or Pediatric 07/15/1997,1996,01/10/1997 Influenza, Injectable, quadrivalent (PF) 022 Rabies, Intramuscular 09/30/2012 Tdap 01/24/2016 Family History Medical History Relation Name Comments Dementia Father Alzheimer's disease Mother Diabetes Mother Heart disease Mother Relation Name Status Comments Father Mother Social History Tobacco Use Types Packs/Day Years Used Date Smoking Tobacco: Never Smokeless Tobacco: Never Tobacco Cessation:Counseling Given: Not Answered Alcohol Use Standard Drinks/Week Comments No 0 [...] got money to buy more. Never True 12/12/2024 Within the past 12 months th e food we bought just didn't last and we didn't have money to get more. Never True 12/12/2024 Purpose - Life Answer Date Recorded Purpose and direction in life Unknown Sex and Gender Information Value Date Recorded Sex Assigned at Male 12/27/2022 10:19 AM EDT Legal Sex Male 11:57 AM EDT Gender Identity Male 12/27/2022 10:19 AM EDT Sexual Orientation Straight 12/27/2022 10 :19 AM EDT Last Filed Vital Signs Vital Sign Reading Time Taken Comments Blood Pressure 130/87 12/12/2024 2:23 PM EDT Pulse 72 12/12/2024 2:23 PM EDT Temperature 35.8 C (96.4 F) 11/23/2024 12:40 PM EDT Respiratory Rate 18 12/12/2024 2:23 PM EDT Oxygen Saturation 97% 12/12/2024 2:23 PM EDT Inhaled Oxygen Concentration - - Weight 120.7 kg (266 lb) 12/12/2024 2:23 PM EDT Height 177.8 cm (5' 10 ) 12/12/2024 2:23 PM EDT Body Mass Index 38.17 12/12/2024 2:23 PM EDT Plan of Treatment Upcoming Encounters Date Type Department Care Team (Late st Contact Info) Description 01/23/2025 2:00 PM EDT Office Visit [facility] [address] [place] [address] Cindy Couch, PAZuhairC [address] [place], [place] [address] Health Maintenance Due Date Last Done Comments Adult BMI Follow Up Plan 1987 Zoster (Shingles) Vaccine (1 of 2) 2019 Depression Screening 05/11/2024 05/11/2023 COVID-19 Vaccine (2024-2 6 season) 2024 05/14/2021, 04/23/2021, 06/23/2020 Influenza Vaccine 12/17/2024 04/23/2021 Adult BMI Screening 12/12/2025 12/12/2024 Tobacco Screening 12/12/2025 12/12/2024 DTaP,Tdap and Td Vaccines (2 - Td or Tdap) 01/23/2026 01/24/2016 Goals Goal Patient Goal Type Associated Problems Recent Progress Patient-Stated? Author discharge General Yes Yojana Denson, RN Note: Evaluation of progress towards goal: To return home upon discharge with his and adult child. Medical Devices Implanted Type Area Fixing Carpenter Device Identifier Shelf Expiration Date Model / Serial / Lot Graft Bn Cllr Bn Mtrx Sm 1cc Vivigen Frmbl Rpl [id number] Rpl Special [id number] - [id number] - [id number] Implanted:Qty: 1 on 05/13/2023 by Mario Smith MD at [facility] [place] Other Implant Lifenet 04/20/2024 [id number]-[id number] / [id number] / Spacer Spnl 16x7mm Coalition Mis 7d 14mm Ti Strl Lf - [id number] Implanted:Qty: 2 on 05/13/2023 by Mario Smith MD at [facility] [place] Other Implant Globus [id number] / / Screw Bn 12mm 3.6mm Slf Drl Va Spne Coalition Ns Rpl Special [id number] - [id number] Implanted:Qty: 5 on 05/13/2023 by Mario Smith MD at [facility] [place] Screw Globus [id number] / / Procedures Procedure Name Priority Date/Time Associated Diagnosis Comments FL FLUOROSCOPY UP TO 1 HOUR Routine 11/23/2024 1:10 PM EDT Lumbosacral spondylosis without myelopathy CT INJ DX/THER AGNT PARAVERT FACET JOINT,IMG GUIDE,LUMBAR/SAC, 1ST LEVEL 11/23/2024 1:05 PM EDT Lumbosacral spondylosis without myelopathy Special Needs Diabetic BEDSIDE GLUCOSE Routine 11/23/2024 12:28 PM EDT XR LUMBAR SPINE AP, LATERAL, FLEXION AND EXTENSION ONLY Routine 10/22/2024 10:46 AM EDT Low back pain, unspecified back pain laterality, unspecified chronicity, unspecified whether sciatica present from Last 3 Months Results * Fluoroscopy less than one hour (11/23/2024 1:10 PM EDT) Narrative SYSTEMGENERATED, DOCUMENTATION - 11/23/2024 1:10 PM EDT No Reading Required. This procedure does not require a formal dictation. Non-Radiologist provider performed procedures can be reviewed under Post-Op, Procedure or Progress notes. For full report details, please reach out to your physician. Effective 09/02/2020 this image will be visible to you in MyChart. Chad Cisneros MD IMG FLUOROSCOPY ORDERABLES Fi nal Result * (ABNORMAL) Bedside Glucose *Place/Obtain serum glucose if >500 per glucometer. (11/23/2024 12:28PM EDT) Bedside Glucose (POC) 138(H) 65 - 99 mg/dL 11/23/2024 12:34 PM EDT [facility] arterial/capilla ry 11/23/2024 12:28 PM EDT 11/23/2024 12:34 PM EDT Chad Cisneros MD POINT OF CARE TEST ORDERABLES Final Result Performing Organization Address City/State/[facility] Co de Phone Number [facility] [address] [place] [address], * X-ray spine lumbar ap, lateral, flexion [...] Callahan MD on 10/24/2024 11:48 PM Frieda Thrasehr RIVET STICKER-PARCEL POST ORDER CLERK IMG DIAGNOSTIC IMAGING ORDERABLES Final Result from Last 3 Months Insurance [address] [place] [address] [employer] WORK[employer] COMPENSATION NEEL Advance Directives * Full Code (Latest Code Status on File) Date Activated Date Inactivated Comments 05/10/2023 11:08 PM 05/14/2023 7:54 PM Care Teams Informatics Consultant Relationship Specialty Start Date End Date Shaikh Mendes MD PCP - General Internal Medicine 10/13/21
--- OUTSIDE RECORDS SUMMARY | 2025-01-14 15:36 | XMS_ITS | Patient Health Record ---
Author Organization [facility] [place] Address [address] [place] [address] Care Team Providers Care Special Machine Stitcher Name Role Phone Noemí Isatu Primary Care Provider Reason For Referral No Information Social History Tobacco Use: Social History Observation Description Date Details (start date - stop date) Never Smoker NA - NA Tobacco Use/Smoking Question Answer Notes Patient is a nonsmoker Alcohol Screen (Audit-C) Question Answer Notes Did you have a drink containing alcohol in the p ast year? No Points 0 Interpretation Negative Problems Problem Type SNOMED Code ICD Code Onset Dates Problem Status W/U Status Risk Notes Problem Chest pain (41437440) Chest pain (R07.9) Active confirmed Problem Body mass index 40+ - severely obese (799607158) Body mass index (BMI) of 40.1 to 44.9 in adult (Z68.41) Active confirmed Plan Of Treatment No Information Insurance Providers Payer Name Payer Address Payer Phone Subscriber Number Group Number Insured Name Patient Relationship to Insured Coverage Start Date Coverage End Date [employer] [place] [address] [place] [address] [id number] Oleksandr Lang Self - patient is the insured 9 Medical (General) History Medical History History ICD Code Gerd Migraines Chronic right ankle pain H/o chest pain Surgical History Surgery Date(Month/Year) Vasectomy Right ankle fx ([place]rett/screws) [place] teeth
--- OUTSIDE RECORDS SUMMARY | 2025-01-14 15:36 | XMS_ITS | Encounter Summary ---
Author Organization [facility] Address [address] [place] [address] Care Team Providers Care Gastrointestinal Technician Name Role Phone Shaikh INDY Mendes Primary Care Provider [phone] Shaikh INDY Mendes Primary Care Provider [phone] Ruddy Cash MD Primary Care Provider [phone] Aaliyah Calixto TACTICAL/MOBILE WATCH OFFICER Unavailable [phone] Encounter Details Date Type Department Care Team (Late st Contact Info) Description 05/09/2023 Orders Only [facility] [address] [place] [address] Shaikh Mendes MD [address] [place] [address] Social History Tobacco Use Types Packs/Day Years [...] Procedure Name Priority Date/Time Associated Diagnosis Comments MRI LUMBAR SPINE WO CONTRAST Routine 05/09/2023 7:39 PM EST MRI LUMBAR SPINE WO CONTRAST Routine 05/09/2023 7:36 PM EST documented in this encounter Results * MRI LUMBAR SPINE WO CONTRAST (05/09/2023 7:39 PM EST) Anatomical Region Laterality Modality Radiographic Migdalia ging us Shaikh Vaughn [facility] XR PROCEDURES Final Result * MRI LUMBAR SPINE WO CONTRAST (05/09/2023 7:36 PM EST) Anatomical Region Laterality Modality Radiographic Migdalia ging Shaikh Vaughn [facility] XR PROCEDURES Final Result documented in this encounter Visit Diagnoses Not on filedocumented in this encounter Care Teams Gastrointestinal Technician Relationship Specialty Start Date End Date Shaikh Mendes MD PCP - General Internal Medicine 10/28/22 08/21/23 Shaikh Mendes MD PCP - General Internal Medicine 08/22/23 11/29/23 Ruddy Cash MD PCP - General Family Medicine 11/30/23 Aaliyah Calixto NP Nurse Practitioner Family Medicine 11/30/23 documented as of this encounter
--- OUTSIDE RECORDS SUMMARY | 2025-01-14 15:36 | XMS_ITS | Encounter Summary ---
Author Organization [facility] Address [address] [place] [address] Care Team Providers Care Ammunition Assembly I Laborer Name Role Phone Shaikh INDY Mendes Primary Care Provider [phone] Shaikh INDY Mendes Primary Care Provider [phone] Ruddy Cash MD Primary Care Provider [phone] Aaliyah Calixto PACKAGING DESIGNER Unavailable [phone] Encounter Details Date Type Department Care Team (Late st Contact Info) Description 04/28/2023 Abstract [facility] [address] [place] [address] Shaikh Mendes MD [address] [place] [address] Social History Tobacco Use Types Packs/Day Years [...] on file documented as of this encounter Visit Diagnoses Not on filedocumented in this encounter Care Teams Ammunition Assembly I Laborer Relationship Specialty Start Date End Date Fawwad, Jean, MD PCP - General Internal Medicine 10/28/22 08/21/23 Shaikh Mendes MD PCP - General Internal Medicine 08/22/23 11/29/23 Ruddy Cash MD PCP - General Family Medicine 11/30/23 Aaliyah Calixto NP Nurse Practitioner Family Medicine 11/30/23 documented as of this encounter
--- OUTSIDE RECORDS SUMMARY | 2025-01-14 15:36 | XMS_ITS | Encounter Summary ---
Author Organization [facility] Address [address] [place] [address] Care Team Providers Care Regulatory Technician Name Role Phone Ruddy Cash MD Primary Care Provider Aaliyah Calixto DE IONIZER OPERATOR Unavailable [phone] Encounter Details Date Type Department Care Team (Late st Contact Info) Description 10/05/2024 External Result Encounter [facility] [address] [place] [address] Isatu Payne NP [address] [facility] [address] Social History Tobacco Use Types Packs/Day Years [...] Procedure Name Priority Date/Time Associated Diagnosis Comments MR LUMBAR SPINE WO CONTRAST 10/05/2024 2:40 PM EDT documented in this encounter Results * MR lumbar spine wo contrast (10/05/2024 2:40 PM EDT) Anatomical Region Laterality Modality Spine, L-spine Magnetic Resonan ce 10/05/2024 2:40 PM EDT Narrative 10/05/2024 2:39 PM EDT THIS EXAM WAS PERFORMED AT [facility] MR LUMBAR SPINE WO CONT: 10/03/2024 PROVIDED [...] Sonia Norton MD on 10/05/2024 2:39 PM Procedure Note Radiology, Radiologist, MD - 10/05/2024 THIS EXAM WAS PERFORMED AT [facility] LUMBAR SPINE WO CONT: 10/03/2024 PROVIDED HISTORY: * 54 years old Male * Lumbar back pain; Acquired spondylolisthesis of lumbosacral region COMPARISON: MRI lumbar spine 09/20/2023 TECHNIQUE: Multiplanar multisequence imaging of the lumbar spine wasperformed. Examination performed without the administration of intravenouscontrast. Findings: The lumbar spine is visualized on sagittal imaging from the thoracolumbarjunction through the sacrum with the lowest complete disc space labeledL5/S1. Mild lumbar lordosis straightening. Minimal retrolisthesis L5 on S1, favordegenerative. Vertebral body heights and facet joint alignment are relatively preserved.Edema along the left greater than right pedicles articular facets at L4and L5, similar to prior, favor degenerative. No suspicious marrow signalabnormality. Disc height loss with desiccation which is moderate at L5-S1 and mild atL4-L5. Visualized spinal cord is within normal limits without signal abnormality.Conus medullaris terminates at L2. Cauda equina nerve roots, withoutsuspicious nodularity or clumping. L1-L2: Ligamentum flavum redundancy. No significant spinal canal orforaminal stenosis. L2-L3: Disc bulge, ligamentum flavum redundancy. Mild abutment of thedescending L3 nerve roots. Mild spinal canal stenosis. Mild bilateralforaminal stenosis. L3-L4: Disc bulge, ligamentum flavum redundancy. Mild spinal stenosis.Mild bilateral foraminal stenosis. L4-L5: Disc bulge with central protrusion component, facet arthrosis,ligamentum flavum redundancy. Mild/moderate spinal canal stenosis.Mild/moderate left greater than right foraminal stenosis. L5-S1: Disc bulge with right foraminal protrusion component. Nosignificant spinal canal stenosis. Moderate right greater than leftforaminal stenosis. Paraspinal soft tissues are within normal limits. No acute process in the visualized abdominal or pelvic compartment. IMPRESSION: Multilevel spondylotic changes most notable at L5/S1 where there ismoderate bilateral foraminal stenosis, overall similar to prior. Finalized by Sonia Norton MD on 10/05/2024 2:39 PM Isatu Payne DE IONIZER OPERATOR IMG MRI PROCEDURES Final Result documented in this encounter Visit Diagnoses Not on filedocumented in this encounter Care Teams Regulatory Technician Relationship Specialty Start Date End Date Ruddy Cash MD PCP - General Family Medicine 11/30/23 Aaliyah Calixto NP Nurse Practitioner Family Medicine 11/30/23 documented as of this encounter
--- OUTSIDE RECORDS SUMMARY | 2025-01-14 15:36 | XMS_ITS | Encounter Summary ---
Author Organization [facility] Address [address] [place] [address] Care Team Providers Care Systems Security Consultant Name Role Phone Shaikh INDY Mendes Primary Care Provider [phone] Shaikh INDY Mendes Primary Care Provider [phone] Ruddy Cash MD Primary Care Provider [phone] Aaliyah Calixto [employer] Unavailable Encounter Details Date Type Department Care Team (Late st Contact Info) Description 06/16/2023 Orders Only [facility] [address] [place] [address] Shaikh Mendes MD [address] [place] [address] Social History Tobacco Use Types Packs/Day Years [...] Name Priority Date/Time Associated Diagnosis Comments MR CERVICAL SPINE W AND WO CONTRAST Routine 05/11/2023 7:54 PM EST documented in this encounter Results * MR cervical spine w and wo contrast (05/11/2023 7:54 PM EST) Anatomical Region Laterality Modality Spine, C-spine Magnetic Resonan ce Shaikh Vaughn [place] [facility] MRI PROCEDURES Final Result documented in this encounter Visit Diagnoses Not on filedocumented in this encounter Care Teams Systems Security Consultant Relationship Specialty Start Date End Date Shaikh Mendes MD PCP - General Internal Medicine 10/28/22 08/21/23 Shaikh Mendes MD PCP - General Internal Medicine 08/22/23 11/29/23 Ruddy Cash MD PCP - General Family Medicine 11/30/23 Aaliyah Calixto NP Nurse Practitioner Family Medicine 11/30/23 documented as of this encounter
[2025-01-14 16:38] LABS: Prostate Specific Antigen Dx 3.06 ng/mL (<=4.00)
== END 2025-01-14 15:34 | disposition home or self-care (01) ==
LOC: LAB 15:34
PROVIDERS: PCP Internal Medicine; Visit Provider Urology
DX: R97.20 Elevated prostate specific antigen [PSA] (principal)
CPT/HCPCS: 36415; 84153